=== PATIENT | male | born 1980 | race Caucasian/White ===

== ENCOUNTER 2016-11-25 16:13 | Emergency (ER) | payer MEDICAID, SELFPAY ==
[~2016-11-25] VITALS: Ht 175.3 cm; Wt 113.4 kg
[~2016-11-25 16:13] MED LIST: CELE40TA PO; Lamictal PO; Remeron PO; TRAZ50TA4 PO
[2016-11-25] MEDS ORDERED: ABIL400I IM (16:39)
[2016-11-25] MEDS ORDERED: KETOROLAC 30 MG/ML VIAL (J1885) IV ONE (17:00)
[2016-11-25] MEDS ORDERED: NS 1,000 ML IV ONE (17:00)
[2016-11-25 17:27] LABS: BASO # 0.1 K/mm3 (0.0-0.2); BASO % 0.9 % (0.0-1.0); EOS # 0.1 K/mm3 (0.0-0.50); EOS % 1.4 % (0.0-3.0); LARGE UNSTAINED CELL # 0.1 K/mm3 (0.0-0.4); LARGE UNSTAINED CELL % 1.3 % (0.0-4.0); LYMPH # 2.3 K/mm3 (1.5-4.5); LYMPH % 24.5 % (24.0-44.0); MEAN CORPUSCULAR HEMOGLOBIN 30.4 pg (27.0-33.0); MEAN CORPUSCULAR HGB CONC 34.9 g/dl (32.0-36.5); MONO # 0.6 K/mm3 (0.0-0.8); MONO % 5.9 % (0.0-5.0); NEUTROPHILS # 6.2 K/mm3 (1.8-7.7); NEUTROPHILS % 66.1 % (36.0-66.0); PLATELET COUNT, AUTOMATED 327 k/mm3 (150-450); RED CELL DISTRIBUTION WIDTH 12.6 % (11.5-14.5); WHITE BLOOD COUNT 9.4 K/mm3 (4.0-10.0)
[2016-11-25 17:47] LABS: ALBUMIN 4.6 GM/DL (3.2-5.2); ALBUMIN/GLOBULIN RATIO 1.53 (1.00-1.93); BILIRUBIN,DIRECT 0.2 MG/DL (0.0-0.2); BILIRUBIN,TOTAL 1.1 MG/DL (0.2-1.0); CALCIUM LEVEL 8.8 MG/DL (8.5-10.1); CREATININE FOR GFR 1.49 MG/DL (0.70-1.30); GLOMERULAR FILTRATION RATE 56.8 (>60); POTASSIUM SERUM 3.5 MEQ/L (3.5-5.1); TOTAL PROTEIN 7.6 GM/DL (6.4-8.2)
[2016-11-25 18:28] VITALS: BP 166/78
== END 2016-11-25 18:29 | disposition home or self-care (01) ==
LOC: M ED 17:00
DX: K42.9 Umbilical hernia without obstruction or gangrene (principal); E86.0 Dehydration; Z98.84 Bariatric surgery status
CPT/HCPCS: 74176; 80048; 80076; 82150; 83605; 83690; 85025; 86140; 96374; 99283; J1885

== ENCOUNTER 2017-01-16 09:51 | Emergency (ER) | payer OTHER, SELFPAY ==
[~2017-01-16] VITALS: Ht 175.3 cm; Wt 118.2 kg
[~2017-01-16 09:51] MED LIST changes: +ABIL400I IM; +TRAZ50TA11 PO; -TRAZ50TA4 PO
[2017-01-16] MEDS ORDERED: ARIP10TAB PO (10:37)
[2017-01-16 11:17] VITALS: BP 143/91
[2017-04-11] MEDS ORDERED: MIRT15TA3 PO (14:25)
[2017-04-11] MEDS ORDERED: CLON-412 PO (14:25)
[2017-04-21] MEDS ORDERED: DEPA250T32 PO (13:34)
[2017-04-21] MEDS ORDERED: RISP1TAB3 PO (13:37)
== END 2017-01-16 11:18 | disposition home or self-care (01) ==
LOC: M ED 10:37
DX: Z76.0 Encounter for issue of repeat prescription (principal); F33.8 Other recurrent depressive disorders; F41.9 Anxiety disorder, unspecified; G40.909 Epilepsy, unspecified, not intractable, without status epilepticus; Z91.030 Bee allergy status; Z91.018 Allergy to other foods; Z98.84 Bariatric surgery status; Z79.899 Other long term (current) drug therapy

== ENCOUNTER 2017-02-03 08:04 | Inpatient (IN) | payer OTHER ==
[~2017-02-03] VITALS: Ht 172.7 cm; Wt 119.2 kg
[~2017-02-03 08:04] MED LIST changes: +ARIP10TAB PO
[2017-02-03 09:23] LABS: MEAN CORPUSCULAR HEMOGLOBIN 30.5 pg (27.0-33.0); MEAN CORPUSCULAR HGB CONC 34.5 g/dl (32.0-36.5); MEAN CORPUSCULAR VOLUME 88.4 fl (80.0-96.0); WHITE BLOOD COUNT 6.4 K/mm3 (4.0-10.0)
[2017-02-03 09:49] LABS: ALBUMIN 3.5 GM/DL (3.2-5.2); ALBUMIN/GLOBULIN RATIO 1.21 (1.00-1.93); ALKALINE PHOSPHATASE 75 U/L (45-117); ALT/SGPT 31 U/L (12-78); ANION GAP 14 MEQ/L (8-16); AST/SGOT 26 U/L (15-37); BILIRUBIN,DIRECT 0.2 MG/DL (0.0-0.2); BILIRUBIN,TOTAL 0.5 MG/DL (0.2-1.0); BLOOD UREA NITROGEN 16 MG/DL (7-18); CALCIUM LEVEL 8.2 MG/DL (8.5-10.1); CARBON DIOXIDE LEVEL 20 MEQ/L (21-32); CHLORIDE LEVEL 115 MEQ/L (98-107); CREATININE FOR GFR 1.06 MG/DL (0.70-1.30); GLOMERULAR FILTRATION RATE > 60.0 (>60); GLUCOSE, FASTING 84 MG/DL (70-105); POTASSIUM SERUM 3.6 MEQ/L (3.5-5.1); SODIUM LEVEL 149 MEQ/L (136-145); TOTAL PROTEIN 6.4 GM/DL (6.4-8.2)
[2017-02-03 11:27] LABS: METHADONE URINE NEGATIVE (NEGATIVE)
[2017-02-03] MEDS ORDERED: MOM 30ML SUSPENSION UDC PO PRN (13:00)
[2017-02-03] MEDS ORDERED: MAALOX 30 ML SUSP *UDC PO PRN (13:00)
[2017-02-03] MEDS ORDERED: ACETAMINOPHEN TAB 650MG DOSE (2X325MG) PO PRN (13:00)
[2017-02-03] MEDS ORDERED: HALOPERIDOL 5 MG TAB PO PRN (13:00)
[2017-02-03 15:17] VITALS: BP 135/82
--- NOTE | 2017-02-03 20:57 | ECGEPIP ---
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
[2017-02-04 06:00] VITALS: BP 126/72
--- NOTE | 2017-02-04 08:56 | HPEPDOC ---
Medical History and Physical Date of Admission Feb 03, 2017 at 12:55 History and Physical PCP: None ATTENDING: Dr. Melecio Sales HPI: 36yoM admitted to [facility] for Depression, being medically examined today. Pt reports poor po intake for at least 2 days prior to admission. Denies any fevers, chills, weakness, fatigue, DON, CP, SOB, cough, palpitations, abdominal pain, N/V/D or changes in bowel or bladder habits. PMHx: Anxiety Depression Insomnia Alcohol use Substance use Obesity. BMI 38.8 History of alcohol-induced seizure 2010, patient states no seizure since. 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 ROS: As noted in HPI, otherwise 11pt ROS of systems reviewed and unremarkable. PE: GEN: 36 yo M, appears stated age. Well-nourished, well developed. No acute distress. Alert and oriented x 3. Pleasant, interactive. HEENT: Normocephalic, atraumatic. Pupils are equal, round, and reactive to light. Extraocular movements are intact. No nystagmus appreciated. Sclera are nonicteric. Conjunctiva without injection. Nose midline. Nasal turbinates without bogginess. EACs both patent BL. TMs both visualized and peralta with good cone of light, no bulging or erythema. No facial asymmetry. Moist mucous membranes. Dentition fair. Pharynx pink and moist, no cobblestoning. Neck supple , trachea midline. No lymphadenopathy or thyromegaly appreciated. CHEST: Regular rate and rhythm, +S1, +S2 LUNGS: Clear to auscultation bilaterally. No wheezes, rales, or rhonchi. Breathing appears symmetric and easy. Patient is speaking in full sentences. No accessory muscle use. ABD: Round, soft, non-tender, non-distended. +Bowel sounds throughout. No rebound or guarding. No costovertebral angle tenderness. EXT: Pulses 2+ bilaterally dorsalis pedis and radial. No lower extremity edema appreciated. SKIN: [place], dry, warm. Capillary refill <2sec. No rashes. NEURO: Alert and oriented x 3. Cranial nerves III-XII are intact. No focal deficits appreciated. EK02/03/17 SINUS RHYTHM NONSPECIFIC T-WAVE ABNORMALITY A&P: 36yoM admitted to [facility] for Depression 1. Psych. Plan per Psychiatry. EKG on file. 2. Hypernatremia. Recheck CMP. Patient reports improved oral intake currently. 3. Elevated CK. Recheck CK. 4. Follow up. No Primary Care Provider. Will attempt to establish PCP on discharge. 5. Substance use. Per psychiatry. Continue with MVI, Thiamine, and Folic Acid supplementation. 6. Mild anemia. Add iron studies, B12, folate. 7. Obesity. Complicates care. FBS WNL, TSH WNL. 8. H/O bariatric surgery. Iron studies, B12, folate as above. Check Vitamin D Level. 9. Staff member Abhishek present throughout exam. Vital Signs Vital Signs Date Time Temp Pulse Resp B/P (MAP) Pulse Ox O2 Delivery O2 Flow Rate FiO2 02/04/17 06:00 98.6 50 17 126/72 (90) Room Air 02/03/17 15:17 96 Laboratory Data Labs 24H Laboratory Tests 2 02/03/17 09:06: Anion Gap 14, Glomerular Filtration Rate > 60.0, Calcium Level 8.2L, Aspartate Amino Transf (AST/SGOT) 26, Alanine Aminotransferase (ALT/SGPT) 31, Alkaline Phosphatase 75, Total Bilirubin 0.5, Direct Bilirubin 0.2, Total Creatine Kinase 702H, Total Protein 6.4, Albumin 3.5, Albumin/Globulin Ratio 1.21, Thyroid Stimulating Hormone (TSH) 0.781, Salicylates Level < 1.7L, Acetaminophen Level < 2.0L, Ethyl Alcohol Level 0.030H 02/03/17 10:53: Urine Amphetamines Screen NEGATIVE, Urine Benzodiazepines Screen NEGATIVE, Urine Opiates Screen NEGATIVE, Urine Methadone Screen NEGATIVE, Urine Barbiturates Screen NEGATIVE, Urine Phencyclidine Screen NEGATIVE, Urine Cocaine Metabolite Screen POSITIVEH, Urine Cannabinoids Screen NEGATIVE CBC/BMP Laboratory Tests 02/03/17 09:06 Red Blood Count 4.32, Mean Corpuscular Volume 88.4, Mean Corpuscular Hemoglobin 30.5, Mean Corpuscular Hemoglobin Concent 34.5, Red Cell Distribution Width 13.0 Home Medications Scheduled Aripiprazole Monohydrate (Lai Danielletena) 400 Mg Inj, 400 MG IM QMONTH Allergies Coded Allergies: Bee Venom (Verified Allergy, Intermediate, swelling, 11/25/16) Soy Allergy (Unverified Allergy, Unknown, diarrhea, 06/08/14) Yessi Huffman Feb 04, 2017 08:56
[2017-02-04] MEDS: MULTIVITAMINS/MINERALS THERAP 1 TAB PO SCH (09:00)
[2017-02-04] MEDS ORDERED: VITAMIN D 50,000 UNITS CAPSULE (ERGOCALCIFEROL 1.25MG) PO SCH (09:00)
[2017-02-04] MEDS: THIAMINE 100 MG TAB PO SCH (09:00)
[2017-02-04] MEDS: FOLIC ACID 1 MG TAB PO SCH (09:00)
[2017-02-04 09:52] LABS: MEAN CORPUSCULAR HEMOGLOBIN 30.5 pg (27.0-33.0); MEAN CORPUSCULAR HGB CONC 34.4 g/dl (32.0-36.5); MEAN CORPUSCULAR VOLUME 88.6 fl (80.0-96.0); RED CELL DISTRIBUTION WIDTH 12.8 % (11.5-14.5); WHITE BLOOD COUNT 5.7 K/mm3 (4.0-10.0)
[2017-02-04 10:15] LABS: ALBUMIN 3.3 GM/DL (3.2-5.2); ALBUMIN/GLOBULIN RATIO 1.22 (1.00-1.93); ALKALINE PHOSPHATASE 74 U/L (45-117); ALT/SGPT 30 U/L (12-78); ANION GAP 7 MEQ/L (8-16); AST/SGOT 20 U/L (15-37); BILIRUBIN,TOTAL 0.5 MG/DL (0.2-1.0); BLOOD UREA NITROGEN 14 MG/DL (7-18); CALCIUM LEVEL 7.8 MG/DL (8.5-10.1); CARBON DIOXIDE LEVEL 29 MEQ/L (21-32); CHLORIDE LEVEL 110 MEQ/L (98-107); CREATININE FOR GFR 1.18 MG/DL (0.70-1.30); GLOMERULAR FILTRATION RATE > 60.0 (>60); GLUCOSE, FASTING 103 MG/DL (70-105); MAGNESIUM LEVEL 2.2 MG/DL (1.8-2.4); SODIUM LEVEL 146 MEQ/L (136-145)
[2017-02-04 10:19] LABS: PERCENT SATURATION 32.7 % (19.7-50.0)
[2017-02-04 11:05] LABS: FOLATE 10.4 NG/ML (>5.4)
[2017-02-04 18:00] VITALS: BP 107/60
[2017-02-04] MEDS: LORazepam 1 MG TAB PO PRN (20:47)
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
[2017-02-05 07:05] VITALS: BP 131/66
[2017-02-05 07:27] LABS: ALBUMIN 3.3 GM/DL (3.2-5.2); ALBUMIN/GLOBULIN RATIO 1.22 (1.00-1.93); ALKALINE PHOSPHATASE 67 U/L (45-117); ALT/SGPT 27 U/L (12-78); ANION GAP 6 MEQ/L (8-16); AST/SGOT 12 U/L (15-37); BILIRUBIN,TOTAL 0.4 MG/DL (0.2-1.0); BLOOD UREA NITROGEN 9 MG/DL (7-18); CALCIUM LEVEL 7.7 MG/DL (8.5-10.1); CARBON DIOXIDE LEVEL 29 MEQ/L (21-32); CHLORIDE LEVEL 112 MEQ/L (98-107); CREATININE FOR GFR 1.02 MG/DL (0.70-1.30); GLOMERULAR FILTRATION RATE > 60.0 (>60); GLUCOSE, FASTING 80 MG/DL (70-105); SODIUM LEVEL 147 MEQ/L (136-145)
[2017-02-05] MEDS: FOLIC ACID 1 MG TAB PO SCH (09:45)
[2017-02-05] MEDS: LORazepam 1 MG TAB PO PRN ×3 (09:45→20:17)
[2017-02-05] MEDS: THIAMINE 100 MG TAB PO SCH (09:45)
[2017-02-05] MEDS: MULTIVITAMINS/MINERALS THERAP 1 TAB PO SCH (09:45)
[2017-02-05 18:00] VITALS: BP 127/68
[2017-02-05] MEDS: traZODone 50 MG TAB PO PRN (20:16)
[2017-02-06 06:51] VITALS: BP 113/63
[2017-02-06] MEDS: MULTIVITAMINS/MINERALS THERAP 1 TAB PO SCH (08:35)
[2017-02-06] MEDS: THIAMINE 100 MG TAB PO SCH (08:35)
[2017-02-06] MEDS: FOLIC ACID 1 MG TAB PO SCH (08:35)
[2017-02-06] MEDS: LORazepam 1 MG TAB PO PRN (11:01)
--- NOTE | 2017-02-06 15:21 | MHIPN ---
DATE: 02/05/2017 The patient today states, "I am doing good." He has no complaints. He says that his mood is good. MENTAL STATUS EXAMINATION: The patient is alert and oriented times three. Eye contact is fair. Psychomotor activity is normal. There is no formal thought disorder. Mood is good. Affect is constricted but appropriate to his mood. He is not psychotic. He is denying suicidal or homicidal ideations. Concentration is fair. Memory is fairly good. Insight and judgment fair. DIAGNOSES: DIAGNOSES: 1. Unspecified mood disorder. 2. R/O Bipolar disorder, mixed. 3. Crack use disorder 4. Alcohol use disorder 5. cocaine use disorder TREATMENT PLAN: At this point, we will continue to monitor the patient for continued resolution of suicidal ideation and continued stabilization of his mood. We will continue to titrate his medications as indicated. KATELYNN
[2017-02-06 18:44] VITALS: BP 138/78
[2017-02-06] MEDS: traZODone 50 MG TAB PO PRN (20:15)
--- NOTE | 2017-02-07 06:43 | MHIPN ---
DATE: 02/06/2017 Patient today states that is doing good. He says "I'm ready to go home." He said he slept good. He has no complaints. MENTAL STATUS EXAMINATION: He is alert and oriented times three. Pleasant and cooperative. Verbally spontaneous. He has no formal thought disorder. He says his mood is good. Affect is flat. He is not psychotic. He is denying suicidal or homicidal ideation. Concentration is fair. Insight and judgment is fair. DIAGNOSES: 1. Unspecified mood disorder. 2. R/O Bipolar disorder, mixed. 3. Crack use disorder 4. Alcohol use disorder 5. cocaine use disorder TREATMENT PLAN: At this point, will continue to monitor the patient for continued resolution of suicidal ideations and continued stabilization. Edited 02/07/2017 @ [id number] olga PACE
[2017-02-07 06:45] VITALS: BP 111/55
[2017-02-07] MEDS: FOLIC ACID 1 MG TAB PO SCH (08:14)
[2017-02-07] MEDS: THIAMINE 100 MG TAB PO SCH (08:14)
[2017-02-07] MEDS: MULTIVITAMINS/MINERALS THERAP 1 TAB PO SCH (08:14)
[2017-02-07] MEDS ORDERED: ARIPiprazole MONOHYDRATE 400 MG INJ (ABILIFY)(J0401) IM SCH (09:00)
[2017-02-07] MEDS: LORazepam 1 MG TAB PO PRN (17:15)
[2017-02-07 18:00] VITALS: BP 112/51
[2017-02-07] MEDS: traZODone 50 MG TAB PO PRN (20:11)
--- NOTE | 2017-02-08 07:18 | MHIPN ---
DATE: 02/07/2017 SUBJECTIVE: Patient reports he is worried because as of tomorrow, he does not have a person to take care of his 11-year-old son, his father will not be able to do it anymore. For that reason, he requests to be discharged, he says his mood has improved since he has been on the Abilify and that he has no intention of using drugs again. MENTAL STATUS EXAMINATION: Patient is alert and oriented times three, cooperative with interview, dressed in hospital clothes. He looks calm and composed, his mood is euthymic, his affect is congruent to mood, full range, appropriate. He denies auditory or visual hallucinations, is not responding to internal stimuli, has no though delusions. Denies suicidal and homicidal ideation. His memory is intact. His attention and concentration are good. His judgment and insight are fair. DIAGNOSIS: 1. Unspecified mood disorder. 2. Rule out bipolar disorder with mixed emotions. 3. Rule out substance induced mood disorder. 4. Substance use disorder. TREATMENT PLAN: Patient was given this afternoon his Abilify Maintena injection, discussed with him future treatment, says he wants to go to [facility] for his substance abuse to the dual diagnosis clinic. He says that he feels fine and he needs to take care of his son and go back to work, discussed with this insurance underwriter his goals and his plans for the future. This insurance underwriter believes the patient is okay to be discharged tomorrow. Will discuss case with case work aide. Will followup.
[2017-02-08 07:29] VITALS: BP 96/52
[2017-02-08] MEDS: MULTIVITAMINS/MINERALS THERAP 1 TAB PO SCH (08:24)
[2017-02-08] MEDS: THIAMINE 100 MG TAB PO SCH (08:24)
[2017-02-08] MEDS: FOLIC ACID 1 MG TAB PO SCH (08:24)
[2017-02-08] MEDS ORDERED: ARIP5TA PO (09:03)
[2017-02-08] MEDS ORDERED: ABIL400I IM (09:03)
--- NOTE | 2017-02-08 21:29 | MHDSPDOC ---
[facility] Discharge Summary Discharge Summary DATE OF ADMISSION: Feb 03, 2017 at 12:55 DATE OF DISCHARGE: Feb 08, 2017 at 10:45 DISCHARGE DIAGNOSES: 1. Bipolar disorder,current episode mixed, moderate. REASON FOR ADMISSION: Patient is a 36-year-old male, who was brought to the ED because he had suicidal thoughts, wanted to "end it all". Patient reports that he had his last Abilify injection about a little bit over a month now. He says he missed his appointment and called to re schedule but he couldn't go the next day because he could not skip [employer] of work (two days in a row) and they wouldn't give him an appointment at a date and time that would work out for him. About five days ago he began feeling "manic", he couldn't go to sleep, had too much energy, felt agitated and anxious but at the same time he was feeling sad. He decided to start using crack because "it is hard to believe but crack calms me down". He states that he started using alcohol when he was approximately 15 years old and cocaine when he was 22, then, he started using crack. The only thing that has helped him to stay out of drugs has been Abilify. He says he uses drugs to "self medicate" CONSULTANTS INVOLVED: None TREATMENT AND PROGRESS ON THE UNIT : Patient had a good response to medications as it was expected because he already had been stabilized on Abilify before he even came to [facility]. As a matter of fact, it was because he missed one injection of Abilify Maintenna that he started using drugs again. He claims that crack cocaine has a calming effect on him, something that he struggles with, because most people don't believe this substance could calm him. He said he started using crack because he had been unable to sleep for 3/4 days and still he had lots of energy but he felt unstable, irritable and stressed. That prompted his suicidal ideation, thinking he could end his life by injecting air in his veins. Patient has a history of substance abuse and had two DUI'S, is on probation for that reason. yesterday, 02/07/17 he reported an improvement in his mood, side he was not longer suicidal, contracted for safety and said he had his family support if he was discharged. Cse manager mining contacted patient's mother who said felt comfortable with him being discharged. HOSPITAL COURSE: As above DISCHARGE ASSESSMENT: Patient was stable upon discharge. Was not psychotic, not suicidal, not homicidal, not delusional. MENTAL STATUS EXAMINATION ON DISCHARGE: Patient is a 36-year old male, who is alert, oriented, cooperative with interview, with good eye contact. Speech is Fluid and spontaneous. Language skills are Fair. Thought processes including: Intact. Thought content: Coherent. Abstract reasoning, and computation: Fair. Description of associations: Good. Description of abnormal or psychotic thoughts: Not present. Judgment: Improved. Insight: Improved. Orientation to Oriented x 3. Recent and remote memory: Intact. Attention span and concentration: Good. Language: Normal. Fund of knowledge: Fair. Mood: "I'm fine". Affect: congruent to mood, appropriate, full range. MEDICATIONS ON DISCHARGE: - Abilify 5 mgs PO BID for bipolar depression - Abilify Mantenna 400 mgs IM Q30 days, next dose on 03/10/17 for bipolar depression PLAN/FOLLOWUP ARRANGEMENTS: Mental Health Appt 1 * [facility] * Address of Clinic or Practice [address] * * Chemical Dependency Appt1 * Chemical Dependency [facility] * * Additional information WALK IN APPOINTMENT TUESDAYS AND THURSDAYS [phone] * Case Management * Care Coordination/Case Management/Supervision Transitional Living Serv * * Medical * [facility]; * Established With This Provider No NEW PT APPOINTMENT * Date Feb 23, 2017 * Time 09:30 * Address of Clinic or Practice [address] [place] [address] * * Additional information The amount of time spent in the coordination of care for this patient was approximately 60 minutes. Vital Signs/I&Os Vital Signs Date Time Temp Pulse Resp B/P (MAP) Pulse Ox O2 Delivery O2 Flow Rate FiO2 02/08/17 07:29 97.5 53 16 96/52 (67) Room Air 02/03/17 15:17 96 Medications Scheduled Aripiprazole (Aripiprazole) 5 Mg Tab, 5 MG PO BID for BIPOLAR DEPRESION, #14 Aripiprazole Monohydrate (Abilify Maintena) 400 Mg Inj, 400 MG IM Q30D for BIPOLAR DEPRESSION, #1 Next injection is due on 03/10/17 Allergies Coded Allergies: Bee Venom (Verified Allergy, Intermediate, swelling, 11/25/16) Soy Allergy (Unverified Allergy, Unknown, diarrhea, 06/08/14) ILDA LOPEZ MD Feb 08, 2017 21:29
[2017-04-11] MEDS ORDERED: MIRT15TA3 PO (14:25)
[2017-04-11] MEDS ORDERED: CLON-412 PO (14:25)
[2017-04-21] MEDS ORDERED: DEPA250T32 PO (13:34)
[2017-04-21] MEDS ORDERED: RISP1TAB3 PO (13:37)
== END 2017-02-08 10:45 | disposition home or self-care (01) | DRG 753 ==
LOC: M ED 08:04 → M ED INP 12:55 → M PSY 15:01
PROVIDERS: ADMIT Psychiatry & Neurology Psychiatry; ATTEND Psychiatry & Neurology Psychiatry
DX: F31.62 Bipolar disorder, current episode mixed, moderate (principal); E87.0 Hyperosmolality and hypernatremia; R45.851 Suicidal ideations; F19.10 Other psychoactive substance abuse, uncomplicated; Z79.899 Other long term (current) drug therapy; Z91.030 Bee allergy status; Z91.018 Allergy to other foods; E66.9 Obesity, unspecified; Z68.38 Body mass index [BMI] 38.0-38.9, adult; Z98.84 Bariatric surgery status; Z83.3 Family history of diabetes mellitus; Z82.49 Family history of ischemic heart disease and other diseases of the circulatory system; R74.8 Abnormal levels of other serum enzymes

== ENCOUNTER 2017-03-13 17:29 | Emergency (ER) | payer OTHER ==
[~2017-03-13] VITALS: Ht 175.3 cm; Wt 109.1 kg
[~2017-03-13 17:29] MED LIST changes: +ARIP5TA PO
[2017-03-13] MEDS ORDERED: NALT50TA4 PO (17:43)
[2017-03-13] MEDS ORDERED: GABA-282 PO (17:43)
[2017-03-13] MEDS ORDERED: ONDANSETRON 4MG/2ML VIAL (J2405) IV ONE (18:30)
[2017-03-13] MEDS ORDERED: NS 1,000 ML IV ONE (18:30)
[2017-03-13] MEDS ORDERED: KETOROLAC 30 MG/ML VIAL (J1885) IV ONE (18:30)
--- NOTE | 2017-03-13 19:20 | REPUSA ---
Clinical history: Right upper quadrant pain. Findings: The pancreas is limited in visualization secondary to overlying bowel gas, but appears germaine sly unremarkable. The liver demonstrates uniform echotexture and echogenicity, with no mass lesions. The gallbladder is unremarkable. The common bile duct measures 5 mm and is within normal limits. The right kidney measures 10.5 cm in length and is unremarkable. There is no ascites. Impression: Unremarkable ultrasound examination of the right upper quadrant.
[2017-03-13 19:38] LABS: CALCIUM OXALATE CRYSTALS SMALL
[2017-03-13 19:38] LABS: BASO # 0.1 K/mm3 (0.0-0.2); BASO % 1.2 % (0.0-1.0); EOS # 0.4 K/mm3 (0.0-0.50); EOS % 4.6 % (0.0-3.0); LARGE UNSTAINED CELL # 0.1 K/mm3 (0.0-0.4); LARGE UNSTAINED CELL % 1.4 % (0.0-4.0); LYMPH # 2.4 K/mm3 (1.5-4.5); LYMPH % 26.7 % (24.0-44.0); MEAN CORPUSCULAR HEMOGLOBIN 30.4 pg (27.0-33.0); MEAN CORPUSCULAR HGB CONC 34.9 g/dl (32.0-36.5); MEAN CORPUSCULAR VOLUME 87.2 fl (80.0-96.0); MONO # 0.6 K/mm3 (0.0-0.8); MONO % 6.7 % (0.0-5.0); NEUTROPHILS # 5.1 K/mm3 (1.8-7.7); NEUTROPHILS % 59.5 % (36.0-66.0); PLATELET COUNT, AUTOMATED 275 k/mm3 (150-450); RED CELL DISTRIBUTION WIDTH 13.4 % (11.5-14.5); WHITE BLOOD COUNT 8.5 K/mm3 (4.0-10.0)
[2017-03-13 19:44] LABS: ALBUMIN 3.6 GM/DL (3.2-5.2); ALBUMIN/GLOBULIN RATIO 1.24 (1.00-1.93); ALKALINE PHOSPHATASE 72 U/L (45-117); ALT/SGPT 26 U/L (12-78); AMYLASE 35 U/L (25-115); ANION GAP 10 MEQ/L (8-16); AST/SGOT 14 U/L (15-37); BILIRUBIN,DIRECT 0.1 MG/DL (0.0-0.2); BILIRUBIN,TOTAL 0.3 MG/DL (0.2-1.0); BLOOD UREA NITROGEN 16 MG/DL (7-18); CALCIUM LEVEL 8.3 MG/DL (8.5-10.1); CARBON DIOXIDE LEVEL 25 MEQ/L (21-32); CHLORIDE LEVEL 114 MEQ/L (98-107); CREATININE FOR GFR 1.23 MG/DL (0.70-1.30); GLOMERULAR FILTRATION RATE > 60.0 (>60); GLUCOSE, FASTING 67 MG/DL (70-105); SODIUM LEVEL 149 MEQ/L (136-145); TOTAL PROTEIN 6.5 GM/DL (6.4-8.2)
[2017-03-13] MEDS ORDERED: PROT1TAB2 PO (20:06)
[2017-03-13] MEDS ORDERED: SUCR1SS PO (20:06)
[2017-03-13 20:13] VITALS: BP 138/84
[2017-03-13] MEDS ORDERED: PANTOPRAZOLE 20 MG TAB PO ONE (20:15)
[2017-03-13] MEDS ORDERED: SUCRALFATE SUSP 1GM/10ML UD PO ONE (20:15)
[2017-03-13] MEDS ORDERED: PANTOPRAZOLE 40MG TAB (PROTONIX) PO ONE (20:15)
[2017-04-11] MEDS ORDERED: MIRT15TA3 PO (14:25)
[2017-04-11] MEDS ORDERED: CLON-412 PO (14:25)
[2017-04-21] MEDS ORDERED: DEPA250T32 PO (13:34)
[2017-04-21] MEDS ORDERED: RISP1TAB3 PO (13:37)
== END 2017-03-13 20:35 | disposition home or self-care (01) ==
LOC: M ED 17:29
DX: K29.20 Alcoholic gastritis without bleeding (principal); R56.9 Unspecified convulsions; Z98.84 Bariatric surgery status; Z87.442 Personal history of urinary calculi; Z91.018 Allergy to other foods; Z91.030 Bee allergy status; Z79.899 Other long term (current) drug therapy
CPT/HCPCS: 36415; 76705; 80048; 80076; 81001; 82150; 83690; 85025; 96361; 96374; 96375; 99283; J1885; J2405

== ENCOUNTER 2017-03-20 18:53 | Inpatient (IN) | payer OTHER ==
[~2017-03-20] VITALS: Ht 175.3 cm; Wt 118.0 kg
[~2017-03-20 18:53] MED LIST changes: +GABA-282 PO; +NALT50TA4 PO; +PROT1TAB2 PO; +SUCR1SS PO
[2017-03-20 20:02] LABS: MEAN CORPUSCULAR HEMOGLOBIN 31.3 pg (27.0-33.0); MEAN CORPUSCULAR HGB CONC 35.8 g/dl (32.0-36.5); MEAN CORPUSCULAR VOLUME 87.6 fl (80.0-96.0); RED CELL DISTRIBUTION WIDTH 13.5 % (11.5-14.5); WHITE BLOOD COUNT 5.7 K/mm3 (4.0-10.0)
[2017-03-20 20:22] LABS: METHADONE URINE NEGATIVE (NEGATIVE)
[2017-03-20 20:33] LABS: ALBUMIN 3.6 GM/DL (3.2-5.2); ALBUMIN/GLOBULIN RATIO 1.29 (1.00-1.93); ALKALINE PHOSPHATASE 86 U/L (45-117); ALT/SGPT 28 U/L (12-78); ANION GAP 12 MEQ/L (8-16); AST/SGOT 25 U/L (15-37); BILIRUBIN,DIRECT < 0.1 MG/DL (0.0-0.2); BILIRUBIN,TOTAL 0.4 MG/DL (0.2-1.0); BLOOD UREA NITROGEN 8 MG/DL (7-18); CALCIUM LEVEL 7.8 MG/DL (8.5-10.1); CARBON DIOXIDE LEVEL 24 MEQ/L (21-32); CHLORIDE LEVEL 113 MEQ/L (98-107); CREATININE FOR GFR 1.16 MG/DL (0.70-1.30); GLOMERULAR FILTRATION RATE > 60.0 (>60); GLUCOSE, FASTING 115 MG/DL (70-105); POTASSIUM SERUM 3.4 MEQ/L (3.5-5.1); SODIUM LEVEL 149 MEQ/L (136-145); TOTAL PROTEIN 6.4 GM/DL (6.4-8.2)
[2017-03-21] MEDS ORDERED: NALTREXONE 50 MG TAB PO ONE (08:30)
[2017-03-21] MEDS ORDERED: PANTOPRAZOLE 40MG TAB (PROTONIX) PO ONE (08:30)
[2017-03-21] MEDS ORDERED: GABAPENTIN 300 MG CAP PO ONE (08:30)
[2017-03-21] MEDS ORDERED: SUCRALFATE SUSP 1GM/10ML UD PO ONE (08:30)
[2017-03-21] MEDS ORDERED: PANT40TA2 PO (13:14)
[2017-03-21] MEDS ORDERED: SUCR1SS PO (13:14)
[2017-03-21] MEDS ORDERED: ABIL400I IM (13:14)
[2017-03-21 14:10] VITALS: BP 137/83
[2017-03-21] MEDS ORDERED: ACETAMINOPHEN TAB 650MG DOSE (2X325MG) PO PRN (16:15)
[2017-03-21] MEDS ORDERED: MOM 30ML SUSPENSION UDC PO PRN (16:15)
[2017-03-21] MEDS ORDERED: traZODone 50 MG TAB PO PRN (16:15)
[2017-03-21] MEDS ORDERED: LORazepam 2 MG TAB PO PRN (16:15)
[2017-03-21] MEDS ORDERED: MAALOX 30 ML SUSP *UDC PO PRN (16:15)
[2017-03-21] MEDS ORDERED: THIAMINE 100 MG TAB PO ONE (16:30)
[2017-03-21] MEDS: hydrOXYzine 25 MG TAB PO PRN (16:36)
[2017-03-21 16:42] VITALS: BP 137/83
[2017-03-21] MEDS: SUCRALFATE SUSP 1GM/10ML UD PO SCH ×2 (17:30→21:45)
[2017-03-21] MEDS ORDERED: ARIPiprazole MONOHYDRATE 400 MG INJ (ABILIFY)(J0401) IM SCH (18:00)
[2017-03-21] MEDS: GABAPENTIN 300 MG CAP PO SCH (21:45)
[2017-03-21 21:55] VITALS: BP 128/72
[2017-03-22] VITALS (7 sets, daily range): BP systolic 116–148; BP diastolic 58–85
[2017-03-22] MEDS: SUCRALFATE SUSP 1GM/10ML UD PO SCH ×4 (08:27→20:38)
[2017-03-22] MEDS: PANTOPRAZOLE 40MG TAB (PROTONIX) PO SCH (08:27)
[2017-03-22] MEDS: THIAMINE 100 MG TAB PO SCH ×2 (08:27→20:31)
[2017-03-22] MEDS: FOLIC ACID 1 MG TAB PO SCH (08:27)
[2017-03-22] MEDS: NALTREXONE 50 MG TAB PO SCH (08:27)
[2017-03-22] MEDS: MULTIVITAMINS/MINERALS THERAP 1 TAB PO SCH (08:27)
[2017-03-22] MEDS: GABAPENTIN 300 MG CAP PO SCH ×3 (08:27→20:31)
[2017-03-22] MEDS: hydrOXYzine 25 MG TAB PO PRN (08:29)
--- NOTE | 2017-03-22 09:55 | HPEPDOC ---
[facility] Medical History & Physical Date of Admission Mar 21, 2017 History and Physical PCP: None ATTENDING: Dr. Melecio Sales HPI: 36yoM admitted to [facility] for unspecified depressive disorder, being medically examined today. Patient was most recently seen at the emergency department 03/13/17 related to abdominal pain felt related to acute alcoholic gastritis. Patient was started on Protonix 40 mg daily and Carafate before meals at bedtime. Patient states since then his abdominal discomfort has improved. Pt reports poor po intake prior to admission. Patient states he has continued to consume between approximately 10-12 16 ounce beers per day. Denies any fevers, chills, weakness, fatigue, DON, CP, SOB, cough, palpitations, abdominal pain, N/V/D or changes in bowel or bladder habits. PMHx: Anxiety Depression Insomnia Alcohol use Substance use Obesity. BMI 35.8 History of alcohol-induced seizure 2010, patient states no seizure since. GERD/Gastritis Vitamin D deficiency PSHX: Gastric bypass 2006 SOCHX: Resides in: [facility] Marital Status: Single Kids: 2 Employment: Unemployed Tobacco use: Denies ETOH: Daily, "alot" , " can't pinpoint exact amount " (States 10-12 16 oz) Illicit Drugs: Crack cocaine patient states uses about 2 times per month. IV Drug Use: Denies Tattoos done unprofessionally: Denies FAMHX: Mother: Alive, diabetes, hypertension Father: Alive, unknown Siblings: Alive, diabetes Children: Alive, well Unexpected deaths due to medical reasons: None. ROS: As noted in HPI, otherwise 11pt ROS of systems reviewed and unremarkable. PE: GEN: 36 yo M, appears stated age. Well-nourished, well developed. No acute distress. Alert and oriented x 3. Avoids eye contact, reluctant to answer questions. HEENT: Normocephalic, atraumatic. Pupils are equal, round, and reactive to light. Extraocular movements are intact. No nystagmus appreciated. Sclera are nonicteric. Conjunctiva without injection. Nose midline. Nasal turbinates without bogginess. EACs both patent BL. TMs both visualized and peralta with good cone of light, no bulging or erythema. No facial asymmetry. Moist mucous membranes. Dentition fair. Pharynx pink and moist, no cobblestoning. Neck supple , trachea midline. No lymphadenopathy or thyromegaly appreciated. CHEST: Regular rate and rhythm, +S1, +S2 LUNGS: Clear to auscultation bilaterally. No wheezes, rales, or rhonchi. Breathing appears symmetric and easy. Patient is speaking in full sentences. No accessory muscle use. ABD: Round, soft, mild epigastric tenderness is noted, non-distended. +Bowel sounds throughout. No rebound or guarding. No costovertebral angle tenderness. EXT: Pulses 2+ bilaterally dorsalis pedis and radial. No lower extremity edema appreciated. SKIN: [place], dry, warm. Capillary refill <2sec. No rashes. NEURO: Alert and oriented x 3. Cranial nerves III-XII are intact. No focal deficits appreciated. EKG: Pending Right upper quadrant ultrasound 03/13/17 Unremarkable ultrasound examination of the right upper quadrant. A&P: 36yoM admitted to [facility] for unspecified depressive disorder 1. Psych. Plan per Psychiatry. EKG pending. 2. Hypernatremia. Recheck CMP. Patient reports improved oral intake currently. 3. Hypokalemia. Recheck CMP. Patient reports improved oral intake. 4. Follow up. No Primary Care Provider. Will attempt to establish PCP on discharge. 5. Substance use. Per psychiatry. Continue with MVI, Thiamine, and Folic Acid supplementation. 6. Vitamin D deficiency. Resume supplement. Vitamin D level noted to be 16.9 05/13. 7. Obesity. Complicates care. FBS WNL, TSH WNL. 8. H/O bariatric surgery. 9. GERD/Gastritis. Continue Protonix 40 mg daily. Continue Carafate 1 g before meals and at bedtime. Amylase and lipase are noted within normal limits on admission. 10. Staff member Abhishek present throughout exam. Vital Signs Vital Signs Date Time Temp Pulse Resp B/P (MAP) Pulse Ox O2 Delivery O2 Flow Rate FiO2 03/22/17 06:30 98.3 60 18 116/69 (85) 03/21/17 14:10 97 Room Air Laboratory Data Labs 24H Item Value Date Time Sodium Level 149 MEQ/L H 03/20/171944 Potassium Level 3.4 MEQ/L L 03/20/171944 Chloride Level 113 MEQ/L H 03/20/171944 Carbon Dioxide Level 24 MEQ/L 03/20/171944 Anion Gap 12 MEQ/L 03/20/171944 Blood Urea Nitrogen 8 MG/DL 03/20/171944 Creatinine 1.16 MG/DL 03/20/171944 Glomerular Filtration Rate > 60.0 03/20/171944 Fasting Glucose 115 MG/DL H 03/20/171944 Calcium Level 7.8 MG/DL L 03/20/171944 Total Bilirubin 0.4 MG/DL 03/20/171944 Direct Bilirubin < 0.1 MG/DL 03/20/171944 Aspartate Amino Transf (AST/SGOT) 25 U/L 03/20/171944 Alanine Aminotransferase (ALT/SGPT) 28 U/L 03/20/171944 Alkaline Phosphatase 86 U/L 03/20/171944 Total Protein 6.4 GM/DL 03/20/171944 Albumin 3.6 GM/DL 03/20/171944 Albumin/Globulin Ratio 1.29 03/20/171944 Thyroid Stimulating Hormone (TSH) 0.436 uIU/ML 03/20/171944 White Blood Count 5.7 K/mm3 03/20/171944 Red Blood Count 4.39 M/mm3 03/20/171944 Hemoglobin 13.8 g/dl L 03/20/171944 Hematocrit 38.5 % L 03/20/171944 Mean Corpuscular Volume 87.6 fl 03/20/171944 Mean Corpuscular Hemoglobin 31.3 pg 03/20/171944 Mean Corpuscular Hemoglobin Concent 35.8 g/dl 03/20/171944 Red Cell Distribution Width 13.5 % 03/20/171944 Platelet Count 259 k/mm3 03/20/171944 Salicylates Level < 1.7 MG/DL L 03/20/171944 Urine Opiates Screen NEGATIVE 03/20/171944 Urine Methadone Screen NEGATIVE 03/20/171944 Acetaminophen Level < 2.0 UG/ML L 03/20/171944 Urine Barbiturates Screen NEGATIVE 03/20/171944 Urine Phencyclidine Screen NEGATIVE 03/20/171944 Urine Amphetamines Screen NEGATIVE 03/20/171944 Urine Benzodiazepines Screen NEGATIVE 03/20/171944 Urine Cocaine Metabolite Screen POSITIVE H 9/24/17 1945 Urine Cannabinoids Screen NEGATIVE 03/20/171944 Ethyl Alcohol Level 0.061 % H 03/20/171944 Home Medications Scheduled Aripiprazole Monohydrate (Abilify Maintena) 400 Mg Inj, 400 MG IM QMONTH Naltrexone HCl (Naltrexone HCl) 50 Mg Tab, 50 MG PO DAILY Pantoprazole Sodium (Pantoprazole Sodium) 40 Mg Tab, 40 MG PO DAILY Sucralfate (Carafate) 1 Gm/10 Ml Cynthia, 10 ML PO ACHS Scheduled PRN Gabapentin (Gabapentin) 300 Mg Cap, 300 MG PO TID PRN for PAIN Allergies Coded Allergies: Bee Venom (Verified Allergy, Intermediate, swelling, 11/25/16) Soy Allergy (Unverified Allergy, Unknown, diarrhea, 06/08/14) Yessi Huffman Mar 22, 2017 09:55
[2017-03-22] MEDS: VITAMIN D 1,000 INTERNATIONAL UNITS TABLET PO SCH (10:18)
[2017-03-22 10:44] LABS: ALBUMIN 3.1 GM/DL (3.2-5.2); ALBUMIN/GLOBULIN RATIO 1.11 (1.00-1.93); ALKALINE PHOSPHATASE 71 U/L (45-117); ALT/SGPT 22 U/L (12-78); AMYLASE 37 U/L (25-115); ANION GAP 1 MEQ/L (8-16); AST/SGOT 11 U/L (15-37); BILIRUBIN,TOTAL 0.3 MG/DL (0.2-1.0); BLOOD UREA NITROGEN 11 MG/DL (7-18); CALCIUM LEVEL 8.3 MG/DL (8.5-10.1); CARBON DIOXIDE LEVEL 32 MEQ/L (21-32); CHLORIDE LEVEL 110 MEQ/L (98-107); CREATININE FOR GFR 1.11 MG/DL (0.70-1.30); GLOMERULAR FILTRATION RATE > 60.0 (>60); GLUCOSE, FASTING 86 MG/DL (70-105); SODIUM LEVEL 143 MEQ/L (136-145); TOTAL PROTEIN 5.9 GM/DL (6.4-8.2)
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
[2017-03-22] MEDS: cloNIDine 0.1 MG TAB PO SCH (20:31)
[2017-03-22] MEDS: MIRTAZAPINE 15 MG TAB PO SCH (20:31)
--- NOTE | 2017-03-22 21:16 | ECGEPIP ---
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
[2017-03-23] MEDS: SUCRALFATE SUSP 1GM/10ML UD PO SCH ×4 (06:35→20:57)
[2017-03-23 06:51] LABS: MEAN CORPUSCULAR HEMOGLOBIN 30.8 pg (27.0-33.0); MEAN CORPUSCULAR HGB CONC 34.5 g/dl (32.0-36.5); MEAN CORPUSCULAR VOLUME 89.3 fl (80.0-96.0); RED CELL DISTRIBUTION WIDTH 13.4 % (11.5-14.5); WHITE BLOOD COUNT 7.3 10^3/uL (4.0-10.0)
[2017-03-23 07:14] LABS: ALBUMIN 3.1 GM/DL (3.2-5.2); ALBUMIN/GLOBULIN RATIO 1.11 (1.00-1.93); ALKALINE PHOSPHATASE 72 U/L (45-117); ALT/SGPT 20 U/L (12-78); ANION GAP 3 MEQ/L (8-16); AST/SGOT 9 U/L (15-37); BILIRUBIN,TOTAL 0.3 MG/DL (0.2-1.0); BLOOD UREA NITROGEN 8 MG/DL (7-18); CALCIUM LEVEL 8.4 MG/DL (8.5-10.1); CARBON DIOXIDE LEVEL 31 MEQ/L (21-32); CHLORIDE LEVEL 110 MEQ/L (98-107); CREATININE FOR GFR 1.13 MG/DL (0.70-1.30); GLOMERULAR FILTRATION RATE > 60.0 (>60); GLUCOSE, FASTING 115 MG/DL (70-105); POTASSIUM SERUM 3.7 MEQ/L (3.5-5.1); SODIUM LEVEL 144 MEQ/L (136-145); TOTAL PROTEIN 5.9 GM/DL (6.4-8.2)
[2017-03-23 07:16] VITALS: BP 136/66
[2017-03-23 08:00] VITALS: BP 107/67
[2017-03-23] MEDS: hydrOXYzine 25 MG TAB PO PRN (08:38)
[2017-03-23] MEDS: GABAPENTIN 300 MG CAP PO SCH ×3 (08:38→20:58)
[2017-03-23] MEDS: MULTIVITAMINS/MINERALS THERAP 1 TAB PO SCH (08:38)
[2017-03-23] MEDS: FOLIC ACID 1 MG TAB PO SCH (08:38)
[2017-03-23] MEDS: THIAMINE 100 MG TAB PO SCH ×2 (08:39→20:57)
[2017-03-23] MEDS: PANTOPRAZOLE 40MG TAB (PROTONIX) PO SCH (08:39)
[2017-03-23] MEDS: cloNIDine 0.1 MG TAB PO SCH ×2 (08:39→20:57)
[2017-03-23] MEDS: VITAMIN D 1,000 INTERNATIONAL UNITS TABLET PO SCH (08:39)
[2017-03-23] MEDS: NALTREXONE 50 MG TAB PO SCH (08:39)
[2017-03-23 11:00] VITALS: BP 141/89
--- NOTE | 2017-03-23 15:28 | MHIPNPDOC ---
[facility] Progress Note Progress Note DATE OF SERVICE: 03/23/17 HISTORY: day 3 of admission for manic episode and alcohol intoxication/ dependence with SI VITAL SIGNS: See below. 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 MENTAL STATUS EXAMINATION: General appearance: Patient is a 36-year old male, who is tall and large framed , full godoy, medium colored hair, good eye contact, hospital attire, cooperative, tattoo on back of neck Speech: spontaneous Thought processes: goal directed. Thought content: appropriate. Abstract reasoning and computation: good. Description of associations: good Description of abnormal or psychotic thoughts: si without plan or intent, no psychotic symptoms illicited. no delusions, FOI or IOR. Pt does admit to paranoia on the job feeling others are judging him. Judgment: fair Insight: limited Orientation: well oriented x 4. Recent and remote memory:intact. Attention span and concentration: good. Fund of knowledge: Full. Mood: "irritable". but improving Affect: congruent DIAGNOSES: 1. bipolar I disorder, current episode manic, without psychotic features, severe. 2. Substance use disorder ASSESSMENT:pt continues to c/o anxiety and did not sleep well last night. will adjust hydroxyzine 75 mg to include insomnia. He cannot tolerate trazodone. Since Seroquel changes sleep architecture will not jump into using it until other options are tried. Can try risperidone at hs or low dose olanzapine at hs. Clonidine has only been started and may help over the next 12 hours with anxiety. Pt may be able to attend [facility] as an outpatient without inpatient treatment. If he is willing to learn to live sober and gets the Vivitrol injection he may do very well without rehab. [facility] is insisting on a [facility] before they will provide an answer. Pt has not been attending groups as he is not feeling well. Will approach him about this tomorrow as he did agree to attend at least one group a day. Hygiene is minimal MANAGEMENT PLAN: will continue to adjust meds for optimal symptom relief. Monitor sleep and anxiety, monitor safety. provide support. TIME SPENT: 15 minutes. Vital Signs Vital Signs Date Time Temp Pulse Resp B/P (MAP) Pulse Ox O2 Delivery O2 Flow Rate FiO2 03/23/17 08:00 77 107/67 03/23/17 07:16 97.0 18 Room Air 03/21/17 14:10 97 Laboratory Data 24H Labs Laboratory Tests 2 03/23/17 06:34: Anion Gap 3L, Glomerular Filtration Rate > 60.0, Blood Urea Nitrogen 8, Creatinine 1.13, Sodium Level 144, Potassium Level 3.7, Chloride Level 110H, Carbon Dioxide Level 31, Calcium Level 8.4L, Aspartate Amino Transf (AST/SGOT) 9L, Alanine Aminotransferase (ALT/SGPT) 20, Alkaline Phosphatase 72, Total Bilirubin 0.3, Total Protein 5.9L, Albumin 3.1L, Albumin/Globulin Ratio 1.11 CBC/BMP Laboratory Tests 03/23/17 06:34 Red Blood Count 4.58, Mean Corpuscular Volume 89.3, Mean Corpuscular Hemoglobin 30.8, Mean Corpuscular Hemoglobin Concent 34.5, Red Cell Distribution Width 13.4 , Calcium Level 8.4 L, Aspartate Amino Transf (AST/SGOT) 9 L, Alanine Aminotransferase (ALT/SGPT) 20, Alkaline Phosphatase 72, Total Bilirubin 0.3, Total Protein 5.9 L, Albumin 3.1 L Current Medications Current Medications Acetaminophen (Tylenol Tab) 650 mg Q6HP PRN PO HEADACHE or DISCOMFORT; Start at 16:15; Stop 04/20/17 at 16:14 Al Hydrox/Mg Hydrox/Simethicone (Mylanta) 30 ml Q4HP PRN PO HEARTBURN/ INDIGESTION; Start 03/21/17 at 16:15; Stop 04/20/17 at 16:14 Aripiprazole (Abilify Maintena) 400 mg Q30D@1800 IM Last administered on 18:17; Start 03/21/17 at 18:00; Stop 04/20/17 at 17:59 Clonidine HCl (Catapres) 0.1 mg BID PO Last administered on 03/23/17 08:39; Start 03/22/17 at 21:00; Stop 04/21/17 at 20:59 Folic Acid (Folic Acid) 1 mg DAILY PO Last administered on 03/23/17 08:38; Start 03/22/17 at 09:00; Stop 04/21/17 at 08:59 Gabapentin (Neurontin) 300 mg TID PO Last administered on 03/23/17 08:38; Start 03/21/17 at 21:00; Stop 04/20/17 at 20:59 Home Med (Med Rec Complete!) ASDIRECTED XX ; Start 03/21/17 at 13:15; Stop at 13:18; Status DC Hydroxyzine HCl (Atarax) 75 mg Q4HP PRN PO ITCHING Last administered on 08:38; Start 03/21/17 at 16:15; Stop 04/20/17 at 16:14 Lorazepam (Ativan) 2 mg ASDIRECTED PRN PO SEE PROTOCOL; Start 03/21/17 at 16:15 ; Stop 03/28/17 at 16:14 Magnesium Hydroxide (Milk Of Magnesia) 30 ml DAILYPRN PRN PO CONSTIPATION; Start 03/21/17 at 16:15; Stop 04/20/17 at 16:14 Mirtazapine (Remeron) 15 mg QHS PO Last administered on 03/22/17 20:31; Start 03/22/17 at 21:00; Stop 04/21/17 at 20:59 Multivitamins (Theragram-M) 1 tab DAILY PO Last administered on 03/23/17 08:38 ; Start 03/22/17 at 09:00; Stop 04/21/17 at 08:59 Naltrexone HCl (Revia) 50 mg DAILY PO Last administered on 03/23/17 08:39; Start 03/22/17 at 09:00; Stop 04/21/17 at 08:59 Pantoprazole Sodium (Protonix) 40 mg DAILY PO Last administered on 03/23/17 08 :39; Start 03/22/17 at 09:00; Stop 04/21/17 at 08:59 Sucralfate (Carafate Suspension) 1 gm ACHS PO Last administered on 03/23/17 06 :35; Start 03/21/17 at 17:30; Stop 04/20/17 at 17:29 Thiamine HCl (Thiamine HCl) 100 mg BID PO Last administered on 03/23/17 08:39 ; Start 03/22/17 at 09:00; Stop 03/24/17 at 09:01 Trazodone HCl (Desyrel) 50 mg QHSP PRN PO INSOMNIA; Start 03/21/17 at 16:15; Stop 04/20/17 at 16:14 Vitamin D (Vitamin D) 2,000 units DAILY PO Last administered on 03/23/17 08:39 ; Start 03/22/17 at 09:00; Stop 04/21/17 at 08:59 Allergies Coded Allergies: Bee Venom (Verified Allergy, Intermediate, swelling, 11/25/16) Soy Allergy (Unverified Allergy, Unknown, diarrhea, 06/08/14) Snehal Maher Mar 23, 2017 15:28
[2017-03-23 16:00] VITALS: BP 147/84
[2017-03-23 18:00] VITALS: BP 147/84
[2017-03-23] MEDS: MIRTAZAPINE 15 MG TAB PO SCH (20:57)
[2017-03-24 06:00] VITALS: BP 132/74
[2017-03-24] MEDS: SUCRALFATE SUSP 1GM/10ML UD PO SCH ×4 (07:07→21:32)
[2017-03-24 08:00] VITALS: BP 132/74
[2017-03-24] MEDS: NALTREXONE 50 MG TAB PO SCH (08:44)
[2017-03-24] MEDS: GABAPENTIN 300 MG CAP PO SCH ×3 (08:44→21:31)
[2017-03-24] MEDS: cloNIDine 0.1 MG TAB PO SCH ×2 (08:44→21:32)
[2017-03-24] MEDS: THIAMINE 100 MG TAB PO SCH (08:44)
[2017-03-24] MEDS: VITAMIN D 1,000 INTERNATIONAL UNITS TABLET PO SCH (08:44)
[2017-03-24] MEDS: FOLIC ACID 1 MG TAB PO SCH (08:44)
[2017-03-24] MEDS: PANTOPRAZOLE 40MG TAB (PROTONIX) PO SCH (08:44)
[2017-03-24] MEDS: MULTIVITAMINS/MINERALS THERAP 1 TAB PO SCH (08:44)
--- NOTE | 2017-03-24 10:48 | MHIPNPDOC ---
[facility] Progress Note Progress Note DATE OF SERVICE: 03/24/17 HISTORY: day 4 of admission for manic episode and alcohol dependence secondary to bipolar I disorder. VITAL SIGNS: See below. NEW TEST RESULTS: an CURRENT MEDICATIONS: See below. MENTAL STATUS EXAMINATION: General appearance: Patient is a 36-year old male, who is tall and large framed , full godoy, medium colored hair, good eye contact, hospital attire cooperative. Speech: spontaneous Thought processes: goal directed. Thought content: appropriate. Abstract reasoning and computation: good. Description of associations: good Description of abnormal or psychotic thoughts: si without plan or intent, no psychotic symptoms illicited. no delusions, FOI or IOR. Pt does admit to paranoia on the job feeling others are judging him. Judgment: poor Insight: limited Orientation: well oriented x 4. Recent and remote memory:intact. Attention span and concentration: good. Fund of knowledge: Full. Mood: " I don't feel well". Affect: congruent DIAGNOSES: 1. bipolar I disorder, current episode manic, without psychotic features, severe. 2. Substance use disorder ASSESSMENT: Pt is reporting some soft stool and stomach discomfort this morning as he is currently day 4 of his detox. He did attend some evening programming yesterday and will attend today if feeling better. Declined attending treatment planning today due to not feeling well. Expresses he does not think inpatient rehab will be of benefit to him. [employer]st [employer] agrees. We have contacted [facility] who will take him back for outpatient treatment and would consider him for group home house placement after he is in contact with them. pt reports feeling like his meds just are not right. he feels impulsive and ready to "pounce" on people. discussed the role of Depakote in mood stabilization. discussed benefits of risk of fatigue and weight gain. will use lowest dose to reach the desired effect. pt states he was on lamictal prior to Maintena and it was not helpful to him. MANAGEMENT PLAN: begin Depakote at 250 mg this evening, continue titration if well tolerated. Draw level next week. Monitor mood and responses to meds. Prepare for discharge toward mid to end of next week. TIME SPENT: 15 minutes. Vital Signs Vital Signs Date Time Temp Pulse Resp B/P (MAP) Pulse Ox O2 Delivery O2 Flow Rate FiO2 03/24/17 08:44 132/74 03/24/17 07:50 Room Air 03/24/17 06:00 98.3 69 16 03/21/17 14:10 97 Current Medications Current Medications Acetaminophen (Tylenol Tab) 650 mg Q6HP PRN PO HEADACHE or DISCOMFORT; Start at 16:15; Stop 04/20/17 at 16:14 Al Hydrox/Mg Hydrox/Simethicone (Mylanta) 30 ml Q4HP PRN PO HEARTBURN/ INDIGESTION; Start 03/21/17 at 16:15; Stop 04/20/17 at 16:14 Aripiprazole (Abilify Maintena) 400 mg Q30D@1800 IM Last administered on 18:17; Start 03/21/17 at 18:00; Stop 04/20/17 at 17:59 Clonidine HCl (Catapres) 0.1 mg BID PO Last administered on 03/24/17 08:44; Start 03/22/17 at 21:00; Stop 04/21/17 at 20:59 Folic Acid (Folic Acid) 1 mg DAILY PO Last administered on 03/24/17 08:44; Start 03/22/17 at 09:00; Stop 04/21/17 at 08:59 Gabapentin (Neurontin) 300 mg TID PO Last administered on 03/24/17 08:44; Start 03/21/17 at 21:00; Stop 04/20/17 at 20:59 Home Med (Med Rec Complete!) ASDIRECTED XX ; Start 03/21/17 at 13:15; Stop at 13:18; Status DC Hydroxyzine HCl (Atarax) 75 mg Q4HP PRN PO ITCHING/insomnia Last administered on 03/23/17 08:38; Start 03/21/17 at 16:15; Stop 04/20/17 at 16:14 Lorazepam (Ativan) 2 mg ASDIRECTED PRN PO SEE PROTOCOL; Start 03/21/17 at 16:15 ; Stop 03/28/17 at 16:14 Magnesium Hydroxide (Milk Of Magnesia) 30 ml DAILYPRN PRN PO CONSTIPATION; Start 03/21/17 at 16:15; Stop 04/20/17 at 16:14 Mirtazapine (Remeron) 15 mg QHS PO Last administered on 03/23/17 20:57; Start 03/22/17 at 21:00; Stop 04/21/17 at 20:59 Multivitamins (Theragram-M) 1 tab DAILY PO Last administered on 03/24/17 08:44 ; Start 03/22/17 at 09:00; Stop 04/21/17 at 08:59 Naltrexone HCl (Revia) 50 mg DAILY PO Last administered on 03/24/17 08:44; Start 03/22/17 at 09:00; Stop 04/21/17 at 08:59 Pantoprazole Sodium (Protonix) 40 mg DAILY PO Last administered on 03/24/17 08 :44; Start 03/22/17 at 09:00; Stop 04/21/17 at 08:59 Sucralfate (Carafate Suspension) 1 gm ACHS PO Last administered on 03/24/17 07 :07; Start 03/21/17 at 17:30; Stop 04/20/17 at 17:29 Thiamine HCl (Thiamine HCl) 100 mg BID PO Last administered on 03/24/17 08:44 ; Start 03/22/17 at 09:00; Stop 03/24/17 at 09:01; Status DC Trazodone HCl (Desyrel) 50 mg QHSP PRN PO INSOMNIA; Start 03/21/17 at 16:15; Stop 04/20/17 at 16:14; Status Cancel Vitamin D (Vitamin D) 2,000 units DAILY PO Last administered on 03/24/17 08:44 ; Start 03/22/17 at 09:00; Stop 04/21/17 at 08:59 Allergies Coded Allergies: Bee Venom (Verified Allergy, Intermediate, swelling, 11/25/16) Soy Allergy (Unverified Allergy, Unknown, diarrhea, 06/08/14) Snehal Maher Mar 24, 2017 10:48
[2017-03-24 18:00] VITALS: BP 133/78
[2017-03-24 19:09] VITALS: BP 133/78
[2017-03-24] MEDS ORDERED: DIVALPROEX 250 MG TAB PO SCH (21:00)
[2017-03-24] MEDS: MIRTAZAPINE 15 MG TAB PO SCH (21:32)
[2017-03-25 06:00] VITALS: BP 111/61
[2017-03-25] MEDS: SUCRALFATE SUSP 1GM/10ML UD PO SCH ×4 (06:36→21:08)
[2017-03-25 08:00] VITALS: BP 111/61
[2017-03-25] MEDS: FOLIC ACID 1 MG TAB PO SCH (08:21)
[2017-03-25] MEDS: PANTOPRAZOLE 40MG TAB (PROTONIX) PO SCH (08:21)
[2017-03-25] MEDS: MULTIVITAMINS/MINERALS THERAP 1 TAB PO SCH (08:22)
[2017-03-25] MEDS: NALTREXONE 50 MG TAB PO SCH (08:22)
[2017-03-25] MEDS: GABAPENTIN 300 MG CAP PO SCH ×3 (08:22→21:08)
[2017-03-25] MEDS: VITAMIN D 1,000 INTERNATIONAL UNITS TABLET PO SCH (08:22)
[2017-03-25] MEDS: cloNIDine 0.1 MG TAB PO SCH ×2 (08:24→21:10)
--- NOTE | 2017-03-25 14:43 | MHIPNPDOC ---
[facility] Progress Note Progress Note DATE OF SERVICE: 03/25/17 HISTORY: day 4 of admission for Bipolar disorder and substance use disorder VITAL SIGNS: See below. NEW TEST RESULTS: na CURRENT MEDICATIONS: See below. MENTAL STATUS EXAMINATION: General appearance: Patient is a 36-year old male, who is tall and large framed , full godoy, medium colored hair, good eye contact, hospital attire cooperative. Speech: spontaneous Thought processes: goal directed. Thought content: appropriate. Abstract reasoning and computation: good. Description of associations: good Description of abnormal or psychotic thoughts: si without plan or intent, no psychotic symptoms illicited. no delusions, FOI or IOR. Pt does admit to paranoia on the job feeling others are judging him. Judgment: poor Insight: limited Orientation: well oriented x 4. Recent and remote memory:intact. Attention span and concentration: good. Fund of knowledge: Full. Mood: " doing better". Affect: congruent DIAGNOSES: 1. bipolar I disorder, current episode manic, without psychotic features, severe. 2. Substance use disorder ASSESSMENT:Emre is feeling a little better today, stomach is still bothersome and affects his appetite negatively. Enc to try to eat a little protein at every meal and to keep fluid intake up. pt is sleeping better and anxiety is getting slightly better. pt is reading about the affects of Alcohol on his bipolar illness and is motivated to learn more. He has a court date on Tuesday for child support but since he let early last time from the hospital he is not inclined to request discharge and leave early again. he has asked his mother to notify the Court that he is currently being treated for his mental illness. He would like to remain to get his medications sorted out. So far Emre is tolerating Depakote which will be increased to 500 mg. Some group attendance but mostly keeps to self. Hygiene adequate. MANAGEMENT PLAN: continue Depakote titration, discuss discharge next week, will need Depakote level. complete referral to [facility]. Discussed hazards of drinking Alcohol while taking Revia. TIME SPENT: 15 minutes. Vital Signs Vital Signs Date Time Temp Pulse Resp B/P (MAP) Pulse Ox O2 Delivery O2 Flow Rate FiO2 03/25/17 08:24 124/81 03/25/17 06:00 98.5 78 16 03/24/17 07:50 Room Air 9/25/17 14:10 97 Current Medications Current Medications Acetaminophen (Tylenol Tab) 650 mg Q6HP PRN PO HEADACHE or DISCOMFORT; Start at 16:15; Stop 04/20/17 at 16:14 Al Hydrox/Mg Hydrox/Simethicone (Mylanta) 30 ml Q4HP PRN PO HEARTBURN/ INDIGESTION; Start 03/21/17 at 16:15; Stop 04/20/17 at 16:14 Aripiprazole (Abilifmedina Maintena) 400 mg Q30D@1800 IM Last administered on 18:17; Start 03/21/17 at 18:00; Stop 04/20/17 at 17:59 Clonidine HCl (Catapres) 0.1 mg BID PO Last administered on 03/25/17 08:24; Start 03/22/17 at 21:00; Stop 04/21/17 at 20:59 Divalproex Sodium (Depakote) 250 mg QHS PO Last administered on 03/24/17 21:31 ; Start 03/24/17 at 21:00; Stop 04/23/17 at 20:59 Folic Acid (Folic Acid) 1 mg DAILY PO Last administered on 03/25/17 08:21; Start 03/22/17 at 09:00; Stop 04/21/17 at 08:59 Gabapentin (Neurontin) 300 mg TID PO Last administered on 03/25/17 08:22; Start 03/21/17 at 21:00; Stop 04/20/17 at 20:59 Home Med (Med Rec Complete!) ASDIRECTED XX ; Start 03/21/17 at 13:15; Stop at 13:18; Status DC Hydroxyzine HCl (Atarax) 75 mg Q4HP PRN PO ITCHING/insomnia Last administered on 03/23/17 08:38; Start 03/21/17 at 16:15; Stop 04/20/17 at 16:14 Lorazepam (Ativan) 2 mg ASDIRECTED PRN PO SEE PROTOCOL; Start 03/21/17 at 16:15 ; Stop 03/28/17 at 16:14 Magnesium Hydroxide (Milk Of Magnesia) 30 ml DAILYPRN PRN PO CONSTIPATION; Start 03/21/17 at 16:15; Stop 04/20/17 at 16:14 Mirtazapine (Remeron) 15 mg QHS PO Last administered on 03/24/17 21:32; Start 03/22/17 at 21:00; Stop 04/21/17 at 20:59 Multivitamins (Theragram-M) 1 tab DAILY PO Last administered on 03/25/17 08:22 ; Start 03/22/17 at 09:00; Stop 04/21/17 at 08:59 Naltrexone HCl (Revia) 50 mg DAILY PO Last administered on 03/25/17 08:22; Start 03/22/17 at 09:00; Stop 04/21/17 at 08:59 Pantoprazole Sodium (Protonix) 40 mg DAILY PO Last administered on 03/25/17 08 :21; Start 03/22/17 at 09:00; Stop 04/21/17 at 08:59 Sucralfate (Carafate Suspension) 1 gm ACHS PO Last administered on 03/25/17 06 :36; Start 03/21/17 at 17:30; Stop 04/20/17 at 17:29 Thiamine HCl (Thiamine HCl) 100 mg BID PO Last administered on 03/24/17 08:44 ; Start 03/22/17 at 09:00; Stop 03/24/17 at 09:01; Status DC Trazodone HCl (Desyrel) 50 mg QHSP PRN PO INSOMNIA; Start 03/21/17 at 16:15; Stop 04/20/17 at 16:14; Status Cancel Vitamin D (Vitamin D) 2,000 units DAILY PO Last administered on 03/25/17 08:22 ; Start 03/22/17 at 09:00; Stop 04/21/17 at 08:59 Allergies Coded Allergies: Bee Venom (Verified Allergy, Intermediate, swelling, 11/25/16) Soy Allergy (Unverified Allergy, Unknown, diarrhea, 06/08/14) Snehal Maher Mar 25, 2017 14:43
[2017-03-25 18:41] VITALS: BP 105/51
[2017-03-25] MEDS: DIVALPROEX 250 MG TAB PO SCH (21:08)
[2017-03-25] MEDS: MIRTAZAPINE 15 MG TAB PO SCH (21:08)
[2017-03-25 21:30] VITALS: BP 140/84
[2017-03-26 06:39] VITALS: BP 132/68
[2017-03-26] MEDS: SUCRALFATE SUSP 1GM/10ML UD PO SCH ×4 (06:47→21:52)
[2017-03-26] MEDS: MULTIVITAMINS/MINERALS THERAP 1 TAB PO SCH (08:05)
[2017-03-26] MEDS: NALTREXONE 50 MG TAB PO SCH (08:05)
[2017-03-26] MEDS: PANTOPRAZOLE 40MG TAB (PROTONIX) PO SCH (08:05)
[2017-03-26] MEDS: FOLIC ACID 1 MG TAB PO SCH (08:05)
[2017-03-26] MEDS: GABAPENTIN 300 MG CAP PO SCH ×3 (08:05→21:52)
[2017-03-26] MEDS: cloNIDine 0.1 MG TAB PO SCH ×2 (08:06→21:54)
[2017-03-26] MEDS: VITAMIN D 1,000 INTERNATIONAL UNITS TABLET PO SCH (08:06)
[2017-03-26 11:41] VITALS: BP 106/58
[2017-03-26 18:00] VITALS: BP 108/57
[2017-03-26 21:00] VITALS: BP 116/67
[2017-03-26 21:15] VITALS: BP 107/56
[2017-03-26] MEDS: DIVALPROEX 250 MG TAB PO SCH (21:52)
[2017-03-26] MEDS: hydrOXYzine 25 MG TAB PO PRN (21:54)
[2017-03-26] MEDS: MIRTAZAPINE 15 MG TAB PO SCH (21:55)
[2017-03-27 06:00] VITALS: BP 117/55
[2017-03-27] MEDS: SUCRALFATE SUSP 1GM/10ML UD PO SCH ×4 (06:41→21:35)
[2017-03-27] MEDS: MULTIVITAMINS/MINERALS THERAP 1 TAB PO SCH (08:00)
[2017-03-27] MEDS: VITAMIN D 1,000 INTERNATIONAL UNITS TABLET PO SCH (08:00)
[2017-03-27] MEDS: GABAPENTIN 300 MG CAP PO SCH ×3 (08:00→21:35)
[2017-03-27] MEDS: NALTREXONE 50 MG TAB PO SCH (08:00)
[2017-03-27] MEDS: PANTOPRAZOLE 40MG TAB (PROTONIX) PO SCH (08:00)
[2017-03-27] MEDS: FOLIC ACID 1 MG TAB PO SCH (08:00)
[2017-03-27] MEDS: cloNIDine 0.1 MG TAB PO SCH ×2 (08:00→21:35)
[2017-03-27 09:35] VITALS: BP 117/55
[2017-03-27 18:00] VITALS: BP 120/55
[2017-03-27] MEDS ORDERED: DIVALPROEX 250 MG TAB PO SCH (21:00)
[2017-03-27] MEDS: MIRTAZAPINE 15 MG TAB PO SCH (21:34)
[2017-03-28 06:34] VITALS: BP 138/69
[2017-03-28] MEDS: SUCRALFATE SUSP 1GM/10ML UD PO SCH ×2 (07:20→11:47)
[2017-03-28] MEDS ORDERED: CLONI1TA PO (09:17)
[2017-03-28] MEDS ORDERED: MIRT15TA3 PO (09:17)
[2017-03-28] MEDS ORDERED: DEPA250T32 PO (09:17)
[2017-03-28] MEDS: GABAPENTIN 300 MG CAP PO SCH (09:24)
[2017-03-28] MEDS: FOLIC ACID 1 MG TAB PO SCH (09:24)
[2017-03-28] MEDS: MULTIVITAMINS/MINERALS THERAP 1 TAB PO SCH (09:24)
[2017-03-28] MEDS: PANTOPRAZOLE 40MG TAB (PROTONIX) PO SCH (09:24)
[2017-03-28 09:25] VITALS: BP 120/76
[2017-03-28] MEDS: NALTREXONE 50 MG TAB PO SCH (09:25)
[2017-03-28] MEDS: VITAMIN D 1,000 INTERNATIONAL UNITS TABLET PO SCH (09:25)
[2017-03-28] MEDS: cloNIDine 0.1 MG TAB PO SCH (09:25)
--- NOTE | 2017-03-28 09:26 | MHDSPDOC ---
[facility] Discharge Summary Discharge Summary DATE OF ADMISSION: Mar 21, 2017 at 12:47 DATE OF DISCHARGE: March 28, 2017 DISCHARGE DIAGNOSES: 1. bipolar I disorder, current episode manic, without psychotic features, severe. 2. Substance use disorder REASON FOR ADMISSION: drinking lots of alcohol, felt he left too early on previous admission a few months ago. now demanding to be discharged sooner than provider would like. Very angry and argumentative. Discharge plans not fully implemented but will permit him to leave to avoid more conflict. CONSULTANTS INVOLVED: na TREATMENT AND PROGRESS ON THE UNIT : routine. had some symptoms of withdrawal but not too badly. Kept to self. Interested in treatment and making future plans one day and the next he was angry and would only listen to what he wanted not what was needed. HOSPITAL COURSE: attend few groups, laid in bed most of the time. Avoided interactions with peers. Took medications as ordered and had some days that were challenging with the withdrawal process. Could have been more involved in recovery efforts than he demonstrated. Demonstrated lots of mood variations and would benefit from additional inpatient days to regulate Depakote. Will have to be done as an outpatient now. DISCHARGE ASSESSMENT: pt insisted on discharge before treatment was completed. He became nasty and hostile so rather than trying to reason with him he was processed for discharged after lab drawn for Valproic acid level. Pt will need to follow up with [facility]. His referral will be sent in today. He will need an appt at [facility] for his Abilify Maintena injections on 04/20/17. That is all we could plan on such short notice. He can work with [facility] on a change of housing if they find him suitable for their detention house which is what he is interested in. Pt may benefit more from Vivitrol Injection than po Naltrexone as he continues to drink routinely and large amounts of beer on po Naltrexone. Pt showed some interest prior to this weekend in understand the addiction process and its affect on bipolar management. No insight demonstrated at time of discharge. Pt denied need to leave for court date set for today when it was discussed on Tuesday. Now insisting he must attend. However, labs won't be close to accurate if linda this am. Prognosis is poor. MENTAL STATUS EXAMINATION ON DISCHARGE: General appearance: Patient is a 36-year old male, who is tall and large framed , full godoy, medium colored hair, good eye contact, hospital attire cooperative. Speech: spontaneous Thought processes: goal directed. Thought content: appropriate. Abstract reasoning and computation: good. Description of associations: good Description of abnormal or psychotic thoughts: si without plan or intent, no psychotic symptoms illicited. no delusions, FOI or IOR. Pt does admit to paranoia on the job feeling others are judging him. Judgment: poor Insight: limited Orientation: well oriented x 4. Recent and remote memory:intact. Attention span and concentration: good. Fund of knowledge: Full. Mood: angry Affect: congruent MEDICATIONS ON DISCHARGE: - mirtazapine for insomnia -depakote for impulse control/mood regulation - clonidine for anxiety PLAN/FOLLOWUP ARRANGEMENTS: [facility] The amount of time spent in the coordination of care for this patient was approximately 30 minutes. Vital Signs/I&Os Vital Signs Date Time Temp Pulse Resp B/P (MAP) Pulse Ox O2 Delivery O2 Flow Rate FiO2 03/28/17 06:34 97.7 53 16 138/69 (92) 03/27/17 09:26 Room Air Medications Scheduled Aripiprazole Monohydrate (Abilify Maintena) 400 Mg Inj, 400 MG IM QMONTH, ( Reported) Clonidine Hcl (Catapres) 0.1 Mg Tab, 0.1 MG PO BID for ANXIETY for 7 Days, #14 Divalproex Sodium (Depakote) 250 Mg Tab, 750 MG PO QHS for impulse control for 7 Days, #21 take 3 tabs at bedtime Mirtazapine (Mirtazapine) 15 Mg Tab, 15 MG PO QHS for INSOMNIA for 7 Days, #7 Naltrexone HCl (Naltrexone HCl) 50 Mg Tab, 50 MG PO DAILY, (Reported) Pantoprazole Sodium (Pantoprazole Sodium) 40 Mg Tab, 40 MG PO DAILY, (Reported) Sucralfate (Carafate) 1 Gm/10 Ml Cynthia, 10 ML PO ACHS, (Reported) Scheduled PRN Gabapentin (Gabapentin) 300 Mg Cap, 300 MG PO TID PRN for PAIN, (Reported) Allergies Coded Allergies: Bee Venom (Verified Allergy, Intermediate, swelling, 11/25/16) Soy Allergy (Unverified Allergy, Unknown, diarrhea, 06/08/14) Snehal Maher Mar 28, 2017 09:26
[2017-04-11] MEDS ORDERED: MIRT15TA3 PO (14:25)
[2017-04-11] MEDS ORDERED: CLON-412 PO (14:25)
[2017-04-21] MEDS ORDERED: DEPA250T32 PO (13:34)
[2017-04-21] MEDS ORDERED: RISP1TAB3 PO (13:37)
== END 2017-03-28 13:40 | disposition home or self-care (01) | DRG 753 ==
LOC: M ED 18:53 → M PSY 03-21 12:47 → M ED 03-21 13:07
PROVIDERS: ADMIT Psychiatry & Neurology Child & Adolescent Psychiatry; ATTEND Psychiatry & Neurology Psychiatry
DX: F31.13 Bipolar disorder, current episode manic without psychotic features, severe (principal); E87.0 Hyperosmolality and hypernatremia; E55.9 Vitamin D deficiency, unspecified; F19.90 Other psychoactive substance use, unspecified, uncomplicated; K21.9 Gastro-esophageal reflux disease without esophagitis; E87.6 Hypokalemia; E66.9 Obesity, unspecified; Z68.35 Body mass index [BMI] 35.0-35.9, adult; Z79.899 Other long term (current) drug therapy; Z91.030 Bee allergy status; Z91.018 Allergy to other foods

== ENCOUNTER 2019-02-11 08:37 | Emergency (ER) | payer MEDICAID, OTHER ==
[~2019-02-11] VITALS: Ht 177.8 cm; Wt 104.5 kg
[~2019-02-11 08:37] MED LIST changes: -ARIP10TAB PO; +ARIP1TAB PO; +ARIP1TAB6 PO; -ARIP5TA PO; +CLON-412 PO; +CLONI1TA PO; +DEPA250T32 PO; -GABA-282 PO; +GABA-843 PO; +MIRT15TA3 PO; +PANT40TA3 PO; +RISP1TAB3 PO; +TRAZ-252 PO; -TRAZ50TA11 PO
[2019-02-11] MEDS ORDERED: OXYC-517 PO (09:00)
[2019-02-11] MEDS ORDERED: SOMA350T PO (09:00)
[2019-02-11] MEDS ORDERED: NS 1,000 ML IV ONE (09:00)
[2019-02-11] MEDS ORDERED: GABA-845 PO (09:00)
[2019-02-11] MEDS ORDERED: ONDANSETRON 4MG/2ML VIAL (J2405) IV ONE (09:30)
[2019-02-11] MEDS ORDERED: MORPHINE 4 MG/ML 1ML VIAL/SYRINGE (J2270) IV ONE (09:30)
[2019-02-11 09:33] LABS: BASO # 0.1 10^3/uL (0.0-0.2); BASO % 0.8 % (0.0-1.0); EOS # 0.2 10^3/uL (0.0-0.50); EOS % 2.1 % (0.0-3.0); HEMATOCRIT 29.1 % (42.0-52.0); LYMPH # 1.4 10^3/uL (1.5-4.5); LYMPH % 19.2 % (24.0-44.0); MEAN CORPUSCULAR HEMOGLOBIN 30.8 pg (27.0-33.0); MEAN CORPUSCULAR HGB CONC 34.4 g/dl (32.0-36.5); MEAN CORPUSCULAR VOLUME 89.5 fl (80.0-96.0); MONO # 0.6 10^3/uL (0.0-0.8); MONO % 8.5 % (0.0-5.0); NEUTROPHILS # 4.9 10^3/uL (1.8-7.7); NEUTROPHILS % 68.8 % (36.0-66.0); PLATELET COUNT, AUTOMATED 331 10^3/uL (150-450); RED BLOOD COUNT 3.25 10^6/uL (4.30-6.10); WHITE BLOOD COUNT 7.1 10^3/uL (4.0-10.0)
[2019-02-11 09:52] LABS: ERYTHROCYTE SEDIMENTATION RATE 23 mm/hr (0-15)
[2019-02-11 09:53] LABS: ALBUMIN 3.2 GM/DL (3.2-5.2); ALT/SGPT 33 U/L (12-78); BILIRUBIN,DIRECT < 0.1 MG/DL (0.0-0.2); BILIRUBIN,TOTAL 0.2 MG/DL (0.2-1.0); C REACTIVE PROTEIN QUANTITATIV 1.27 MG/DL (0.00-0.30); TOTAL PROTEIN 6.2 GM/DL (6.4-8.2)
[2019-02-11] MEDS ORDERED: HYDROMORPHONE HCL 0.5 MG/ 0.5 ML SYRINGE (J1170 PER 1) IV ONE (10:15)
[2019-02-11 11:49] VITALS: BP 138/70
--- NOTE | 2019-02-11 14:38 | REP ---
CT THORACIC SPINE WITHOUT CONTRAST: 02/11/2019. Clinical history: Discharged from [facility] 3 days ago after posterior spinal fusion from T4-T6. New neurologic symptoms today. Technique: Noncontrast axial soft-tissue and bone windows through the thoracic spine from C7 through L one vertebral bodies and with coronal and sagittal reconstructions. Axial reconstructions with orthopedic metal artifact reduction algorithm. Findings: Sagittal reconstructions do show pedicle screws and arch bars from the T4 through the T6 vertebral bodies. There is a thoracic kyphosis induced by lower thoracic spine. Marginal osteophytes and degenerative disc disease. Alignment of the before through T6 vertebral bodies in relationship to each other and in relationship to the T3 vertebral body above and T7 vertebral body below is normal. Along the paraspinal region at the surgical site. There is a small amount of subpleural soft tissue density could be likely immediate postop change. There is no collapse of the vertebral bodies or destructive lesion. The neural canal above is ample. From C7-T1 through T3-4 the foramina appear adequate. Central canal and foramina are poorly visualized due to extensive beam hardening artifact at the surgical levels. The metal artifact reduction images show no gross bony abnormality at surgical level. From V6-7 through T 08/09. There is no central canal stenosis. Some posterior osteophytic ridging right paracentral at T 09/10. The cross-sectional area of the canal adequate at T10-11 there is no central canal stenosis. At T11-12 there is posterior phytic ridging and some facet hypertrophic change with the central canal AP diameter adequate at 13 mm. Marginal osteophytes may contribute to some mild foraminal encroachment on the right. At T12-L1 there is no spinal or foraminal stenosis. Impression: 1. Status post T4-T6 posterior thoracic fusion with pedicle screws and arch bars. Vertebral heights and alignment are maintained. There is no subluxation, hardware failure, compression fracture. 2. Thoracic kyphosis noted and felt related to lower thoracic degenerative disc disease. No acute compression deformities in the spine. 3. Some spondylosis lower thoracic levels without central canal stenosis. Foramina grossly adequate with a questionable mild narrowing on the right at T11-12. No acute finding by CT. Electronically Signed by Ward Traylor MD 02/11/2019 08:37 P
== END 2019-02-11 11:52 | disposition short-term general hospital (02) ==
LOC: M ED 08:37
DX: M54.5 Low back pain (principal); R20.2 Paresthesia of skin; R79.89 Other specified abnormal findings of blood chemistry; Z98.1 Arthrodesis status; Z79.899 Other long term (current) drug therapy
CPT/HCPCS: 72128; 80047; 80076; 85025; 85652; 86140; 87040; 96374; 96375; 99285; J1170; J2270; J2405

== ENCOUNTER 2019-03-18 02:21 | Emergency (ER) | payer MEDICAID ==
[~2019-03-18] VITALS: Ht 175.3 cm; Wt 113.6 kg
[~2019-03-18 02:21] MED LIST changes: +GABA-845 PO; +OXYC-517 PO; +SOMA350T PO
[2019-03-18 03:46] LABS: HEMATOCRIT 34.4 % (42.0-52.0); HEMOGLOBIN 11.1 g/dl (13.5-17.5); MEAN CORPUSCULAR HEMOGLOBIN 27.9 pg (27.0-33.0); MEAN CORPUSCULAR HGB CONC 32.3 g/dl (32.0-36.5); MEAN CORPUSCULAR VOLUME 86.4 fl (80.0-96.0); PLATELET COUNT, AUTOMATED 402 10^3/uL (150-450); RED BLOOD COUNT 3.98 10^6/uL (4.30-6.10); WHITE BLOOD COUNT 9.4 10^3/uL (4.0-10.0)
[2019-03-18 04:21] LABS: ACETAMINOPHEN LEVEL < 2.0 UG/ML (10.0-30.0); ALT/SGPT 27 U/L (12-78); BILIRUBIN,DIRECT 0.1 MG/DL (0.0-0.2); BILIRUBIN,TOTAL 0.4 MG/DL (0.2-1.0); BLOOD UREA NITROGEN 17 MG/DL (7-18); CALCIUM LEVEL 8.4 MG/DL (8.5-10.1); CARBON DIOXIDE LEVEL 25 MEQ/L (21-32); CHLORIDE LEVEL 111 MEQ/L (98-107); CREATININE FOR GFR 1.07 MG/DL (0.70-1.30); ETHYL ALCOHOL (ETHANOL) < 0.003 % (0.000-0.010); GLOMERULAR FILTRATION RATE > 60.0 (>60); GLUCOSE, FASTING 110 MG/DL (70-100); SALICYLATE LEVEL < 1.7 MG/DL (5.0-30.0); SODIUM LEVEL 145 MEQ/L (136-145); TOTAL PROTEIN 7.5 GM/DL (6.4-8.2)
[2019-03-18 04:47] LABS: AMPHETAMINES LEVEL URINE NEGATIVE (NEGATIVE); BARBITURATES URINE NEGATIVE (NEGATIVE); BENZODIAZEPINES URINE NEGATIVE (NEGATIVE); CANNABINOIDS URINE POSITIVE (NEGATIVE); COCAINE METABOLITE URINE POSITIVE (NEGATIVE); METHADONE URINE NEGATIVE (NEGATIVE); OPIATES URINE NEGATIVE (NEGATIVE); PHENCYCLIDINE URINE NEGATIVE (NEGATIVE)
[2019-03-18] MEDS ORDERED: REME15TA PO (10:33)
[2019-03-18] MEDS ORDERED: DEPA250T32 PO (10:33)
[2019-03-18 12:41] VITALS: BP 131/69
--- NOTE | 2019-03-18 13:32 | ECGEPIP ---
[facility] - ED Test Date: 2019-03-18 Pat Name: ZEUS PINEDA Department: Room: - Gender: Male Maitre D: : 1980 Requested By: EDWARD Howe Order Number: [id number] Reading MD: Emma Lombardi Measurements Intervals [place] Rate: 89 P: -1 SD: 160 QRS: 3 QRSD: 86 T: -5 QT: 372 QTc: 454 Interpretive Statements SINUS RHYTHM NONSPECIFIC T-WAVE ABNORMALITY INCREASED RATE 04/12/17 Electronically Signed on 03-18-2019 13:32:43 EDT by Emma Lombardi
== END 2019-03-18 12:45 ==
LOC: M ED 02:21
DX: R45.851 Suicidal ideations (principal); F33.9 Major depressive disorder, recurrent, unspecified; Z91.030 Bee allergy status; Z79.899 Other long term (current) drug therapy
CPT/HCPCS: 36415; 80048; 80076; 80307; 84443; 85027; 93005; 99284; G0480

== ENCOUNTER 2019-04-12 12:18 | Inpatient (IN) | payer MEDICAID, OTHER ==
[~2019-04-12] VITALS: Ht 175.3 cm; Wt 119.9 kg
[~2019-04-12 12:18] MED LIST changes: +REME15TA PO
[2019-04-12] MEDS ORDERED: OXCA300T14 PO (12:30)
[2019-04-12] MEDS ORDERED: ZYPR10TA PO (12:30)
[2019-04-12] MEDS ORDERED: MIRT1TAB16 PO (12:30)
[2019-04-12 13:03] LABS: HEMATOCRIT 34.8 % (42.0-52.0); HEMOGLOBIN 11.2 g/dl (13.5-17.5); MEAN CORPUSCULAR HEMOGLOBIN 26.8 pg (27.0-33.0); MEAN CORPUSCULAR HGB CONC 32.2 g/dl (32.0-36.5); MEAN CORPUSCULAR VOLUME 83.3 fl (80.0-96.0); PLATELET COUNT, AUTOMATED 322 10^3/uL (150-450); RED BLOOD COUNT 4.18 10^6/uL (4.30-6.10); WHITE BLOOD COUNT 5.9 10^3/uL (4.0-10.0)
[2019-04-12 13:50] LABS: ACETAMINOPHEN LEVEL < 2.0 UG/ML (10.0-30.0); ALBUMIN 3.4 GM/DL (3.2-5.2); ALT/SGPT 31 U/L (12-78); BILIRUBIN,DIRECT < 0.1 MG/DL (0.0-0.2); BILIRUBIN,TOTAL 0.2 MG/DL (0.2-1.0); BLOOD UREA NITROGEN 12 MG/DL (7-18); CALCIUM LEVEL 8.4 MG/DL (8.5-10.1); CARBON DIOXIDE LEVEL 26 MEQ/L (21-32); CHLORIDE LEVEL 112 MEQ/L (98-107); CREATININE FOR GFR 0.97 MG/DL (0.70-1.30); ETHYL ALCOHOL (ETHANOL) < 0.003 % (0.000-0.010); GLOMERULAR FILTRATION RATE > 60.0 (>60); GLUCOSE, FASTING 137 MG/DL (70-100); POTASSIUM SERUM 3.5 MEQ/L (3.5-5.1); SALICYLATE LEVEL < 1.7 MG/DL (5.0-30.0); SODIUM LEVEL 142 MEQ/L (136-145); TOTAL PROTEIN 6.5 GM/DL (6.4-8.2)
[2019-04-12 14:58] LABS: AMPHETAMINES LEVEL URINE NEGATIVE (NEGATIVE); BARBITURATES URINE NEGATIVE (NEGATIVE); BENZODIAZEPINES URINE NEGATIVE (NEGATIVE); CANNABINOIDS URINE NEGATIVE (NEGATIVE); COCAINE METABOLITE URINE NEGATIVE (NEGATIVE); METHADONE URINE NEGATIVE (NEGATIVE); OPIATES URINE NEGATIVE (NEGATIVE); PHENCYCLIDINE URINE NEGATIVE (NEGATIVE)
[2019-04-12] MEDS ORDERED: ALEV220T22 PO (15:37)
[2019-04-12] MEDS ORDERED: CHOL100029 PO (15:37)
[2019-04-12] MEDS ORDERED: traZODone 50 MG TAB PO PRN (17:45)
[2019-04-12] MEDS ORDERED: MAALOX 30 ML SUSP *UDC PO PRN (17:45)
[2019-04-12] MEDS ORDERED: MOM 30ML SUSPENSION UDC PO PRN (17:45)
[2019-04-12 18:45] VITALS: BP 122/86
[2019-04-12] MEDS: ACETAMINOPHEN TAB 650MG DOSE (2X325MG) PO PRN (20:59)
[2019-04-12] MEDS: OLANZapine 10 MG TAB PO SCH (21:00)
[2019-04-12] MEDS: MIRTAZAPINE 15 MG TAB PO SCH (21:00)
[2019-04-12] MEDS: OXcarbazepine 300 MG TAB PO SCH (21:00)
[2019-04-12] MEDS: VITAMIN D 1,000 INTERNATIONAL UNITS TABLET PO SCH (21:00)
[2019-04-13 06:07] VITALS: BP 125/80
[2019-04-13] MEDS: NAPROXEN 250 MG TAB PO PRN (09:38)
[2019-04-13] MEDS: OXcarbazepine 300 MG TAB PO SCH ×2 (09:38→21:17)
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
[2019-04-13] MEDS: ACETAMINOPHEN TAB 650MG DOSE (2X325MG) PO PRN (12:11)
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
[2019-04-13] MEDS ORDERED: POTASSIUM CHLORIDE 10 MEQ SR TABLET PO ONE (14:00)
[2019-04-13 16:37] VITALS: BP 107/58
[2019-04-13] MEDS: VITAMIN D 1,000 INTERNATIONAL UNITS TABLET PO SCH (21:17)
[2019-04-13] MEDS: OLANZapine 10 MG TAB PO SCH (21:17)
[2019-04-13] MEDS: MIRTAZAPINE 15 MG TAB PO SCH (21:17)
[2019-04-14 06:45] VITALS: BP 103/60
[2019-04-14] MEDS: OXcarbazepine 300 MG TAB PO SCH ×2 (08:14→20:42)
[2019-04-14] MEDS: NAPROXEN 250 MG TAB PO PRN ×2 (08:14→20:43)
[2019-04-14 16:24] VITALS: BP 120/60
--- NOTE | 2019-04-14 18:08 | MHIPN ---
DATE: 04/14/2019 CHIEF COMPLAINT: Says is feeling okay. SUBJECTIVE: Seen for followup. Valeria feels okay but has back pain. He is seen in the presence of staff. Says mood is a bit better. Valeria was frustrated, having been referred to outpatient in [place] when he lived over here. This is when he was discharged from [facility] recently. Says has been without alcohol for about a month and a half or so, possibly a little longer. Has had period, he says, when he has had an elated mood, decrease in sleep, excessive energy, when not drinking alcohol. Says the longest it has lasted is about a week or so. MENTAL STATUS EXAMINATION: Neat, cooperative. Mild discomfort when he first sat down but more relaxed later. He displays no agitation. No psychomotor retardation. He is coherent. Affect restricted but fair range. Denies any thoughts of harming himself or anyone else at present. Currently no evidence of any psychosis. Cognition grossly intact. Judgment and insight fair. ASSESSMENT: 1. Major depressive disorder, recurrent, severe. 2. Alcohol use disorder. 3. Consider bipolar disorder. PLAN: Continue current care, observations, and his current medication regimen. Encourage participation in activities in the unit. VITAL SIGNS: Blood pressure 120/60, pulse 81, temperature 97.9.
[2019-04-14] MEDS: OLANZapine 10 MG TAB PO SCH (20:42)
[2019-04-14] MEDS: MIRTAZAPINE 15 MG TAB PO SCH (20:42)
[2019-04-14] MEDS: VITAMIN D 1,000 INTERNATIONAL UNITS TABLET PO SCH (20:42)
[2019-04-15 06:30] VITALS: BP 110/53
[2019-04-15] MEDS: OXcarbazepine 300 MG TAB PO SCH ×2 (09:29→20:43)
[2019-04-15] MEDS: NAPROXEN 250 MG TAB PO PRN (09:29)
[2019-04-15] MEDS: ACETAMINOPHEN TAB 650MG DOSE (2X325MG) PO PRN (15:39)
[2019-04-15 16:32] VITALS: BP 108/58
--- NOTE | 2019-04-15 16:57 | MHIPN ---
DATE OF SERVICE: 04/15/2019 VITAL SIGNS: Blood pressure 110/53, pulse 88, temperature 97. CHIEF COMPLAINT: Says has back pain. SUBJECTIVE: Is seen for followup in the presence of staff. Says has back pain that has been bothering him and that at times it prevents him from maintaining sleep. He feels that he has been doing better emotionally, however. Says is less anxious and less depressed. MENTAL STATUS EXAMINATION: He is lying in bed. Mild discomfort. Coopetive. He is coherent. Affect is fairly broad. Denies any thoughts of harming himself or anyone else. No evidence of psychosis. Cognition is grossly intact. Judgment and insight fair. ASSESSMENT: 1. Major depressive disorder, recurrent, severe. 2. Alcohol use disorder. 3. Consider bipolar disorder. 4. Back pain. PLAN: Continue current care and observations. He is to continue with olanzapine and oxcarbazepine and mirtazapine at current doses. Says has an appointment to see his orthopedic surgeon in the near future and would want to look at ways of addressing the back pain. He will see the treatment team, as well as the psychiatrist tomorrow, and further recommendations will be made.
[2019-04-15] MEDS: MIRTAZAPINE 15 MG TAB PO SCH (20:43)
[2019-04-15] MEDS: OLANZapine 10 MG TAB PO SCH (20:43)
[2019-04-15] MEDS: VITAMIN D 1,000 INTERNATIONAL UNITS TABLET PO SCH (20:43)
[2019-04-16 06:35] VITALS: BP 107/62
[2019-04-16] MEDS: OXcarbazepine 300 MG TAB PO SCH (09:00)
[2019-04-16] MEDS: NAPROXEN 250 MG TAB PO PRN (09:01)
[2019-04-16] MEDS ORDERED: OXCA300T14 PO (09:51)
[2019-04-16] MEDS ORDERED: MIRT1TAB16 PO (09:51)
[2019-04-16] MEDS ORDERED: ZYPR10TA PO (09:51)
--- NOTE | 2019-04-16 09:52 | MHDSPDOC ---
[facility] Discharge Summary Discharge Summary DATE OF ADMISSION: Apr 12, 2019 at 5:32 pm DATE OF DISCHARGE: Apr 16, 2019 DISCHARGE DIAGNOSES: Major depressive d/o recurrent severe w/o psychosis Hx alcohol use d/o REASON FOR ADMISSION: Patient is a 38 -year-old , male, with a history of depression and alcohol abuse who has had several admissions to [facility] in the past and was recently D/c from [place] for depression where he was not given psych follow-up who came to the ED endorsing depression with thoughts of it being easier just to hang himself and be done with all. Per ED pt has a history of difficulty maintaining outpatient f/u care. Pt stated in ED that he had been dating a woman for the past year and that they recently broke up forcing him to move in with his aunt and her who pt argues with as her is ex- and "he makes me tow the line." Pt also stated that he has been in and out of halfway, on and off probation or parole for the past 17yrs and that he was last incarcerated for 18mo due to DUI in 2017. He stated he has been sober from alcohol for 1.5mo. Pt also endorsing problems with back pain as he had back surgery in September 2018 and pain control has been a problem as he was told that his pain receptors are probably damaged from his history of chronic drug abuse. He stated that spray on biofreeze helps though. Pt seen and states he was feeling suicidal for the last few days and rather than acting on it decided to come here for help. States he feels better today and is no longer suicidal. States he had a good talk with his mother over the phone with his mother. States that he had back surgery in January and has been out of work which has "just been wearing on me financially" and sits at home not doing much. 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 States "I'm just bored." States his current meds are beneficial as they are now. Asking for a PCP prior d/c as he needs to see someone regularly he states rather than just going to walk in apts. CONSULTANTS INVOLVED: none TREATMENT AND PROGRESS ON THE UNIT : Pt was admitted to [facility], seen for psychiatric assessment and restarted on his outpatient medication trileptal 300mg bid, zyprexa 10mg qhs, and remeron 15mg qhs. He received his abilify maintena im prior his admission on 03/29/19 so did not need to receive during his treatment on [facility]. Pt found his medications beneficial and tolerated them well. He attended groups daily d uring his stay. His symptoms improved with treatment. On day of discharge he denied depression, anxiety, insomnia, SI/HI, hallucinations, delusions. He was discharged home with follow-up at [facility]. He felt safe for discharge. DISCHARGE ASSESSMENT: Pt seen and states that his mood is "good" and he's looking forward to going home today. He states his mother is very supportive of him. Continues to endorse some physical pain but has appts outpatient to follow-up with pain clinic and work on treatment for better back pain control which he's looking forward to. He is future oriented toward returning to school to be a drug and alcohol counselor so he can help others like he's been helped with his addition.. States he slept well last night. Feels he is tolerating his medications and they're beneficial. He is attending groups and finding them helpful. He denies depression, anxiety, insomnia, SI/HI, hallucinations, delusions. Pt feels safe to go home today. MENTAL STATUS EXAMINATION ON DISCHARGE: General Appearance: unkempt, appears stated age, hospital scubs/clothing Build: overweight Demeanor: average Eye Contact: average Activity: average Behavior: cooperative Speech: clear, spontaneous, normal volume, reg/rate,rhythm,volume Mood: euthymic, full range Mood "good" Affect: euthymic, congruent, appropriate Thought Process: logical/linear, intact Thought Content (Delusions): none reported, denies SI, HI, AVH Thought Content (Other): none reported, appropriate Thought Content (Aggressive): none reported Perception (Hallucinations): none reported Perception (Other): none reported Cognition (Impairment of): none reported Cognition(Intelligence Est.): average Oriented: Awake, Alert, Oriented times three Insight: good Judgment: good Psychosis: Denies MEDICATIONS ON DISCHARGE: abilify maintena 400mg im qmonthly trileptal 300mg bid zyprexa 10mg qhs remeron 15mg qhs. PLAN/FOLLOWUP ARRANGEMENTS: D/c home with follow-up at [facility]. The amount of time spent in the coordination of care for this patient was approximately 30 minutes. Vital Signs/I&Os Vital Signs Date Time Temp Pulse Resp B/P (MAP) Pulse Ox O2 Delivery O2 Flow Rate FiO2 04/16/19 06:35 96.9 52 14 107/62 (77) 04/15/19 06:30 Room Air 04/12/19 18:45 98 Medications Scheduled Aripiprazole Monohydrate (Abilify Maintena) 400 Mg Inj, 400 MG IM QMONTH, (Reported) Mirtazapine (Mirtazapine) 30 Mg Tab.rapdis, 15 MG PO QHS, (Reported) Olanzapine (Zyprexa) 10 Mg Tablet, 10 MG PO QHS, (Reported) Oxcarbazepine (Oxcarbazepine) 300 Mg Tablet, 300 MG PO BID, (Reported) Vitamin D (Vitamin D3) 1,000 Unit Tablet, 1,000 UNITS PO QHS, (Reported) Scheduled PRN Naproxen Sodium (Aleve) 220 Mg Tablet, 660 MG PO BID PRN for PAIN, (Reported) Allergies Coded Allergies: bee venom protein (honey bee) (Verified Allergy, Intermediate, SWELLING, 02/11/19) trazodone (Verified Adverse Reaction, Unknown, Prioprism, 04/13/19) Per Patient SHERIE WHITEHEAD DO Apr 16, 2019 9:52 am
== END 2019-04-16 13:05 | disposition home or self-care (01) | DRG 751 ==
LOC: M ED 12:18 → M ED INP 17:32 → M PSY 18:36
PROVIDERS: ADMIT Psychiatry & Neurology Addiction Medicine; ATTEND Psychiatry & Neurology Psychiatry
DX: F33.2 Major depressive disorder, recurrent severe without psychotic features (principal); F10.20 Alcohol dependence, uncomplicated; M54.9 Dorsalgia, unspecified; Z91.19 Patient's noncompliance with other medical treatment and regimen; Z63.0 Problems in relationship with spouse or partner; Z81.1 Family history of alcohol abuse and dependence; Z87.891 Personal history of nicotine dependence; Z56.0 Unemployment, unspecified; Z62.810 Personal history of physical and sexual abuse in childhood; Z62.811 Personal history of psychological abuse in childhood; F60.3 Borderline personality disorder; Z98.1 Arthrodesis status; E87.6 Hypokalemia; Z91.030 Bee allergy status; Z88.8 Allergy status to other drugs, medicaments and biological substances; Z79.899 Other long term (current) drug therapy

== ENCOUNTER → 2019-07-05 | Outpatient (REF) | payer OTHER ==
[~2019-07-05] MED LIST changes: +ALEV220T22 PO; +CHOL100029 PO; +MIRT1TAB16 PO; +OXCA300T14 PO; +ZYPR10TA PO
[2019-07-05 13:16] LABS: HEMATOCRIT 37.8 % (42.0-52.0); HEMOGLOBIN 11.3 g/dl (13.5-17.5); MEAN CORPUSCULAR HEMOGLOBIN 23.7 pg (27.0-33.0); MEAN CORPUSCULAR HGB CONC 29.9 g/dl (32.0-36.5); MEAN CORPUSCULAR VOLUME 79.2 fl (80.0-96.0); PLATELET COUNT, AUTOMATED 324 10^3/uL (150-450); RED BLOOD COUNT 4.77 10^6/uL (4.30-6.10); WHITE BLOOD COUNT 5.1 10^3/uL (4.0-10.0)
[2019-07-05 13:49] LABS: CHOLESTEROL RISK RATIO 4.666 (<5); PERCENT SATURATION 7.6 % (19.7-50.0)
[2019-07-05 13:56] LABS: FOLATE 8.8 NG/ML (>5.4)
[2019-07-05 14:05] LABS: HEMOGLOBIN A1c 5.5 %
== END ==
LOC: M SFHCPLAZ 10:43
DX: Z00.00 Encounter for general adult medical examination without abnormal findings (principal); Z98.84 Bariatric surgery status; Z13.1 Encounter for screening for diabetes mellitus

== ENCOUNTER 2019-11-11 16:33 | Emergency (ER) | payer OTHER ==
[~2019-11-11] VITALS: Ht 172.7 cm; Wt 138.5 kg
[2019-11-11] MEDS ORDERED: NS 1,000 ML IV ONE ×2 (17:15→19:30)
[2019-11-11 17:40] LABS: BASO # 0.1 10^3/uL (0.0-0.2); BASO % 1.1 % (0.0-1.0); EOS % 0.2 % (0.0-3.0); HEMATOCRIT 36.4 % (42.0-52.0); HEMOGLOBIN 11.2 g/dl (13.5-17.5); LYMPH # 2.1 10^3/uL (1.5-5.0); LYMPH % 38.3 % (24.0-44.0); MEAN CORPUSCULAR HEMOGLOBIN 24.2 pg (27.0-33.0); MEAN CORPUSCULAR HGB CONC 30.8 g/dl (32.0-36.5); MEAN CORPUSCULAR VOLUME 78.6 fl (80.0-96.0); MONO # 0.5 10^3/uL (0.0-0.8); MONO % 9.2 % (0.0-5.0); NEUTROPHILS # 2.7 10^3/uL (1.5-8.5); NEUTROPHILS % 50.8 % (36.0-66.0); PLATELET COUNT, AUTOMATED 319 10^3/uL (150-450); RED BLOOD COUNT 4.63 10^6/uL (4.30-6.10); WHITE BLOOD COUNT 5.4 10^3/uL (4.0-10.0)
[2019-11-11 18:28] LABS: ALT/SGPT 52 U/L (12-78); BILIRUBIN,DIRECT < 0.1 MG/DL (0.0-0.2); BILIRUBIN,TOTAL 0.2 MG/DL (0.2-1.0); BLOOD UREA NITROGEN 8 MG/DL (7-18); CALCIUM LEVEL 7.9 MG/DL (8.5-10.1); CARBON DIOXIDE LEVEL 28 MEQ/L (21-32); CHLORIDE LEVEL 108 MEQ/L (98-107); CK-MB VALUE MASS 12.7 NG/ML (<3.6); CPK CREATINE PHOSPHOKINASE 2408 U/L (39-308); CREATININE FOR GFR 1.02 MG/DL (0.70-1.30); GLOMERULAR FILTRATION RATE > 60.0 (>60); GLUCOSE, FASTING 83 MG/DL (70-100); LIPASE 110 U/L (73-393); MB/CK RELATIVE INDEX 0.53 (< OR =4); POTASSIUM SERUM 4.3 MEQ/L (3.5-5.1); SODIUM LEVEL 141 MEQ/L (136-145); TOTAL PROTEIN 7.1 GM/DL (6.4-8.2); TROPONIN I < 0.02 NG/ML (< 0.10)
[2019-11-11] MEDS ORDERED: ISOVUE-370 76% 100ML VIAL As Ordered ONE (18:29)
--- NOTE | 2019-11-11 19:02 | REPVR ---
PROCEDURE INFORMATION: Exam: CT Abdomen And Pelvis With Contrast Exam date and time: 11/11/2019 5:11 PM Age: 39 years old Clinical indication: Abdominal pain; Periumbilical; Additional info: Periumbilical pain, h/o umbilical hernia, "pop" today TECHNIQUE: Imaging protocol: Computed tomography of the abdomen and pelvis with intravenous contrast. Radiation optimization: All CT scans at this facility use at least one of these dose optimization techniques: automated exposure control; mA and/or kV adjustment per patient size (includes targeted exams where dose is matched to clinical indication); or iterative reconstruction. Contrast material: ISOVUE 370; Contrast volume: 100 ml; Contrast route: IV; COMPARISON: CT ABD PELVIS W/O CONTRAST 11/25/2016 5:16 PM FINDINGS: Lungs: Small patchy parenchymal opacity in the left lower lobe with a linear configuration likely represents atelectasis. Liver: There is a diffuse decrease in hepatic parenchymal density, consistent with steatosis. Gallbladder and bile ducts: Normal. No calcified stones. No ductal dilation. Pancreas: Normal. No ductal dilation. Spleen: Normal. No splenomegaly. Adrenals: Normal. No mass. Kidneys and ureters: Normal. No hydronephrosis. Stomach and bowel: This patient is status post gastric bypass surgery. Appendix: No evidence of appendicitis. Intraperitoneal space: Unremarkable. No free air. No significant fluid collection. Vasculature: Retroaortic left renal vein. Lymph nodes: Unremarkable. No enlarged lymph nodes. Bladder: Unremarkable as visualized. Reproductive: Unremarkable as visualized. Bones/joints: The spine demonstrates mild degenerative changes in the lower thoracic spine with stable compression deformities at T10 through T12. Mild central spinal stenosis at L3-L4 and L4-L5. Soft tissues: There is a large umbilical hernia. There is slight increased streaky density demonstrated within the herniated fat and traction on adjacent small bowel loops at the mouth of the hernia in comparison to the prior study of 2017. Finding may indicate early incarceration and should be correlated with clinical exam. IMPRESSION: 1. There is a diffuse decrease in hepatic parenchymal density, consistent with steatosis. 2. This patient is status post gastric bypass surgery. 3. There is a large umbilical hernia. There is slight increased streaky density demonstrated within the herniated fat and traction on adjacent small bowel loops at the mouth of the hernia in comparison to the prior study of 2017. Finding may indicate early incarceration and should be correlated with clinical exam. Electronically signed by: Sree Wood On 11/11/2019 19:02:24 PM
[2019-11-11] MEDS ORDERED: MORPHINE 4 MG/ML 1ML VIAL/SYRINGE (J2270) IV ONE (19:15)
[2019-11-11] MEDS ORDERED: ONDANSETRON 4MG/2ML VIAL IV ONE (19:15)
[2019-11-11 20:24] LABS: CK-MB VALUE MASS 9.5 NG/ML (<3.6); CPK CREATINE PHOSPHOKINASE 2053 U/L (39-308); MB/CK RELATIVE INDEX 0.46 (< OR =4); TROPONIN I < 0.02 NG/ML (< 0.10)
[2019-11-11 21:06] VITALS: BP 134/81
--- NOTE | 2019-11-12 06:21 | ER ---
DATE OF CONSULTATION: 11/11/2019 REASON FOR CONSULTATION: Abdominal pain. HISTORY OF PRESENT ILLNESS: The patient is a pleasant 39-year-old man who presented to the emergency department at 4:30 this afternoon complaining of abdominal pain. The patient reports that he had bent down this morning and felt a pulling or popping sensation in his mid abdomen. He noted the immediate onset of some soreness and has noted pain throughout the day since then. He has not had any fevers or chills. He denies any nausea or vomiting. The discomfort seems to be centered around the umbilicus, but also extends up into the epigastrium an additional 10-12 cm. He felt that the pain was becoming unbearable. He was concerned about the possibility that there was a problem with his hernia. He has had an umbilical hernia noted for perhaps 4 years. He reports that this has been incarcerated for quite some time. He did note that he had initially been able to reduce this, but for at least several years it has been non reducible. His only abdominal surgery is a laparoscopic gastric bypass in 2006. In the emergency department, he was evaluated with some lab work and a CT scan of the abdomen and pelvis. I was asked to evaluate the patient regarding his abdominal pain and his hernia. ALLERGIES: The patient reports that he had developed priapism while on TRAZODONE. MEDICATIONS: - mirtazapine 15 mg daily at bedtime for sleep - oxcarbazepine 300 mg by mouth twice a day - aripiprazole monohydrate 400 mg intramuscularly every month - vitamin D tablet 1000 units daily at bedtime PAST SURGICAL HISTORY: The patient had a laparoscopic gastric bypass in 2006. He has had surgery on his left ankle and has also had a spinal fusion. MEDICAL HISTORY: Significant only for issues with anxiety and depression. He has had obesity and remains obese despite his gastric bypass. FAMILY HISTORY: Noncontributory. REVIEW OF SYSTEMS: Reveals no history of chest pain, palpitations or cardiac issues. He denies cough, wheezing or sputum production. He has had no history of deep vein thrombosis (DVT) or pulmonary embolus. He denies any dysuria or hematuria. He has had no GI symptoms today or recently. He is having no significant orthopedic issues at present. PHYSICAL EXAMINATION: On presentation, the patient's height is recorded as 5 feet 8 inches with a weight of 138 kg. His vital signs showed him to be afebrile with a pulse of 83 and blood pressure of 147/91. The patient is lying quietly on the hospital stretcher in the emergency department. He is alert, oriented and is lying quietly and appears fairly comfortable at rest. Sclerae are anicteric. Skin is warm and dry. Auscultation of the chest reveals clear breath sounds bilaterally. He has a regular cardiac rhythm of about 70 at this time. The abdomen is obese. I cannot with certainty identify the location of his trocar sites from his gastric bypass. He does have a protrusion within the umbilicus consistent with an umbilical hernia. There is no redness or inflammation of the skin identified. Auscultation reveals normal bowel sounds in all four quadrants. The abdomen is soft throughout. He has some tenderness on palpation around the umbilicus and extending up in a paramedian position, primarily on the right, but also to a lesser degree on the left for another 10- 15 cm. He seems most tender slightly above the level of the umbilicus and to the right of the midline about 2 cm. The umbilical hernia bulge is about 4-5 cm in diameter. This is soft and there is no tenderness to light palpation of his hernia. This does not reduce with light pressure and I did not attempt more firmly to reduce his hernia. There is no sign of any other abdominal hernias. He has palpable radial pulses that are strong and regular. LABORATORY STUDIES: Include a CBC that shows a white count of 5 with a differential showing 51% neutrophils, 38% lymphocytes and 9% monocytes. Hemoglobin is 11 with a hematocrit of 36 and the platelet count is 319,000. His MCV is slightly low at 79. Chemistry profile shows a sodium of 141, potassium 4.3, chloride 108, CO2 of 28, BUN of 8, creatinine 1, and a glucose of 83. Calcium is slightly low at 7.9. His total creatinine kinase is 2408, though his CK-MB is only 12.7. His troponin is less than 0.02. A lipase was 110. Urinalysis is normal. He had a CT scan of the abdomen and pelvis. I reviewed the images and report personally. The teleradiologist interpreted the study as showing signs of a prior gastric bypass procedure. He noted a large umbilical hernia. He reported that there was a slight increased streaky density within the herniated fat and suggested some possible traction on adjacent small bowel loops at the mouth of the hernia. He recommended clinical correlation. On my exam, I reviewed a prior CT scan from 2017 as well as his study from today. In 2017, he had a slightly smaller bulge of fat through his umbilical hernia. The defect was noted to be perhaps half an inch. Currently, the hernia defect itself is about 1 inch. There is some fat herniated through this defect. There is no bowel extending into the hernia, though there is some bowel just below the opening of the defect. There is no sign of any change in bowel caliber near the opening to suggest entrapment or adhesions to the bowel. There is no free fluid within the abdomen. I do not see any inflammation or bleeding within the abdominal wall. IMPRESSION: The patient has some abdominal wall pain surrounding his umbilical hernia. The hernia itself has been incarcerated for probably several years. Today, the hernia feels soft and not indurated or inflamed. I suspect that he has strained an abdominal wall muscle, although he may have transiently forced some additional tissue into his hernia or perhaps stretched or torn some small adhesions of the fat into the hernia. In any event, he does not have any bowel within the hernia. There is no sign of bowel obstruction. RECOMMENDATIONS: At this point, I think the patient would be safe for discharge. He should be provided with analgesics as necessary for addressing his discomfort. I advised him that he should follow up in the surgical clinic to arrange repair of his hernia. He reported that his primary physician was supposed to be arranging this after a recent visit anyway. Certainly, if he has worsening of his pain or develops other associated symptoms such as nausea or vomiting, he should return to the emergency department as needed. KATELYNN
== END 2019-11-11 21:53 | disposition home or self-care (01) ==
LOC: M ED 16:33
DX: R10.33 Periumbilical pain (principal); S30.92XA Unspecified superficial injury of abdominal wall, initial encounter; K42.9 Umbilical hernia without obstruction or gangrene; R74.8 Abnormal levels of other serum enzymes; Z88.8 Allergy status to other drugs, medicaments and biological substances; Z91.030 Bee allergy status; Z98.84 Bariatric surgery status; X58.XXXA Exposure to other specified factors, initial encounter; Y92.89 Other specified places as the place of occurrence of the external cause; Y93.9 Activity, unspecified; Y99.9 Unspecified external cause status
CPT/HCPCS: 74177; 80048; 80076; 81001; 82550; 82553; 83690; 85025; 96361; 96374; 96375; 99284; J2270; J2405; Q9967

== ENCOUNTER → 2019-12-27 | Outpatient (CLI) | payer OTHER ==
[~2019-12-27] MED LIST changes: +NORC1TAB7 PO; +SERO1TAB PO
== END ==
LOC: M LABSMTC 12:48
PROVIDERS: ATTEND Anesthesiology
DX: Z03.818 Encounter for observation for suspected exposure to other biological agents ruled out (principal); Z11.59 Encounter for screening for other viral diseases
CPT/HCPCS: C9803; U0003

== ENCOUNTER 2020-01-01 07:52 | Day surgery (SDC) | payer OTHER ==
[~2020-01-01] VITALS: Ht 175.3 cm; Wt 139.7 kg
[~2020-01-01 07:52] MED LIST changes: +LR 1,000 ML IV ONE; -NORC1TAB7 PO
[2020-01-01] MEDS ORDERED: MIDAZOLAM INJ 2MG/2ML VIAL (J2250 PER 1MG) As Ordered ONE (08:03)
[2020-01-01] MEDS ORDERED: LIDOCAINE 2% 100MG/5ML SDV (FOR ANES.) As Ordered ONE (08:04)
[2020-01-01] MEDS ORDERED: PHENYLephrine HCL 500 MCG/5 ML (100MCG/ML) SYRINGE (J2370) As Ordered ONE (08:04)
[2020-01-01] MEDS ORDERED: ROCURONIUM BROMIDE 50 MG/5 ML VIAL As Ordered ONE ×3 (08:04→10:43)
[2020-01-01] MEDS ORDERED: propofoL 200 MG/20 ML VIAL As Ordered ONE ×2 (08:04→10:45)
[2020-01-01] MEDS ORDERED: SUGAMMADEX SODIUM 500 MG/5 ML VIAL (BRIDION) As Ordered ONE (08:04)
[2020-01-01] MEDS ORDERED: ePHEDrine SULFATE 25 MG/5 ML(5MG/ML) SYRINGE As Ordered ONE (08:04)
[2020-01-01] MEDS ORDERED: dexameTHASONE 4 MG/ML 1ML VIAL (J1100 PER 1MG) As Ordered ONE (08:04)
[2020-01-01] MEDS ORDERED: fentaNYL 250 MCG/5 ML INJECTION (J3010) As Ordered ONE (08:04)
[2020-01-01] MEDS ORDERED: ONDANSETRON 4MG/2ML VIAL As Ordered ONE (08:04)
[2020-01-01] MEDS ORDERED: BUPIVACAINE HCL 0.25% 30ML VIAL As Ordered ONE (09:11)
[2020-01-01] MEDS ORDERED: ACETAMINOPHEN 1000MG 100ML IV BTL (OFIRMEV) (J0131 PER 10MG) As Ordered ONE (09:43)
[2020-01-01] MEDS ORDERED: HYDROmorphone HCL 2 MG/ML 1ML VIAL (J1170) As Ordered ONE (11:52)
[2020-01-01] MEDS ORDERED: NORC1TAB7 PO (12:24)
[2020-01-01] MEDS ORDERED: ONDANSETRON 4MG/2ML VIAL IV PRN (12:45)
[2020-01-01] MEDS ORDERED: ACETAMINOPHEN TAB 650MG DOSE (2X325MG) PO PRN (12:45)
[2020-01-01] MEDS ORDERED: fentaNYL 100 MCG/2 ML INJECTION (J3010) IV PRN (12:45)
[2020-01-01] MEDS ORDERED: MEPERIDINE INJ 25 MG/ML VIAL (J2175) IV PRN (12:45)
[2020-01-01] MEDS ORDERED: IBUPROFEN 600MG TAB PO PRN (12:45)
[2020-01-01] MEDS ORDERED: METOCLOPRAMIDE INJ 10MG/2ML VIAL (J2765 PER 1) IV PRN (12:45)
[2020-01-01] MEDS ORDERED: LR 1,000 ML IV SCH (12:45)
[2020-01-01] MEDS ORDERED: PERCOCET 5MG/325MG TAB PO PRN (12:45)
[2020-01-01] MEDS ORDERED: NORCO, ANEXSIA 5/325MG TABLET (HYDROcodone/ACETAMINOPHEN) PO PRN (12:45)
[2020-01-01 13:46] VITALS: BP 143/89
--- NOTE | 2020-01-07 23:00 | RO ---
DATE OF PROCEDURE: 01/01/2020 PREOPERATIVE DIAGNOSIS: Incarcerated umbilical hernia. POSTOPERATIVE DIAGNOSIS: Incarcerated umbilical hernia. PROCEDURE PERFORMED: Robotic-assisted laparoscopic repair of incarcerated umbilical hernia with mesh. The mesh utilized was a round Parietex, reference code [id number] and lot number [id number]. SURGEON: Ry Ceja MD BASEBALL HAND SEWER: KAREEN Kolb. Piedad was essential for manipulation of the robotic instruments, change of instruments, insertion of mesh and sutures and closure of the incisions. ANESTHESIA: General. INDICATIONS FOR PROCEDURE: Patient is a 39-year-old man who had been seen in the emergency department with some pain at an incarcerated umbilical hernia. The hernia did not contain any bowel at that time, and the discomfort improved spontaneously. He is now for repair of his incarcerated umbilical hernia. DESCRIPTION OF PROCEDURE: The patient was brought to the operating room and placed on the table in a supine position. He was placed under general endotracheal anesthesia. The patient's abdomen was prepped and draped in a sterile fashion. Examination of the abdomen revealed a small bulge, perhaps 4-5 cm in diameter, at the umbilicus which was not reducible. Initial entry into the abdomen was in the left midabdomen far laterally. Local anesthesia was achieved with 0.25% Marcaine and a short transverse incision was made. A Veress needle was inserted and after a positive hanging drop test, the abdomen was insufflated with carbon dioxide gas. An 8 mm port was placed over a 5 mm scope, and this was advanced through the abdominal wall without difficulty. Initial examination showed no evidence of trocar or Veress needle injury. Inspection showed that there was a moderate amount of preperitoneal fat along the midline and overlying the area of the hernia. Two additional 8 mm ports were placed, one in the left upper quadrant below the costal margin and one in the left lower quadrant. The [employer] Venkat patient cart for the XI system was brought into position and docked to the middle camera port. Targeting took place and the additional robotic arms were docked. A Force Bipolar and cauterizing scissors were then inserted. I then moved to the control console to proceed with the surgery. Initially a peritoneum and preperitoneal flap was developed on the anterior abdominal wall. The left lateral border of the fibrofatty tissue was scored and elevated away from the abdominal wall extending from the left to the right. As the hernia was encountered, the contents of the hernia, which consisted only of a large amount of preperitoneal fat were freed and reduced into the abdomen. The dissection was carried over to the right side of the midline to the edge of the preperitoneal fat. The hernia defect was inspected and was a round defect approximately 3 cm in diameter. The left upper quadrant 8 mm port was converted to a 12-mm port. A #1 Stratafix suture was inserted. The abdominal pressure was reduced to 8 mmHg, and the fascial defect was closed longitudinally with a running suture of #1 Stratafix. Measurement suggested that a 9 cm Parietex patch would be adequate to provide excellent coverage on all sides of the defect. This was therefore inserted and placed over the sutured defect. This was then sutured at the midline with a #2-0 V-Loc suture. The suture was then carried to the edge of the mesh and then continued as a circumferential suturing of the mesh to the anterior abdominal wall. A second suture was required to complete the approximation. Inspection showed an excellent approximation of the mesh over the area of the closed hernia. The peritoneal flap was then closed with a running suture of #2-0 V-Loc. This completely reperitonealized the piece of mesh. The robotic instruments were then removed. A Vineet-Parveen device was used to place a single Vicryl suture in the internal peritoneum and fascia of the 12-mm port site in the left upper quadrant. The abdomen was then deflated and the remaining trocars were removed. The skin incisions were closed with buried #4-0 Vicryl and Steri-Strips. Light dressings were applied. The patient tolerated the procedure well without apparent complication. He was awakened in the operating room, extubated and moved to the recovery room in stable condition.
== END 2020-01-01 14:00 | disposition home or self-care (01) ==
LOC: M SDC 07:52
PROVIDERS: ATTEND Surgery
DX: K42.0 Umbilical hernia with obstruction, without gangrene (principal); F41.9 Anxiety disorder, unspecified; F32.9 Major depressive disorder, single episode, unspecified; Z88.8 Allergy status to other drugs, medicaments and biological substances; Z91.030 Bee allergy status
CPT/HCPCS: 49653; C1781; J0131; J1100; J1170; J2250; J2370; J2405; J3010

== ENCOUNTER 2020-03-09 23:10 | Emergency (ER) | payer OTHER ==
[~2020-03-09] VITALS: Ht 175.3 cm; Wt 136.4 kg
[~2020-03-09 23:10] MED LIST changes: -LR 1,000 ML IV ONE; +NORC1TAB7 PO; +PANT40TA29 PO; -PANT40TA3 PO
--- NOTE | 2020-03-10 00:49 | REPVR ---
PROCEDURE INFORMATION: Exam: XR Left Tibia and Fibula Exam date and time: 03/10/2020 12:36 AM Age: 39 years old Clinical indication: Pain; Lower leg; Left; Prior surgery; Surgery date: 6+ months; Surgery type: Ankle; Additional info: Injury TECHNIQUE: Imaging protocol: XR Left tibia and fibula. Views: 2 views. COMPARISON: No relevant prior studies available. FINDINGS: Bones/joints: Changes of prior ORIF in the distal tibia and fibula. No acute fracture or malalignment. No signs of hardware failure or loosening. Knee and ankle joint spaces are unremarkable. Soft tissues: Mild soft tissue swelling. IMPRESSION: 1. Mild soft tissue swelling. 2. No fracture or malalignment. Electronically signed by: Colt Saez On 03/10/2020 00:48:42 AM
[2020-03-10] MEDS ORDERED: cefTRIAXone SOD 1 GM in D5W MINI-BAG PLUS 50 ML IV ONE (01:15)
[2020-03-10] MEDS ORDERED: KETOROLAC 30 MG/ML 1ML VIAL IV ONE (01:15)
[2020-03-10] MEDS ORDERED: NS 1,000 ML IV ONE (01:15)
[2020-03-10 01:34] LABS: BASO # 0.1 10^3/uL (0.0-0.2); BASO % 0.9 % (0.0-1.0); EOS % 0.1 % (0.0-3.0); HEMOGLOBIN 11.3 g/dl (13.5-17.5); LYMPH # 2.3 10^3/uL (1.5-5.0); LYMPH % 33.8 % (24.0-44.0); MEAN CORPUSCULAR HEMOGLOBIN 26.2 pg (27.0-33.0); MEAN CORPUSCULAR HGB CONC 32.3 g/dl (32.0-36.5); MONO # 0.5 10^3/uL (0.0-0.8); MONO % 7.6 % (0.0-5.0); NEUTROPHILS # 3.9 10^3/uL (1.5-8.5); NEUTROPHILS % 57.2 % (36.0-66.0); PLATELET COUNT, AUTOMATED 318 10^3/uL (150-450); RED BLOOD COUNT 4.32 10^6/uL (4.30-6.10); WHITE BLOOD COUNT 6.7 10^3/uL (4.0-10.0)
[2020-03-10 01:48] LABS: BLOOD UREA NITROGEN 17 MG/DL (7-18); C REACTIVE PROTEIN QUANTITATIV 0.46 MG/DL (0.00-0.30); CALCIUM LEVEL 8.5 MG/DL (8.5-10.1); CARBON DIOXIDE LEVEL 26 MEQ/L (21-32); CHLORIDE LEVEL 113 MEQ/L (98-107); CREATININE FOR GFR 1.03 MG/DL (0.70-1.30); GLOMERULAR FILTRATION RATE > 60.0 (>60); GLUCOSE, FASTING 101 MG/DL (70-100); POTASSIUM SERUM 3.9 MEQ/L (3.5-5.1); SODIUM LEVEL 142 MEQ/L (136-145)
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
[2020-03-10 01:58] LABS: ERYTHROCYTE SEDIMENTATION RATE 4 mm/hr (0-15)
[2020-03-10] MEDS ORDERED: KEFL500C17 PO (02:11)
[2020-03-10 02:23] VITALS: BP 128/70
== END 2020-03-10 02:25 | disposition home or self-care (01) ==
LOC: M ED 23:10
DX: L03.116 Cellulitis of left lower limb (principal); K21.9 Gastro-esophageal reflux disease without esophagitis; Z91.030 Bee allergy status; Z88.8 Allergy status to other drugs, medicaments and biological substances
CPT/HCPCS: 73590; 80048; 83605; 85025; 85652; 86140; 87040; 93971; 96365; 96375; 99284; J0696; J1885

== ENCOUNTER → 2020-08-19 | Outpatient (REF) | payer OTHER ==
[~2020-08-19] MED LIST changes: +GABA-282 PO; -GABA-843 PO; +KEFL500C17 PO; +MIRT-62 PO; -REME15TA PO; +RISP-8 PO; -RISP1TAB3 PO
[2020-08-19 17:43] LABS: HEMATOCRIT 39.1 % (42.0-52.0); HEMOGLOBIN 11.8 g/dl (13.5-17.5); MEAN CORPUSCULAR HEMOGLOBIN 25.8 pg (27.0-33.0); MEAN CORPUSCULAR HGB CONC 30.2 g/dl (32.0-36.5); MEAN CORPUSCULAR VOLUME 85.4 fl (80.0-96.0); PLATELET COUNT, AUTOMATED 313 10^3/uL (150-450); RED BLOOD COUNT 4.58 10^6/uL (4.30-6.10); WHITE BLOOD COUNT 5.9 10^3/uL (4.0-10.0)
[2020-08-19 17:55] LABS: ALBUMIN 3.9 GM/DL (3.2-5.2); ALT/SGPT 30 U/L (12-78); BILIRUBIN,TOTAL 0.2 MG/DL (0.2-1.0); BLOOD UREA NITROGEN 13 MG/DL (7-18); CALCIUM LEVEL 8.7 MG/DL (8.5-10.1); CARBON DIOXIDE LEVEL 29 MEQ/L (21-32); CHLORIDE LEVEL 108 MEQ/L (98-107); CREATININE FOR GFR 1.17 MG/DL (0.70-1.30); FERRITIN 6 NG/ML (26-388); FREE T4 0.82 NG/DL (0.76-1.46); GLOMERULAR FILTRATION RATE > 60.0 (>60); GLUCOSE, FASTING 81 MG/DL (70-100); IRON (FE) 23 UG/DL (65-175); PERCENT SATURATION 5.3 % (19.7-50.0); POTASSIUM SERUM 4.4 MEQ/L (3.5-5.1); SODIUM LEVEL 144 MEQ/L (136-145); TOTAL IRON BINDING CAPACITY 434 UG/DL (250-450); TOTAL PROTEIN 6.9 GM/DL (6.4-8.2)
[2020-08-19 17:57] LABS: TOTAL 25(OH) VITAMIN D 13.3 NG/ML (30.0-100.0); VITAMIN B12 LEVEL 343 PG/ML (247-911)
[2020-08-19 17:59] LABS: FOLATE 6.1 NG/ML (>5.4)
[2020-08-19 18:13] LABS: HEMOGLOBIN A1c 5.6 %
== END ==
LOC: M SFHCADAM 14:04
PROVIDERS: ATTEND Family Medicine
DX: Z98.84 Bariatric surgery status (principal); F31.70 Bipolar disorder, currently in remission, most recent episode unspecified; Z68.41 Body mass index [BMI] 40.0-44.9, adult

== ENCOUNTER 2020-11-05 20:16 | Emergency (ER) | payer OTHER ==
[~2020-11-05] VITALS: Ht 175.3 cm; Wt 140.6 kg
[~2020-11-05 20:16] MED LIST changes: +GABA-283 PO; -GABA-845 PO
[2020-11-05 20:17] VITALS: BP 161/85
[2020-11-05] MEDS ORDERED: ABIL300I (20:22)
== END 2020-11-05 21:55 | disposition left against medical advice (07) ==
LOC: M ED 20:16
DX: Z53.21 Procedure and treatment not carried out due to patient leaving prior to being seen by health care provider (principal)

== ENCOUNTER → 2020-11-18 | Outpatient (REF) | payer OTHER ==
[~2020-11-18] MED LIST changes: +ABIL300I
[2020-11-18 13:02] LABS: HEMOGLOBIN 13.6 g/dl (13.5-17.5); MEAN CORPUSCULAR HGB CONC 31.6 g/dl (32.0-36.5); MEAN CORPUSCULAR VOLUME 85.3 fl (80.0-96.0); PLATELET COUNT, AUTOMATED 320 10^3/uL (150-450); RED BLOOD COUNT 5.04 10^6/uL (4.30-6.10); WHITE BLOOD COUNT 8.4 10^3/uL (4.0-10.0)
[2020-11-18 13:32] LABS: PERCENT SATURATION 27.5 % (19.7-50.0)
[2020-11-18 13:37] LABS: TOTAL 25(OH) VITAMIN D 16.5 NG/ML (30.0-100.0)
== END ==
LOC: M SFHCADAM 11:17
PROVIDERS: ATTEND Physician Assistant
DX: D50.8 Other iron deficiency anemias (principal); E55.9 Vitamin D deficiency, unspecified; Z98.84 Bariatric surgery status; R39.15 Urgency of urination

== ENCOUNTER 2020-12-01 19:44 | Emergency (ER) | payer OTHER ==
[~2020-12-01] VITALS: Ht 175.3 cm; Wt 140.2 kg
[2020-12-01] MEDS ORDERED: GABA-1171 PO (19:54)
[2020-12-01] MEDS ORDERED: CYCL-707 PO (19:54)
[2020-12-02] MEDS ORDERED: diazePAM 10 MG TAB PO ONE
[2020-12-02] MEDS ORDERED: KETOROLAC 60MG 2ML VIAL IM ONE
[2020-12-02] MEDS ORDERED: LIDOCAINE 5% (LIDODERM) PATCH TD ONE
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
[2020-12-02 03:55] VITALS: BP 134/72
--- NOTE | 2020-12-02 14:13 | ED PDOC ---
Post-Departure Follow-Up mri t spine faxed to dr germain for fu Amirah Mitchell MD Dec 02, 2020 14:13
[2020-12-02] MEDS ORDERED: **NOTE PATIENT COMMENT** MISC XX SCH (21:00)
== END 2020-12-02 03:57 | disposition home or self-care (01) ==
LOC: M ED 19:44
DX: M54.5 Low back pain (principal); M54.6 Pain in thoracic spine; Z79.899 Other long term (current) drug therapy; Z88.8 Allergy status to other drugs, medicaments and biological substances; Z91.030 Bee allergy status
CPT/HCPCS: 72146; 72148; 81001; 96372; 99283; J1885

== ENCOUNTER → 2020-12-03 | Outpatient (REF) | payer OTHER ==
[~2020-12-03] MED LIST changes: +CYCL-707 PO; +GABA-1171 PO
[2020-12-03 13:58] LABS: APPEARANCE, URINE CLEAR (CLEAR); BACTERIA, URINE AUTO NEGATIVE (NEGATIVE); BILIRUBIN, URINE AUTO NEGATIVE (NEGATIVE); BLOOD, URINE BLOOD NEGATIVE (NEGATIVE); CALCIUM OXALATE CRYSTALS SMALL; COLOR, URINE YELLOW (YELLOW); GLUCOSE, URINE (UA) AUTO NEGATIVE (NEGATIVE); KETONE, URINE AUTO NEGATIVE (NEGATIVE); LEUKOCYTE ESTERASE, URINE AUTO NEGATIVE (NEGATIVE); MUCUS, URINE SMALL (NEGATIVE); NITRITE, URINE AUTO NEGATIVE (NEGATIVE); PROTEIN, URINE AUTO NEGATIVE (NEGATIVE); RBC, URINE AUTO 0 /HPF (0-3); SPECIFIC GRAVITY URINE AUTO 1.017 (1.002-1.035); SQUAMOUS EPITHELIAL CELL UR AU 0 /HPF (0-6); UROBILINOGEN, URINE AUTO 0.2 mg/dL (0.0-2.0); WBC, URINE AUTO 1 /HPF (0-3)
== END ==
LOC: M SFHCADAM 11:28
PROVIDERS: ATTEND Family Medicine
DX: R33.9 Retention of urine, unspecified (principal)

== ENCOUNTER 2020-12-19 20:02 | Emergency (ER) | payer OTHER ==
[~2020-12-19] VITALS: Ht 172.7 cm; Wt 136.4 kg
[2020-12-19] MEDS ORDERED: CARB400T4 PO (20:24)
[2020-12-19] MEDS ORDERED: ATOM25CA7 PO (20:24)
[2020-12-19] MEDS ORDERED: ASPIRIN 81 MG CHEW TABLET PO ONE (20:30)
[2020-12-19] MEDS ORDERED: GI COCKTAIL 50ML BTL(HYOSCYAMINE/MAALOX/LIDOCAINE VISCOUS)(1:3:1) PO ONE (20:30)
[2020-12-19 20:36] LABS: BASO # 0.1 10^3/uL (0.0-0.2); EOS # 0.2 10^3/uL (0.0-0.5); HEMATOCRIT 39.2 % (42.0-52.0); HEMOGLOBIN 12.7 g/dl (13.5-17.5); LYMPH # 2.1 10^3/uL (1.5-5.0); LYMPH % 30.6 % (24.0-44.0); MEAN CORPUSCULAR HGB CONC 32.4 g/dl (32.0-36.5); MEAN CORPUSCULAR VOLUME 86.5 fl (80.0-96.0); MONO # 0.5 10^3/uL (0.0-0.8); MONO % 7.1 % (2.0-8.0); PLATELET COUNT, AUTOMATED 329 10^3/uL (150-450); RED BLOOD COUNT 4.53 10^6/uL (4.30-6.10); WHITE BLOOD COUNT 6.9 10^3/uL (4.0-10.0)
--- NOTE | 2020-12-19 21:08 | REPVR ---
PROCEDURE INFORMATION: Exam: XR Chest Exam date and time: 12/19/2020 8:48 PM Age: 40 years old Clinical indication: Chest wall pain; Additional info: Chest pain TECHNIQUE: Imaging protocol: XR of the chest. Views: 1 view. COMPARISON: MRI-Spine,Thoracic without con 12/02/2020 1:58 AM FINDINGS: Lungs: Unremarkable. No consolidation. Pleural spaces: Unremarkable. No pleural effusion. No pneumothorax. Heart/Mediastinum: Unremarkable. No cardiomegaly. Bones/joints: Status post interbody spinal fusion midthoracic spine. IMPRESSION: No acute findings. Electronically signed by: Sree Wood On 12/19/2020 21:08:07 PM
[2020-12-19 21:42] LABS: ALBUMIN 3.4 GM/DL (3.2-5.2); ALT/SGPT 37 U/L (12-78); BILIRUBIN,DIRECT < 0.1 MG/DL (0.0-0.2); BILIRUBIN,TOTAL 0.1 MG/DL (0.2-1.0); BLOOD UREA NITROGEN 8 MG/DL (7-18); CALCIUM LEVEL 8.2 MG/DL (8.5-10.1); CARBON DIOXIDE LEVEL 24 MEQ/L (21-32); CHLORIDE LEVEL 111 MEQ/L (98-107); CK-MB VALUE MASS 1.5 NG/ML (<3.6); CPK CREATINE PHOSPHOKINASE 153 U/L (39-308); CREATININE FOR GFR 0.92 MG/DL (0.70-1.30); GLOMERULAR FILTRATION RATE > 60.0 (>60); GLUCOSE, FASTING 107 MG/DL (70-100); LIPASE 118 U/L (73-393); MB/CK RELATIVE INDEX 0.98 (< OR =4); NT-PRO BNP 19 PG/ML (<125); SODIUM LEVEL 143 MEQ/L (136-145); TOTAL PROTEIN 6.6 GM/DL (6.4-8.2); TROPONIN I < 0.02 NG/ML (< 0.10)
[2020-12-19] MEDS ORDERED: KETOROLAC 30 MG/ML 1ML VIAL IV ONE (22:15)
[2020-12-19] MEDS ORDERED: ISOVUE-370 76% 100ML VIAL As Ordered ONE (22:34)
--- NOTE | 2020-12-19 23:53 | REPVR ---
PROCEDURE INFORMATION: Exam: CTA Chest With Contrast Exam date and time: 12/19/2020 10:59 PM Age: 40 years old Clinical indication: Pain; Radiating; Additional info: Chest pain radiates to left neck, R/O dissection TECHNIQUE: Imaging protocol: Computed tomographic angiography of the chest with contrast. 3D rendering (Not supervised by radiologist): MIP and/or 3D reconstructed images were created by the technologist. Radiation optimization: All CT scans at this facility use at least one of these dose optimization techniques: automated exposure control; mA and/or kV adjustment per patient size (includes targeted exams where dose is matched to clinical indication); or iterative reconstruction. Contrast material: ISOVUE 370; Contrast volume: 75 ml; Contrast route: INTRAVENOUS (IV); COMPARISON: CR PORTABLE CHEST X-RAY 12/19/2020 8:19 PM FINDINGS: Pulmonary arteries: Suboptimal examination secondary to bolus timing for evaluation of pulmonary embolism. Aorta: Unremarkable. No aortic aneurysm. No aortic dissection. Lungs: No filling defect in the main pulmonary and major pulmonary vessels. Pleural spaces: Unremarkable. No pneumothorax. No pleural effusion. Heart: Unremarkable. No cardiomegaly. No pericardial effusion. Lymph nodes: Unremarkable. No enlarged lymph nodes. Bones/joints: Posterior spinal fixation of T5, T6 and T7 vertebra. Soft tissues: Unremarkable. IMPRESSION: 1. Suboptimal examination secondary to bolus timing for evaluation of pulmonary embolism. 2. No pulmonary embolism in the main pulmonary artery and major arteries. Evaluation of smaller arteries is limited due to limitations of the study. Electronically signed by: Patricio Medina On 12/19/2020 23:52:47 PM
[2020-12-20 01:36] LABS: CPK CREATINE PHOSPHOKINASE 112 U/L (39-308); MB/CK RELATIVE INDEX 1.79 (< OR =4); TROPONIN I < 0.02 NG/ML (< 0.10)
[2020-12-20 02:00] VITALS: BP 123/73
--- NOTE | 2020-12-20 20:44 | ECGEPIP ---
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
--- NOTE | 2020-12-20 20:47 | ECGEPIP ---
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
== END 2020-12-20 02:23 | disposition home or self-care (01) ==
LOC: M ED 20:02
DX: R07.89 Other chest pain (principal); K76.0 Fatty (change of) liver, not elsewhere classified; F31.9 Bipolar disorder, unspecified; Z98.84 Bariatric surgery status; Z88.8 Allergy status to other drugs, medicaments and biological substances; Z91.030 Bee allergy status; Z79.899 Other long term (current) drug therapy
CPT/HCPCS: 71045; 71275; 80048; 80076; 82550; 82553; 83690; 83880; 84443; 85025; 93005; 93041; 94760; 96374; 99285; J1885; Q9967

== ENCOUNTER 2021-02-15 15:20 | Emergency (ER) | payer OTHER ==
[~2021-02-15] VITALS: Ht 175.3 cm; Wt 138.6 kg
[~2021-02-15 15:20] MED LIST changes: +ATOM25CA7 PO; +CARB400T4 PO
[2021-02-15] MEDS ORDERED: LIDOCAINE 4% CREAM 5GM (LMX4) TOP ONE (16:50)
[2021-02-15] MEDS ORDERED: diazePAM 10 MG TAB PO ONE (16:50)
--- NOTE | 2021-02-15 17:47 | REP ---
INDICATION: hardwear T3, tingling LUE, severe pain cervical COMPARISON: CT dated 02/11/2019 TECHNIQUE: AP, lateral, and swimmers views. FINDINGS: Posterior fixation and laminectomy at T5-T7 again noted. Alignment and kyphosis is maintained. Vertebral bodies intact. No acute fracture / compression injury or subluxation. Moderate multilevel degenerative changes include osteophytosis, endplate sclerosis and disc space narrowing primarily involving T9/10-T12/L1. Paravertebral soft tissues are normal. IMPRESSION: Findings are relatively stable as compared with CT dated 2018. <Electronically signed by Camilo Scott > 02/15/21 1742
--- NOTE | 2021-02-15 17:48 | REP ---
INDICATION: hardwear T3, tingling LUE, severe pain cervical. COMPARISON: None. TECHNIQUE: AP, lateral, flexion/extension, open mouth and bilateral oblique views of the cervical spine FINDINGS: Alignment and lordosis maintained. Vertebral bodies intact. No acute fracture/compression injury or subluxation. No significant degenerative changes. C1-C2 articulation and odontoid process are normal. IMPRESSION: Normal, age-appropriate cervical spine radiograph series. <Electronically signed by Camilo Scott > 02/15/21 1723
[2021-02-15 18:16] VITALS: BP 135/91
[2021-02-15] MEDS ORDERED: ANEC4CRE3 TOP (18:17)
[2021-02-15] MEDS ORDERED: METH-1165 PO (18:17)
== END 2021-02-15 18:18 | disposition home or self-care (01) ==
LOC: M ED 15:20
DX: M54.2 Cervicalgia (principal); R20.2 Paresthesia of skin; Z98.1 Arthrodesis status; I10 Essential (primary) hypertension; F31.9 Bipolar disorder, unspecified; G40.909 Epilepsy, unspecified, not intractable, without status epilepticus; K21.9 Gastro-esophageal reflux disease without esophagitis; Z79.899 Other long term (current) drug therapy; Z88.8 Allergy status to other drugs, medicaments and biological substances; Z91.030 Bee allergy status

== ENCOUNTER 2021-06-21 18:18 | Emergency (ER) | payer OTHER ==
[~2021-06-21] VITALS: Ht 172.7 cm; Wt 131.8 kg
[~2021-06-21 18:18] MED LIST changes: +ANEC4CRE3 TOP; +METH-1165 PO
[2021-06-21 21:14] LABS: BASO # 0.1 10^3/uL (0.0-0.2); BASO % 1.1 % (0.0-1.0); EOS # 0.2 10^3/uL (0.0-0.5); EOS % 3.2 % (0.0-3.0); HEMATOCRIT 40.2 % (42.0-52.0); HEMOGLOBIN 13.3 g/dl (13.5-17.5); LYMPH # 0.7 10^3/uL (1.5-5.0); MEAN CORPUSCULAR HEMOGLOBIN 29.2 pg (27.0-33.0); MEAN CORPUSCULAR HGB CONC 33.1 g/dl (32.0-36.5); MEAN CORPUSCULAR VOLUME 88.4 fl (80.0-96.0); MONO # 0.6 10^3/uL (0.0-0.8); NEUTROPHILS # 4.1 10^3/uL (1.5-8.5); NEUTROPHILS % 73.2 % (36.0-66.0); PLATELET COUNT, AUTOMATED 260 10^3/uL (150-450); RED BLOOD COUNT 4.55 10^6/uL (4.30-6.10); WHITE BLOOD COUNT 5.6 10^3/uL (4.0-10.0)
[2021-06-21 21:25] LABS: INR 1.03
[2021-06-21 21:26] LABS: PARTIAL THROMBOPLASTIN TIME 25.7 SECONDS (25.9-37.0)
[2021-06-21 21:36] LABS: BLOOD UREA NITROGEN 14 MG/DL (7-18); CALCIUM LEVEL 8.2 MG/DL (8.5-10.1); CARBON DIOXIDE LEVEL 28 MEQ/L (21-32); CHLORIDE LEVEL 108 MEQ/L (98-107); CREATININE FOR GFR 1.06 MG/DL (0.70-1.30); GLOMERULAR FILTRATION RATE > 60.0 (>60); GLUCOSE, FASTING 100 MG/DL (70-100); MAGNESIUM LEVEL 2.1 MG/DL (1.8-2.4); POTASSIUM SERUM 4.1 MEQ/L (3.5-5.1); SODIUM LEVEL 142 MEQ/L (136-145)
[2021-06-21 21:44] LABS: MB/CK RELATIVE INDEX 0.75 (< OR =4)
[2021-06-21] MEDS ORDERED: ISOVUE-370 76% 100ML VIAL As Ordered ONE (21:51)
[2021-06-21] MEDS ORDERED: MIDAZOLAM INJ 2MG/2ML VIAL (J2250 PER 1MG) IV ONE (23:20)
[2021-06-22] MEDS ORDERED: MIDAZOLAM INJ 2MG/2ML VIAL (J2250 PER 1MG) IV ONE (01:05)
[2021-06-22 01:31] VITALS: BP 141/65
[2021-07-02] MEDS ORDERED: ABIL1INJ2 IM (09:07)
[2021-07-02] MEDS ORDERED: ARIP1TAB PO (09:18)
[2021-07-02] MEDS ORDERED: QUET200T2 PO (09:18)
[2021-07-02] MEDS ORDERED: CHLO125TA PO (09:18)
[2021-07-03] MEDS ORDERED: PRED10TA2 PO (13:57)
== END 2021-06-22 02:35 | disposition home or self-care (01) ==
LOC: M ED 18:18
DX: R07.89 Other chest pain (principal); R53.1 Weakness; M51.27 Other intervertebral disc displacement, lumbosacral region; F33.9 Major depressive disorder, recurrent, unspecified; Z79.899 Other long term (current) drug therapy; Z91.030 Bee allergy status; Z88.8 Allergy status to other drugs, medicaments and biological substances; F17.210 Nicotine dependence, cigarettes, uncomplicated
CPT/HCPCS: 70450; 70496; 70498; 72146; 72148; 80048; 82550; 82553; 83735; 85025; 85610; 85730; 93005; 96374; 99284; J2250; Q9967

== ENCOUNTER 2021-06-24 07:48 | Outpatient (CLI) | payer OTHER ==
[~2021-06-24] VITALS: Ht 172.7 cm; Wt 132.0 kg
[~2021-06-24 07:48] MED LIST changes: +ALBUTEROL 90 MCG/ACT 8GM HFA INHALER INH PRN; +ALBUTEROL SULFATE 2.5 MG/0.5 ML INH NEB SOLN INH PRN; +EPINEPHrine INJ 1 MG/ML 1ML AMP IM PRN; +NS 1,000 ML IV SCH; +diphenhydrAMINE 50MG/ML VIAL (J1200) IV PRN; +methylPREDNISolone 125MG 2ML VIAL IV PRN
[2021-06-24] MEDS ORDERED: BAMLANIVIMAB 700 MG, ETESEVIMAB 1,400 MG in NS 250 ML IV ONE (08:30)
[2021-06-24 08:35] VITALS: BP_SYST 145; BP_SYST 163; BP_DIAS 79; BP_DIAS 90
[2021-06-24 09:08] VITALS: BP 132/79
[2021-06-24 09:38] VITALS: BP 136/91
[2021-06-24 10:38] VITALS: BP 136/82
== END 2021-06-24 10:35 | disposition home or self-care (01) ==
LOC: M OPCLI4PR 07:48
PROVIDERS: ATTEND Physician Assistant Medical
DX: U07.1 COVID-19 (principal); Z88.8 Allergy status to other drugs, medicaments and biological substances; Z91.030 Bee allergy status

== ENCOUNTER → 2021-07-06 | Outpatient (REF) ==
[~2021-07-06] MED LIST changes: +ABIL1INJ2 IM; -ALBUTEROL 90 MCG/ACT 8GM HFA INHALER INH PRN; -ALBUTEROL SULFATE 2.5 MG/0.5 ML INH NEB SOLN INH PRN; +CHLO125TA PO; -EPINEPHrine INJ 1 MG/ML 1ML AMP IM PRN; -NS 1,000 ML IV SCH; +PRED10TA2 PO; +QUET200T2 PO; -diphenhydrAMINE 50MG/ML VIAL (J1200) IV PRN; -methylPREDNISolone 125MG 2ML VIAL IV PRN
== END ==
LOC: M LABSMTC 11:32
PROVIDERS: ATTEND Pediatrics
DX: Z11.52 Encounter for screening for COVID-19 (principal); Z20.822 Contact with and (suspected) exposure to COVID-19

== ENCOUNTER → 2021-08-25 | Outpatient (REF) | payer OTHER | LOC: M SFHCADAM 09:06 | PROVIDERS: ATTEND Family Medicine | DX: Z53.9 Procedure and treatment not carried out, unspecified reason (principal); U07.1 COVID-19; D50.8 Other iron deficiency anemias; E55.9 Vitamin D deficiency, unspecified; E53.8 Deficiency of other specified B group vitamins; I10 Essential (primary) hypertension; Z68.41 Body mass index [BMI] 40.0-44.9, adult; Z13.1 Encounter for screening for diabetes mellitus ==

== ENCOUNTER → 2021-09-02 | Outpatient (CLI) | payer OTHER ==
[2021-09-02 09:23] LABS: HEMATOCRIT 44.7 % (42.0-52.0); HEMOGLOBIN 15.3 g/dl (13.5-17.5); MEAN CORPUSCULAR HEMOGLOBIN 29.6 pg (27.0-33.0); MEAN CORPUSCULAR HGB CONC 34.2 g/dl (32.0-36.5); MEAN CORPUSCULAR VOLUME 86.5 fl (80.0-96.0); PLATELET COUNT, AUTOMATED 336 10^3/uL (150-450); RED BLOOD COUNT 5.17 10^6/uL (4.30-6.10)
[2021-09-02 09:57] LABS: ALBUMIN 4.2 GM/DL (3.2-5.2); ALT/SGPT 31 U/L (12-78); BILIRUBIN,TOTAL 0.5 MG/DL (0.2-1.0); BLOOD UREA NITROGEN 13 MG/DL (7-18); CALCIUM LEVEL 9.3 MG/DL (8.5-10.1); CARBON DIOXIDE LEVEL 30 MEQ/L (21-32); CHLORIDE LEVEL 107 MEQ/L (98-107); CHOLESTEROL LEVEL 260 MG/DL (<200); CHOLESTEROL RISK RATIO 4.727 (<5); CREATININE FOR GFR 1.17 MG/DL (0.70-1.30); FERRITIN 16 NG/ML (26-388); FREE T4 0.92 NG/DL (0.76-1.46); GLOMERULAR FILTRATION RATE > 60.0 (>60); GLUCOSE, FASTING 119 MG/DL (70-100); HDL CHOLESTEROL 55 MG/DL (>40); LDL CHOLESTEROL 140 MG/DL (<100); NON-HDL-C 205 MG/DL; SODIUM LEVEL 141 MEQ/L (136-145); TOTAL PROTEIN 7.5 GM/DL (6.4-8.2); TRIGLYCERIDES LEVEL 325 MG/DL (<150)
[2021-09-02 10:00] LABS: TOTAL 25(OH) VITAMIN D 10.9 NG/ML (30.0-100.0); VITAMIN B12 LEVEL 435 PG/ML (247-911)
[2021-09-02 10:08] LABS: HEMOGLOBIN A1c 5.6 %
== END ==
LOC: M LAB 08:33
PROVIDERS: ATTEND Family Medicine
DX: U07.1 COVID-19 (principal); D50.8 Other iron deficiency anemias; E55.9 Vitamin D deficiency, unspecified; I10 Essential (primary) hypertension; Z68.41 Body mass index [BMI] 40.0-44.9, adult; Z13.1 Encounter for screening for diabetes mellitus

== ENCOUNTER → 2021-09-02 | Outpatient (CLI) | payer OTHER ==
[2021-09-02 09:24] LABS: HEMATOCRIT 44.9 % (42.0-52.0); HEMOGLOBIN 15.1 g/dl (13.5-17.5); MEAN CORPUSCULAR HGB CONC 33.6 g/dl (32.0-36.5); MEAN CORPUSCULAR VOLUME 86.3 fl (80.0-96.0); PLATELET COUNT, AUTOMATED 303 10^3/uL (150-450); WHITE BLOOD COUNT 7.9 10^3/uL (4.0-10.0)
[2021-09-02 09:48] LABS: ALBUMIN 4.2 GM/DL (3.2-5.2); ALT/SGPT 35 U/L (12-78); BILIRUBIN,TOTAL 0.5 MG/DL (0.2-1.0); BLOOD UREA NITROGEN 13 MG/DL (7-18); CALCIUM LEVEL 9.5 MG/DL (8.5-10.1); CARBON DIOXIDE LEVEL 29 MEQ/L (21-32); CHLORIDE LEVEL 107 MEQ/L (98-107); CREATININE FOR GFR 1.21 MG/DL (0.70-1.30); GLOMERULAR FILTRATION RATE > 60.0 (>60); GLUCOSE, FASTING 115 MG/DL (70-100); MAGNESIUM LEVEL 2.3 MG/DL (1.8-2.4); SODIUM LEVEL 142 MEQ/L (136-145); TOTAL PROTEIN 7.6 GM/DL (6.4-8.2)
== END ==
LOC: M LAB 08:36
PROVIDERS: ATTEND Physician Assistant
DX: I10 Essential (primary) hypertension (principal)

== ENCOUNTER → 2021-09-25 | Outpatient (CLI) | payer OTHER | LOC: M PAIN 14:00 | PROVIDERS: ATTEND Nurse Practitioner Family | DX: M51.16 Intervertebral disc disorders with radiculopathy, lumbar region (principal); R73.03 Prediabetes; Z86.59 Personal history of other mental and behavioral disorders; Z98.84 Bariatric surgery status; Z88.8 Allergy status to other drugs, medicaments and biological substances; Z91.030 Bee allergy status; E66.01 Morbid (severe) obesity due to excess calories; Z68.42 Body mass index [BMI] 45.0-49.9, adult; Z79.899 Other long term (current) drug therapy ==

== ENCOUNTER 2021-12-18 19:24 | Emergency (ER) | payer OTHER ==
[~2021-12-18] VITALS: Ht 175.3 cm; Wt 137.0 kg
[2021-12-18] MEDS ORDERED: SPIR-10 PO (19:51)
[2021-12-18] MEDS ORDERED: GABA-1171 PO (19:51)
[2021-12-18 19:52] LABS: BASO # 0.1 10^3/uL (0.0-0.2); BASO % 0.7 % (0.0-1.0); EOS # 0.1 10^3/uL (0.0-0.5); EOS % 1.2 % (0.0-3.0); HEMATOCRIT 41.4 % (42.0-52.0); HEMOGLOBIN 14.3 g/dl (13.5-17.5); LYMPH # 2.3 10^3/uL (1.5-5.0); LYMPH % 22.9 % (24.0-44.0); MEAN CORPUSCULAR HEMOGLOBIN 30.2 pg (27.0-33.0); MEAN CORPUSCULAR HGB CONC 34.5 g/dl (32.0-36.5); MEAN CORPUSCULAR VOLUME 87.3 fl (80.0-96.0); MONO # 0.7 10^3/uL (0.0-0.8); MONO % 6.8 % (2.0-8.0); NEUTROPHILS # 6.8 10^3/uL (1.5-8.5); PLATELET COUNT, AUTOMATED 330 10^3/uL (150-450); RED BLOOD COUNT 4.74 10^6/uL (4.30-6.10)
[2021-12-18 20:03] LABS: INR 1.07; PROTHROMBIN TIME 14.3 SECONDS (12.7-14.5)
[2021-12-18 20:04] LABS: PARTIAL THROMBOPLASTIN TIME 27.5 SECONDS (25.9-37.0)
[2021-12-18 20:14] LABS: CK-MB VALUE MASS 3.2 NG/ML (<3.6); MB/CK RELATIVE INDEX 1.14 (< OR =4)
[2021-12-18] MEDS ORDERED: POTASSIUM CHLORIDE 10MEQ SR TABLET PO ONE (20:20)
[2021-12-18] MEDS ORDERED: NS 1,000 ML IV ONE ×2 (20:20)
[2021-12-18 22:01] VITALS: BP 143/70
== END 2021-12-18 22:28 | disposition home or self-care (01) ==
LOC: M ED 19:24
DX: R55 Syncope and collapse (principal); E86.0 Dehydration; F15.10 Other stimulant abuse, uncomplicated; I10 Essential (primary) hypertension; F31.9 Bipolar disorder, unspecified; Z98.84 Bariatric surgery status; Z91.030 Bee allergy status; Z88.8 Allergy status to other drugs, medicaments and biological substances; Z79.899 Other long term (current) drug therapy

== ENCOUNTER → 2022-05-05 | Outpatient (CLI) | payer OTHER ==
[~2022-05-05] MED LIST changes: +ABIL30TA4 PO; +NEUR300C PO; +SPIR-10 PO
== END ==
LOC: M LABSMTC 09:41
PROVIDERS: ATTEND Anesthesiology
DX: Z01.812 Encounter for preprocedural laboratory examination (principal); Z11.52 Encounter for screening for COVID-19

== ENCOUNTER → 2022-05-10 | Outpatient (CLI) | payer MEDICARE, OTHER ==
[~2022-05-10] MED LIST changes: +ISOVUE-M 300 61% 15ML VIAL As Ordered ONE; +LIDOCAINE 1% SDV 30ML VIAL As Ordered ONE; +NORCO, ANEXSIA 5/325MG TABLET (HYDROcodone/ACETAMINOPHEN) As Ordered ONE; +diazePAM 5MG TABLET As Ordered ONE; +methylPREDNISolone SUSP 40MG/ML 1ML VIAL (DEPO MEDROL) As Ordered ONE
== END ==
LOC: M PAIN 07:45
PROVIDERS: ATTEND Anesthesiology
DX: M51.16 Intervertebral disc disorders with radiculopathy, lumbar region (principal); F31.9 Bipolar disorder, unspecified; F41.9 Anxiety disorder, unspecified; K76.0 Fatty (change of) liver, not elsewhere classified; E55.9 Vitamin D deficiency, unspecified; R73.03 Prediabetes; E78.5 Hyperlipidemia, unspecified; Z87.442 Personal history of urinary calculi; Z98.84 Bariatric surgery status; Z79.899 Other long term (current) drug therapy; Z88.8 Allergy status to other drugs, medicaments and biological substances; Z91.030 Bee allergy status; Z91.018 Allergy to other foods
CPT/HCPCS: 62323; J1030; Q9967

== ENCOUNTER → 2022-05-17 | Outpatient (CLI) | payer OTHER ==
[~2022-05-17] MED LIST changes: -ISOVUE-M 300 61% 15ML VIAL As Ordered ONE; -LIDOCAINE 1% SDV 30ML VIAL As Ordered ONE; -NORCO, ANEXSIA 5/325MG TABLET (HYDROcodone/ACETAMINOPHEN) As Ordered ONE; -diazePAM 5MG TABLET As Ordered ONE; -methylPREDNISolone SUSP 40MG/ML 1ML VIAL (DEPO MEDROL) As Ordered ONE
== END ==
LOC: M OUTALCOH 10:00
PROVIDERS: ATTEND Psychiatry & Neurology Psychiatry
DX: Z13.39 Encounter for screening examination for other mental health and behavioral disorders (principal)

== ENCOUNTER 2022-06-18 08:40 | Outpatient (RCR) | payer OTHER | END 2022-06-26 | LOC: M OUTALCOH 08:40 | PROVIDERS: ATTEND Psychiatry & Neurology Psychiatry | DX: F10.20 Alcohol dependence, uncomplicated (principal); F14.10 Cocaine abuse, uncomplicated; F16.10 Hallucinogen abuse, uncomplicated ==

== ENCOUNTER → 2022-06-23 | Outpatient (CLI) | payer OTHER | LOC: M PAIN 14:00 → M TMPAIN 14:00 | PROVIDERS: ATTEND Anesthesiology | DX: G89.28 Other chronic postprocedural pain (principal); M54.50 Low back pain, unspecified; M51.16 Intervertebral disc disorders with radiculopathy, lumbar region; Z86.59 Personal history of other mental and behavioral disorders; Z98.84 Bariatric surgery status; Z88.8 Allergy status to other drugs, medicaments and biological substances; Z91.030 Bee allergy status; Z79.899 Other long term (current) drug therapy ==

== ENCOUNTER 2022-07-02 16:10 | Inpatient (IN) | payer OTHER ==
[~2022-07-02] VITALS: Ht 175.3 cm; Wt 127.3 kg
[2022-07-02] MEDS ORDERED: LORazepam 2 MG TAB PO PRN (16:35)
[2022-07-02] MEDS ORDERED: ONDANSETRON 4MG 2ML VIAL IV ONE (17:20)
[2022-07-02 17:47] LABS: HEMATOCRIT 40.6 % (42.0-52.0); HEMOGLOBIN 13.7 g/dl (13.5-17.5); MEAN CORPUSCULAR HEMOGLOBIN 30.7 pg (27.0-33.0); MEAN CORPUSCULAR HGB CONC 33.7 g/dl (32.0-36.5); PLATELET COUNT, AUTOMATED 256 10^3/uL (150-450); RED BLOOD COUNT 4.46 10^6/uL (4.30-6.10); WHITE BLOOD COUNT 7.5 10^3/uL (4.0-10.0)
[2022-07-02 17:50] LABS: ETHYL ALCOHOL (ETHANOL) 0.052 % (0.000-0.010)
[2022-07-02 17:52] LABS: ACETAMINOPHEN LEVEL < 2.0 UG/ML (10.0-20.0); BILIRUBIN,DIRECT < 0.1 MG/DL (<0.4); SALICYLATE LEVEL < 3.0 MG/DL (<30)
[2022-07-02 17:56] LABS: ALBUMIN 3.8 G/DL (3.2-5.2); ALKALINE PHOSPHATASE 88 U/L (46-116); ALT/SGPT 29 U/L (7.0-40); AST/SGOT 45 U/L (<34); BILIRUBIN,TOTAL 0.3 MG/DL (0.3-1.2); BLOOD UREA NITROGEN 13 MG/DL (9-23); CALCIUM LEVEL 8.4 MG/DL (8.5-10.1); CARBON DIOXIDE LEVEL 24 MMOL/L (20-31); CHLORIDE LEVEL 109 MMOL/L (98-107); CPK CREATINE PHOSPHOKINASE 293 U/L (46-171); CREATININE FOR GFR 1.21 MG/DL (0.70-1.30); GLOMERULAR FILTRATION RATE > 60.0 (>60); GLUCOSE, FASTING 89 MG/DL (60-100); SODIUM LEVEL 144 MMOL/L (136-145); TOTAL PROTEIN 6.9 G/DL (5.7-8.2)
[2022-07-02 20:14] LABS: AMPHETAMINES LEVEL URINE NEGATIVE (NEGATIVE); BARBITURATES URINE NEGATIVE (NEGATIVE); BENZODIAZEPINES URINE NEGATIVE (NEGATIVE); CANNABINOIDS URINE NEGATIVE (NEGATIVE); METHADONE URINE NEGATIVE (NEGATIVE); OPIATES URINE NEGATIVE (NEGATIVE); PHENCYCLIDINE URINE NEGATIVE (NEGATIVE)
[2022-07-02 20:18] LABS: COCAINE METABOLITE URINE POSITIVE (NEGATIVE)
[2022-07-02] MEDS ORDERED: THIAMINE 100 MG TAB PO SCH (21:00)
[2022-07-02] MEDS ORDERED: ACETAMINOPHEN TAB 650MG DOSE (2X325MG) PO PRN (21:45)
[2022-07-02] MEDS ORDERED: diphenhydrAMINE 50MG CAP PO PRN (21:45)
[2022-07-02] MEDS ORDERED: MOM 30ML SUSPENSION UDC PO PRN (21:45)
[2022-07-02] MEDS ORDERED: MAALOX 30 ML SUSP *UDC PO PRN (21:45)
[2022-07-02] MEDS ORDERED: QUET100T2 PO (22:09)
[2022-07-02] MEDS ORDERED: GABA-282 PO (22:09)
[2022-07-02] MEDS ORDERED: MED REC COMMENT (22:10)
[2022-07-02] MEDS ORDERED: HOME MED LIST COMPLETE! XX SCH (22:15)
[2022-07-02 23:00] VITALS: BP 142/86
[2022-07-02 23:01] VITALS: BP 142/86
[2022-07-03 06:34] VITALS: BP 134/75
[2022-07-03 06:35] VITALS: BP 134/75
[2022-07-03] MEDS: GABAPENTIN 300 MG CAP PO SCH ×3 (07:46→21:45)
[2022-07-03] MEDS: THIAMINE 100 MG TAB PO SCH ×2 (07:47→21:45)
[2022-07-03] MEDS: MULTIVITAMINS/MINERALS THERAP 1 TAB PO SCH (07:47)
[2022-07-03] MEDS: carBAMazepine XR 200 MG TAB PO SCH ×2 (07:47→21:45)
[2022-07-03] MEDS ORDERED: SPIRONOLACTONE 12.5MG PER 1/2 TABLET PO SCH (09:00)
[2022-07-03] MEDS ORDERED: FOLIC ACID 1MG TAB PO SCH (09:00)
[2022-07-03] MEDS ORDERED: MULTIVITAMINS/MINERALS THERAP 1 TAB PO SCH (09:00)
[2022-07-03] MEDS: CHLORTHALIDONE 12.5MG PER 1/2 TABLET PO SCH (09:24)
[2022-07-03] MEDS: FOLIC ACID 1MG TAB PO SCH (09:24)
[2022-07-03 14:25] VITALS: BP 138/88
[2022-07-03 14:44] VITALS: BP 138/88
[2022-07-03] MEDS: QUEtiapine FUMARATE 100 MG TAB PO SCH (21:45)
[2022-07-03 21:46] VITALS: BP 141/91
[2022-07-03] MEDS: LORazepam 2 MG TAB PO PRN (21:46)
[2022-07-04] VITALS (7 sets, daily range): BP systolic 109–153; BP diastolic 58–90
[2022-07-04 07:43] LABS: BLOOD UREA NITROGEN 13 MG/DL (9-23); CALCIUM LEVEL 8.1 MG/DL (8.5-10.1); CARBON DIOXIDE LEVEL 28 MMOL/L (20-31); CHLORIDE LEVEL 107 MMOL/L (98-107); CREATININE FOR GFR 1.08 MG/DL (0.70-1.30); GLOMERULAR FILTRATION RATE > 60.0 (>60); GLUCOSE, FASTING 88 MG/DL (60-100); POTASSIUM SERUM 3.9 MMOL/L (3.5-5.1); SODIUM LEVEL 142 MMOL/L (136-145)
[2022-07-04] MEDS: MULTIVITAMINS/MINERALS THERAP 1 TAB PO SCH (09:29)
[2022-07-04] MEDS: GABAPENTIN 300 MG CAP PO SCH ×3 (09:29→20:29)
[2022-07-04] MEDS: THIAMINE 100 MG TAB PO SCH ×2 (09:29→20:29)
[2022-07-04] MEDS: FOLIC ACID 1MG TAB PO SCH (09:29)
[2022-07-04] MEDS: CHLORTHALIDONE 12.5MG PER 1/2 TABLET PO SCH (09:29)
[2022-07-04] MEDS: carBAMazepine XR 200 MG TAB PO SCH ×2 (10:15→20:29)
[2022-07-04] MEDS: LORazepam 2 MG TAB PO PRN ×2 (12:51→15:34)
[2022-07-04] MEDS: QUEtiapine FUMARATE 100 MG TAB PO SCH (20:29)
[2022-07-04] MEDS: chlordiazePOXIDE 25 MG CAP PO SCH (20:29)
[2022-07-05 06:14] VITALS: BP 114/57
[2022-07-05 06:21] VITALS: BP 114/57
[2022-07-05] MEDS: carBAMazepine XR 200 MG TAB PO SCH ×2 (09:47→20:28)
[2022-07-05] MEDS: GABAPENTIN 300 MG CAP PO SCH ×3 (09:47→20:27)
[2022-07-05] MEDS: FOLIC ACID 1MG TAB PO SCH (09:47)
[2022-07-05] MEDS: CHLORTHALIDONE 12.5MG PER 1/2 TABLET PO SCH (09:47)
[2022-07-05] MEDS: THIAMINE 100 MG TAB PO SCH ×2 (09:47→20:27)
[2022-07-05] MEDS: MULTIVITAMINS/MINERALS THERAP 1 TAB PO SCH (09:47)
[2022-07-05] MEDS: chlordiazePOXIDE 25 MG CAP PO SCH ×3 (09:47→20:27)
[2022-07-05 14:15] VITALS: BP 138/78
[2022-07-05 18:14] VITALS: BP 117/72
[2022-07-05] MEDS: QUEtiapine FUMARATE 100 MG TAB PO SCH (20:27)
[2022-07-05 22:02] VITALS: BP 119/65
[2022-07-06 06:36] VITALS: BP 107/55
[2022-07-06 06:37] VITALS: BP 107/55
[2022-07-06] MEDS: chlordiazePOXIDE 25 MG CAP PO SCH ×2 (08:08→19:58)
[2022-07-06] MEDS: carBAMazepine XR 200 MG TAB PO SCH ×2 (08:08→19:57)
[2022-07-06] MEDS: GABAPENTIN 300 MG CAP PO SCH ×3 (08:08→19:57)
[2022-07-06] MEDS: MULTIVITAMINS/MINERALS THERAP 1 TAB PO SCH (08:08)
[2022-07-06] MEDS: CHLORTHALIDONE 12.5MG PER 1/2 TABLET PO SCH (08:08)
[2022-07-06] MEDS: FOLIC ACID 1MG TAB PO SCH (08:08)
[2022-07-06] MEDS ORDERED: LORazepam 1 MG TAB PO STA (10:57)
[2022-07-06] MEDS ORDERED: diphenhydrAMINE 50MG CAP PO STA (10:57)
[2022-07-06] MEDS ORDERED: ARIPiprazole MONOHYDRATE 400 MG INJ (ABILIFY)(FREE PSY INPT ONLY) IM ONE (12:00)
[2022-07-06 14:23] VITALS: BP 110/69
[2022-07-06 19:01] VITALS: BP 111/70
[2022-07-06] MEDS: QUEtiapine FUMARATE 100 MG TAB PO SCH (19:57)
[2022-07-06 21:17] VITALS: BP 129/71
[2022-07-07 06:04] VITALS: BP 122/64
[2022-07-07] MEDS: CHLORTHALIDONE 12.5MG PER 1/2 TABLET PO SCH (07:52)
[2022-07-07] MEDS: GABAPENTIN 300 MG CAP PO SCH (07:53)
[2022-07-07] MEDS: chlordiazePOXIDE 25 MG CAP PO SCH (07:53)
[2022-07-07] MEDS: carBAMazepine XR 200 MG TAB PO SCH (07:53)
[2022-07-07] MEDS ORDERED: CHLO25CA PO (11:33)
[2022-07-08] MEDS ORDERED: chlordiazePOXIDE 25 MG CAP PO SCH (09:00)
== END 2022-07-07 13:05 | disposition home or self-care (01) | DRG 753 ==
LOC: EDBD 16:10 → M ED 16:10 → M ED INP 21:43 → M PSY 22:45
PROVIDERS: ADMIT Student in an Organized Health Care Education/Training Program; ATTEND Student in an Organized Health Care Education/Training Program
DX: F31.81 Bipolar II disorder (principal); I10 Essential (primary) hypertension; R45.851 Suicidal ideations; F10.20 Alcohol dependence, uncomplicated; F15.10 Other stimulant abuse, uncomplicated; F11.10 Opioid abuse, uncomplicated; F60.89 Other specific personality disorders; Z56.0 Unemployment, unspecified; E78.5 Hyperlipidemia, unspecified; E66.9 Obesity, unspecified; Z79.899 Other long term (current) drug therapy; Z88.8 Allergy status to other drugs, medicaments and biological substances; Z91.030 Bee allergy status

== ENCOUNTER → 2022-07-13 | Outpatient (CLI) | payer OTHER ==
[~2022-07-13] MED LIST changes: +CHLO25CA PO; +MED REC COMMENT; +QUET100T2 PO
== END ==
LOC: M PAIN 16:15
PROVIDERS: ATTEND Anesthesiology
DX: M51.16 Intervertebral disc disorders with radiculopathy, lumbar region (principal); F31.9 Bipolar disorder, unspecified; F41.9 Anxiety disorder, unspecified; Z98.84 Bariatric surgery status; K76.0 Fatty (change of) liver, not elsewhere classified; E55.9 Vitamin D deficiency, unspecified; R73.03 Prediabetes; E78.5 Hyperlipidemia, unspecified; Z86.16 Personal history of COVID-19; Z79.899 Other long term (current) drug therapy; Z88.8 Allergy status to other drugs, medicaments and biological substances; Z91.018 Allergy to other foods; Z91.030 Bee allergy status

== ENCOUNTER 2022-09-02 04:30 | Emergency (ER) | payer OTHER ==
[2022-09-02] MEDS ORDERED: ACETAMINOPHEN 500 MG TAB PO ONE (06:50)
[2022-09-02 07:13] LABS: BASO % 0.6 % (0.0-1.0); EOS # 0.2 10^3/uL (0.0-0.5); EOS % 3.1 % (0.0-3.0); HEMATOCRIT 38.8 % (42.0-52.0); LYMPH # 1.9 10^3/uL (1.5-5.0); LYMPH % 27.4 % (24.0-44.0); MEAN CORPUSCULAR HEMOGLOBIN 29.3 pg (27.0-33.0); MEAN CORPUSCULAR HGB CONC 33.5 g/dl (32.0-36.5); MEAN CORPUSCULAR VOLUME 87.6 fl (80.0-96.0); MONO # 0.8 10^3/uL (0.0-0.8); MONO % 11.5 % (2.0-8.0); NEUTROPHILS % 57.1 % (36.0-66.0); PLATELET COUNT, AUTOMATED 220 10^3/uL (150-450); RED BLOOD COUNT 4.43 10^6/uL (4.30-6.10); WHITE BLOOD COUNT 7.1 10^3/uL (4.0-10.0)
[2022-09-02 07:23] LABS: ERYTHROCYTE SEDIMENTATION RATE < 1 mm/hr (0-15)
[2022-09-02 07:41] LABS: ALBUMIN 3.4 G/DL (3.2-5.2); ALKALINE PHOSPHATASE 91 U/L (46-116); ALT/SGPT 27 U/L (7.0-40); AST/SGOT 18 U/L (<34); BILIRUBIN,TOTAL 0.3 MG/DL (0.3-1.2); BLOOD UREA NITROGEN 18 MG/DL (9-23); CALCIUM LEVEL 8.2 MG/DL (8.5-10.1); CARBON DIOXIDE LEVEL 29 MMOL/L (20-31); CHLORIDE LEVEL 108 MMOL/L (98-107); CREATININE FOR GFR 1.05 MG/DL (0.70-1.30); GLOMERULAR FILTRATION RATE > 60.0 (>60); GLUCOSE, FASTING 84 MG/DL (60-100); POTASSIUM SERUM 3.6 MMOL/L (3.5-5.1); SODIUM LEVEL 143 MMOL/L (136-145); TOTAL PROTEIN 5.9 G/DL (5.7-8.2)
[2022-09-02 09:45] VITALS: BP 118/59
== END 2022-09-02 10:02 | disposition left against medical advice (07) ==
LOC: M ED 04:30
DX: S39.92XA Unspecified injury of lower back, initial encounter (principal); W19.XXXA Unspecified fall, initial encounter; Y92.000 Kitchen of unspecified non-institutional (private) residence as the place of occurrence of the external cause; Y93.01 Activity, walking, marching and hiking; Y99.8 Other external cause status; M51.9 Unspecified thoracic, thoracolumbar and lumbosacral intervertebral disc disorder; Z88.8 Allergy status to other drugs, medicaments and biological substances; Z91.030 Bee allergy status

== ENCOUNTER 2022-10-16 19:17 | Emergency (ER) | payer OTHER, MEDICARE ==
[~2022-10-16] VITALS: Ht 172.7 cm; Wt 141.4 kg
[2022-10-16 19:18] VITALS: BP 118/73
[2022-10-16] MEDS ORDERED: PROP80TA (19:28)
[2022-10-16] MEDS ORDERED: ALPR0.5T3 (19:28)
[2022-10-16 20:31] LABS: HEMATOCRIT 39.3 % (42.0-52.0); HEMOGLOBIN 13.6 g/dl (13.5-17.5); MEAN CORPUSCULAR HEMOGLOBIN 30.2 pg (27.0-33.0); MEAN CORPUSCULAR HGB CONC 34.6 g/dl (32.0-36.5); MEAN CORPUSCULAR VOLUME 87.3 fl (80.0-96.0); PLATELET COUNT, AUTOMATED 266 10^3/uL (150-450); WHITE BLOOD COUNT 7.8 10^3/uL (4.0-10.0)
[2022-10-16 20:44] LABS: AMPHETAMINES LEVEL URINE NEGATIVE (NEGATIVE); BARBITURATES URINE NEGATIVE (NEGATIVE); BENZODIAZEPINES URINE NEGATIVE (NEGATIVE); CANNABINOIDS URINE NEGATIVE (NEGATIVE); COCAINE METABOLITE URINE NEGATIVE (NEGATIVE); METHADONE URINE NEGATIVE (NEGATIVE); OPIATES URINE NEGATIVE (NEGATIVE); PHENCYCLIDINE URINE NEGATIVE (NEGATIVE)
[2022-10-16 20:53] LABS: ETHYL ALCOHOL (ETHANOL) < 0.003 % (0.000-0.010)
[2022-10-16 20:54] LABS: ACETAMINOPHEN LEVEL < 2.0 UG/ML (10.0-20.0)
[2022-10-16 20:55] LABS: SALICYLATE LEVEL < 3.0 MG/DL (<30)
[2022-10-16 20:57] LABS: THYROID STIMULATING HORMONE 1.964 uIU/ML (0.55-4.78)
[2022-10-16 20:58] LABS: ALBUMIN 3.5 G/DL (3.2-5.2); ALKALINE PHOSPHATASE 95 U/L (46-116); ALT/SGPT 20 U/L (7.0-40); AST/SGOT 22 U/L (<34); BILIRUBIN,DIRECT < 0.1 MG/DL (<0.4); BILIRUBIN,TOTAL 0.2 MG/DL (0.3-1.2); BLOOD UREA NITROGEN 16 MG/DL (9-23); CALCIUM LEVEL 8.3 MG/DL (8.5-10.1); CARBON DIOXIDE LEVEL 27 MMOL/L (20-31); CHLORIDE LEVEL 108 MMOL/L (98-107); CREATININE FOR GFR 1.01 MG/DL (0.70-1.30); GLOMERULAR FILTRATION RATE > 60.0 (>60); GLUCOSE, FASTING 127 MG/DL (60-100); POTASSIUM SERUM 3.3 MMOL/L (3.5-5.1); SODIUM LEVEL 140 MMOL/L (136-145); TOTAL PROTEIN 6.1 G/DL (5.7-8.2)
== END 2022-10-17 00:02 | disposition home or self-care (01) ==
LOC: M ED 19:17
DX: F41.9 Anxiety disorder, unspecified (principal); F32.A Depression, unspecified; Z98.84 Bariatric surgery status; Z91.030 Bee allergy status; Z88.8 Allergy status to other drugs, medicaments and biological substances; Z79.899 Other long term (current) drug therapy

== ENCOUNTER → 2022-11-02 | Outpatient (CLI) | payer OTHER ==
[~2022-11-02] MED LIST changes: +ALPR0.5T3; +PROP80TA
== END ==
LOC: M PAIN 14:15
PROVIDERS: ATTEND Nurse Practitioner Family
DX: M51.16 Intervertebral disc disorders with radiculopathy, lumbar region (principal); F31.9 Bipolar disorder, unspecified; F41.9 Anxiety disorder, unspecified; K76.0 Fatty (change of) liver, not elsewhere classified; E55.9 Vitamin D deficiency, unspecified; R73.03 Prediabetes; E78.5 Hyperlipidemia, unspecified; Z79.899 Other long term (current) drug therapy; Z91.030 Bee allergy status; Z88.8 Allergy status to other drugs, medicaments and biological substances; Z91.048 Other nonmedicinal substance allergy status

== ENCOUNTER 2023-01-27 21:07 | Emergency (ER) | payer MEDICARE, OTHER ==
[~2023-01-27] VITALS: Ht 172.7 cm; Wt 136.4 kg
[~2023-01-27 21:07] MED LIST changes: -GABA-283 PO; +GABA-284 PO
[2023-01-27] MEDS ORDERED: dexAMETHasone 20MG/5ML VIAL IV ONE (21:20)
[2023-01-27] MEDS ORDERED: NS 1,000 ML IV ONE (21:20)
[2023-01-27] MEDS ORDERED: NALOXONE 2MG/2ML SYRINGE IV STA (21:22)
[2023-01-27 21:48] LABS: BASO # 0.1 10^3/uL (0.0-0.2); BASO % 0.8 % (0.0-1.0); EOS # 0.2 10^3/uL (0.0-0.5); HEMATOCRIT 43.2 % (42.0-52.0); HEMOGLOBIN 15.1 g/dl (13.5-17.5); LYMPH # 2.3 10^3/uL (1.5-5.0); MEAN CORPUSCULAR HEMOGLOBIN 30.8 pg (27.0-33.0); MEAN CORPUSCULAR VOLUME 88.2 fl (80.0-96.0); MONO # 0.6 10^3/uL (0.0-0.8); MONO % 6.4 % (2.0-8.0); NEUTROPHILS # 5.5 10^3/uL (1.5-8.5); NEUTROPHILS % 63.3 % (36.0-66.0); PLATELET COUNT, AUTOMATED 287 10^3/uL (150-450); WHITE BLOOD COUNT 8.6 10^3/uL (4.0-10.0)
[2023-01-27 22:10] LABS: ETHYL ALCOHOL (ETHANOL) 0.006 % (0.000-0.010)
[2023-01-27 22:12] LABS: ACETAMINOPHEN LEVEL < 2.0 UG/ML (10.0-20.0); SALICYLATE LEVEL < 3.0 MG/DL (<30)
[2023-01-27 22:15] LABS: ALBUMIN 4.2 G/DL (3.2-5.2); ALKALINE PHOSPHATASE 111 U/L (46-116); ALT/SGPT 19 U/L (7.0-40); AST/SGOT 21 U/L (<34); BILIRUBIN,TOTAL 0.7 MG/DL (0.3-1.2); BLOOD UREA NITROGEN 9 MG/DL (9-23); CALCIUM LEVEL 9.1 MG/DL (8.5-10.1); CARBON DIOXIDE LEVEL 26 MMOL/L (20-31); CHLORIDE LEVEL 103 MMOL/L (98-107); CREATININE FOR GFR 0.94 MG/DL (0.70-1.30); GLOMERULAR FILTRATION RATE > 60.0 (>60); GLUCOSE, FASTING 84 MG/DL (60-100); POTASSIUM SERUM 3.3 MMOL/L (3.5-5.1); SODIUM LEVEL 142 MMOL/L (136-145); TOTAL PROTEIN 7.3 G/DL (5.7-8.2)
[2023-01-27 23:22] VITALS: O2SAT 96
[2023-01-27] MEDS ORDERED: POTASSIUM CHLORIDE 10MEQ SR TABLET PO ONE (23:25)
[2023-01-27] MEDS ORDERED: MAGNESIUM OXIDE 400MG TAB (MAG-OX) PO ONE (23:25)
[2023-01-27 23:30] VITALS: BP 152/84
[2023-01-27 23:34] VITALS: TEMP 98.7
[2023-01-28 09:53] LABS: MAGNESIUM LEVEL 2.3 MG/DL (1.8-2.4)
== END 2023-01-27 23:45 | disposition home or self-care (01) ==
LOC: M ED 21:07
DX: F19.10 Other psychoactive substance abuse, uncomplicated (principal); F17.210 Nicotine dependence, cigarettes, uncomplicated; Z88.8 Allergy status to other drugs, medicaments and biological substances; Z91.030 Bee allergy status; Z79.899 Other long term (current) drug therapy
CPT/HCPCS: 36415; 80053; 80143; 82077; 83735; 85025; 96374; 96375; 99285; J1100; J2310

== ENCOUNTER 2023-02-04 12:54 | Inpatient (IN) | payer MEDICARE, OTHER ==
[~2023-02-04] VITALS: Ht 172.7 cm; Wt 132.7 kg
[2023-02-04 14:09] LABS: HEMATOCRIT 42.9 % (42.0-52.0); HEMOGLOBIN 14.9 g/dl (13.5-17.5); MEAN CORPUSCULAR HEMOGLOBIN 30.8 pg (27.0-33.0); MEAN CORPUSCULAR HGB CONC 34.7 g/dl (32.0-36.5); MEAN CORPUSCULAR VOLUME 88.8 fl (80.0-96.0); PLATELET COUNT, AUTOMATED 274 10^3/uL (150-450); RED BLOOD COUNT 4.83 10^6/uL (4.30-6.10)
[2023-02-04 14:26] LABS: ETHYL ALCOHOL (ETHANOL) 0.014 % (0.000-0.010)
[2023-02-04 14:27] LABS: ACETAMINOPHEN LEVEL < 2.0 UG/ML (10.0-20.0)
[2023-02-04 14:28] LABS: SALICYLATE LEVEL < 3.0 MG/DL (<30)
[2023-02-04 14:30] LABS: THYROID STIMULATING HORMONE 2.817 uIU/ML (0.55-4.78)
[2023-02-04 14:36] LABS: ALBUMIN 3.9 G/DL (3.2-5.2); ALKALINE PHOSPHATASE 103 U/L (46-116); ALT/SGPT 27 U/L (7.0-40); AST/SGOT 16 U/L (<34); BILIRUBIN,DIRECT 0.1 MG/DL (<0.4); BILIRUBIN,TOTAL 0.3 MG/DL (0.3-1.2); BLOOD UREA NITROGEN 13 MG/DL (9-23); CARBON DIOXIDE LEVEL 23 MMOL/L (20-31); CHLORIDE LEVEL 109 MMOL/L (98-107); CREATININE FOR GFR 0.83 MG/DL (0.70-1.30); GLOMERULAR FILTRATION RATE > 60.0 (>60); GLUCOSE, FASTING 114 MG/DL (60-100); POTASSIUM SERUM 3.6 MMOL/L (3.5-5.1); SODIUM LEVEL 144 MMOL/L (136-145); TOTAL PROTEIN 6.9 G/DL (5.7-8.2)
[2023-02-04 15:12] LABS: AMPHETAMINES LEVEL URINE NEGATIVE (NEGATIVE); BENZODIAZEPINES URINE NEGATIVE (NEGATIVE)
[2023-02-04 15:13] LABS: BARBITURATES URINE NEGATIVE (NEGATIVE); CANNABINOIDS URINE NEGATIVE (NEGATIVE); METHADONE URINE NEGATIVE (NEGATIVE); OPIATES URINE NEGATIVE (NEGATIVE); PHENCYCLIDINE URINE NEGATIVE (NEGATIVE)
[2023-02-04 15:18] LABS: COCAINE METABOLITE URINE POSITIVE (NEGATIVE)
[2023-02-04] MEDS ORDERED: MED REC IN PROGRESS XX SCH (15:40)
[2023-02-04] MEDS ORDERED: HOME MED LIST COMPLETE! XX SCH ×2 (16:30→16:55)
[2023-02-04] MEDS ORDERED: diphenhydrAMINE 25MG CAP PO PRN (16:50)
[2023-02-04] MEDS ORDERED: LORazepam 2 MG TAB PO PRN (16:50)
[2023-02-04] MEDS ORDERED: MAALOX 30 ML SUSP *UDC PO PRN (16:50)
[2023-02-04] MEDS ORDERED: IBUPROFEN 400MG TAB PO PRN (16:50)
[2023-02-04] MEDS ORDERED: MOM 30ML SUSPENSION UDC PO PRN (16:50)
[2023-02-04] MEDS: THIAMINE 100 MG TAB PO SCH (17:00)
[2023-02-04 23:54] VITALS: BP 139/93; TEMP 97.1; O2SAT 97
[2023-02-05] VITALS (8 sets, daily range): BP systolic 109–194; BP diastolic 65–111; TEMP 96.9–97.1; O2SAT 89–98
[2023-02-05] MEDS: THIAMINE 100 MG TAB PO SCH ×2 (09:50→20:21)
[2023-02-05] MEDS: MULTIVITAMINS/MINERALS THERAP 1 TAB PO SCH (09:50)
[2023-02-05] MEDS: FOLIC ACID 1MG TAB PO SCH (09:50)
[2023-02-05] MEDS: CHLORTHALIDONE 25 MG TAB PO SCH (12:28)
[2023-02-05] MEDS: GABAPENTIN 300 MG CAP PO SCH ×3 (12:28→20:21)
[2023-02-05] MEDS ORDERED: cloNIDine 0.1MG TABLET PO ONE (22:00)
[2023-02-06 00:15] VITALS: BP 157/75
[2023-02-06 01:05] VITALS: BP 120/86
[2023-02-06] MEDS: ACETAMINOPHEN TAB 650MG DOSE (2X325MG) PO PRN (06:57)
[2023-02-06 06:58] VITALS: BP 109/68; TEMP 97; O2SAT 99
[2023-02-06 08:13] VITALS: BP 117/77
[2023-02-06] MEDS: THIAMINE 100 MG TAB PO SCH ×2 (08:30→21:48)
[2023-02-06] MEDS: CHLORTHALIDONE 25 MG TAB PO SCH (08:30)
[2023-02-06] MEDS: GABAPENTIN 300 MG CAP PO SCH ×3 (08:30→21:48)
[2023-02-06] MEDS: FOLIC ACID 1MG TAB PO SCH (08:30)
[2023-02-06] MEDS: MULTIVITAMINS/MINERALS THERAP 1 TAB PO SCH (08:30)
[2023-02-06] MEDS: carBAMazepine XR 200 MG TAB PO SCH ×2 (10:47→21:48)
[2023-02-06 16:00] VITALS: BP 140/84
[2023-02-06] MEDS: OLANZapine ORAL DISINTEGRATING TAB 5MG PO PRN (16:06)
[2023-02-06 18:23] VITALS: BP 140/80; TEMP 96.6; O2SAT 100
[2023-02-06] MEDS: QUEtiapine FUMARATE 100 MG TAB PO SCH (21:48)
[2023-02-07] MEDS: OLANZapine ORAL DISINTEGRATING TAB 5MG PO PRN ×2 (06:38→17:47)
[2023-02-07 06:52] VITALS: BP 138/94; TEMP 97.3; O2SAT 97
[2023-02-07] MEDS: FOLIC ACID 1MG TAB PO SCH (09:04)
[2023-02-07] MEDS: CHLORTHALIDONE 25 MG TAB PO SCH (09:04)
[2023-02-07] MEDS: MULTIVITAMINS/MINERALS THERAP 1 TAB PO SCH (09:04)
[2023-02-07] MEDS: carBAMazepine XR 200 MG TAB PO SCH ×2 (09:04→21:13)
[2023-02-07] MEDS: GABAPENTIN 300 MG CAP PO SCH ×3 (09:04→21:13)
[2023-02-07] MEDS: THIAMINE 100 MG TAB PO SCH (09:04)
[2023-02-07] MEDS ORDERED: ARIPiprazole MONOHYDRATE 400 MG INJ (ABILIFY)(FREE PSY INPT ONLY) IM ONE (11:30)
[2023-02-07] MEDS: DICLOFENAC EPOLAMINE 1.3% PATCH TOP SCH ×2 (13:39→21:00)
[2023-02-07 18:10] VITALS: BP 116/61; TEMP 97.2; O2SAT 98
[2023-02-07 19:25] VITALS: BP 116/61
[2023-02-07] MEDS: QUEtiapine FUMARATE 100 MG TAB PO SCH (21:13)
[2023-02-08] MEDS: ACETAMINOPHEN TAB 650MG DOSE (2X325MG) PO PRN (03:38)
[2023-02-08 06:36] VITALS: BP 123/64; TEMP 96.6; O2SAT 100
[2023-02-08 06:37] VITALS: BP 123/64
[2023-02-08] MEDS: DICLOFENAC EPOLAMINE 1.3% PATCH TOP SCH (09:00)
[2023-02-08] MEDS ORDERED: QUET100T2 PO (09:24)
[2023-02-08] MEDS ORDERED: CARB400T4 PO (09:24)
[2023-02-08] MEDS ORDERED: ABIL1INJ2 IM (09:24)
[2023-02-08 09:33] VITALS: BP 156/78
[2023-02-08] MEDS: MULTIVITAMINS/MINERALS THERAP 1 TAB PO SCH (09:38)
[2023-02-08] MEDS: carBAMazepine XR 200 MG TAB PO SCH (09:38)
[2023-02-08] MEDS: FOLIC ACID 1MG TAB PO SCH (09:38)
[2023-02-08] MEDS: GABAPENTIN 300 MG CAP PO SCH (09:38)
[2023-02-08] MEDS: CHLORTHALIDONE 25 MG TAB PO SCH (09:38)
== END 2023-02-08 16:14 | disposition home or self-care (01) | DRG 885 ==
LOC: M ED 12:54 → M ED INP 16:47 → M PSY 23:53
PROVIDERS: ADMIT Student in an Organized Health Care Education/Training Program; ATTEND Student in an Organized Health Care Education/Training Program
DX: F31.81 Bipolar II disorder (principal); R45.851 Suicidal ideations; F10.139 Alcohol abuse with withdrawal, unspecified; F14.10 Cocaine abuse, uncomplicated; F15.159 Other stimulant abuse with stimulant-induced psychotic disorder, unspecified; F60.9 Personality disorder, unspecified; M54.9 Dorsalgia, unspecified; G89.29 Other chronic pain; F41.9 Anxiety disorder, unspecified; K76.0 Fatty (change of) liver, not elsewhere classified; E55.9 Vitamin D deficiency, unspecified; R73.03 Prediabetes; E66.9 Obesity, unspecified; Z79.899 Other long term (current) drug therapy; Z20.822 Contact with and (suspected) exposure to COVID-19; Z88.8 Allergy status to other drugs, medicaments and biological substances; Z91.030 Bee allergy status

== ENCOUNTER 2023-03-12 19:18 | Emergency (ER) | payer MEDICARE, OTHER ==
[~2023-03-12] VITALS: Ht 172.7 cm; Wt 136.9 kg
[~2023-03-12 19:18] MED LIST changes: -MIRT-62 PO; +MIRT-88 PO
[2023-03-12 19:19] VITALS: BP 174/97; TEMP 99.5; O2SAT 96
[2023-03-12 20:09] LABS: HEMATOCRIT 39.1 % (42.0-52.0); HEMOGLOBIN 13.8 g/dl (13.5-17.5); MEAN CORPUSCULAR HEMOGLOBIN 30.9 pg (27.0-33.0); MEAN CORPUSCULAR HGB CONC 35.3 g/dl (32.0-36.5); MEAN CORPUSCULAR VOLUME 87.7 fl (80.0-96.0); PLATELET COUNT, AUTOMATED 243 10^3/uL (150-450); RED BLOOD COUNT 4.46 10^6/uL (4.30-6.10); WHITE BLOOD COUNT 8.4 10^3/uL (4.0-10.0)
[2023-03-12 20:33] LABS: BARBITURATES URINE NEGATIVE (NEGATIVE); BENZODIAZEPINES URINE NEGATIVE (NEGATIVE); CANNABINOIDS URINE NEGATIVE (NEGATIVE); METHADONE URINE NEGATIVE (NEGATIVE); OPIATES URINE NEGATIVE (NEGATIVE); PHENCYCLIDINE URINE NEGATIVE (NEGATIVE)
[2023-03-12 20:34] LABS: ETHYL ALCOHOL (ETHANOL) 0.037 % (0.000-0.010)
[2023-03-12 20:35] LABS: ACETAMINOPHEN LEVEL < 2.0 UG/ML (10.0-20.0); SALICYLATE LEVEL < 3.0 MG/DL (<30)
[2023-03-12 20:36] LABS: ALBUMIN 3.8 G/DL (3.2-5.2); ALKALINE PHOSPHATASE 103 U/L (46-116); ALT/SGPT 31 U/L (7.0-40); AST/SGOT 35 U/L (<34); BILIRUBIN,DIRECT 0.2 MG/DL (<0.4); BILIRUBIN,TOTAL 0.7 MG/DL (0.3-1.2); BLOOD UREA NITROGEN 13 MG/DL (9-23); CALCIUM LEVEL 8.8 MG/DL (8.5-10.1); CARBON DIOXIDE LEVEL 20 MMOL/L (20-31); CHLORIDE LEVEL 107 MMOL/L (98-107); CREATININE FOR GFR 0.87 MG/DL (0.70-1.30); GLOMERULAR FILTRATION RATE > 60.0 (>60); GLUCOSE, FASTING 163 MG/DL (60-100); POTASSIUM SERUM 3.1 MMOL/L (3.5-5.1); SODIUM LEVEL 142 MMOL/L (136-145); TOTAL PROTEIN 6.6 G/DL (5.7-8.2)
[2023-03-12 20:38] LABS: AMPHETAMINES LEVEL URINE POSITIVE (NEGATIVE); COCAINE METABOLITE URINE POSITIVE (NEGATIVE)
[2023-03-12 20:39] LABS: THYROID STIMULATING HORMONE 2.615 uIU/ML (0.55-4.78)
== END 2023-03-12 21:50 | disposition home or self-care (01) ==
LOC: M ED 19:18
DX: F19.10 Other psychoactive substance abuse, uncomplicated (principal); F10.10 Alcohol abuse, uncomplicated; F32.A Depression, unspecified; F31.9 Bipolar disorder, unspecified; Z91.030 Bee allergy status; Z88.8 Allergy status to other drugs, medicaments and biological substances; Z79.891 Long term (current) use of opiate analgesic; Z79.899 Other long term (current) drug therapy

== ENCOUNTER 2023-04-04 22:18 | Emergency (ER) | payer MEDICARE, OTHER ==
[~2023-04-04] VITALS: Ht 172.7 cm; Wt 138.6 kg
[2023-04-04 22:19] VITALS: BP 155/95; TEMP 98.1; O2SAT 99
[2023-04-04] MEDS ORDERED: PROP40TA62 (22:25)
== END 2023-04-05 02:33 | disposition left against medical advice (07) ==
LOC: M ED 22:18
DX: Z53.21 Procedure and treatment not carried out due to patient leaving prior to being seen by health care provider (principal)

== ENCOUNTER → 2023-04-08 | Outpatient (CLI) | payer OTHER ==
[~2023-04-08] MED LIST changes: +PROP40TA62
== END ==
LOC: M PAIN 09:15
PROVIDERS: ATTEND Anesthesiology
DX: Z53.29 Procedure and treatment not carried out because of patient's decision for other reasons (principal)

== ENCOUNTER 2023-06-14 10:01 | Emergency (ER) | payer MEDICAID, MEDICARE, OTHER ==
[~2023-06-14] VITALS: Ht 172.7 cm; Wt 138.2 kg
[2023-06-14] MEDS ORDERED: KETOROLAC 30 MG/ML 1ML VIAL IV ONE (12:10)
[2023-06-14] MEDS ORDERED: ONDANSETRON 4MG 2ML VIAL IV ONE (12:10)
[2023-06-14 12:56] LABS: BASO # 0.1 10^3/uL (0.0-0.2); BASO % 0.8 % (0.0-1.0); EOS # 0.2 10^3/uL (0.0-0.5); EOS % 3.7 % (0.0-3.0); HEMOGLOBIN 14.1 g/dl (13.5-17.5); LYMPH % 30.3 % (24.0-44.0); MEAN CORPUSCULAR HEMOGLOBIN 31.1 pg (27.0-33.0); MEAN CORPUSCULAR HGB CONC 34.4 g/dl (32.0-36.5); MEAN CORPUSCULAR VOLUME 90.5 fl (80.0-96.0); MONO # 0.5 10^3/uL (0.0-0.8); MONO % 8.2 % (2.0-8.0); NEUTROPHILS # 3.7 10^3/uL (1.5-8.5); NEUTROPHILS % 56.7 % (36.0-66.0); PLATELET COUNT, AUTOMATED 248 10^3/uL (150-450); RED BLOOD COUNT 4.53 10^6/uL (4.30-6.10); WHITE BLOOD COUNT 6.4 10^3/uL (4.0-10.0)
[2023-06-14 13:13] LABS: ALBUMIN 3.2 G/DL (3.2-5.2); BILIRUBIN,DIRECT 0.1 MG/DL (<0.4); BILIRUBIN,TOTAL 0.3 MG/DL (0.3-1.2); TOTAL PROTEIN 5.9 G/DL (5.7-8.2)
[2023-06-14 13:21] VITALS: BP 109/58; TEMP 98; O2SAT 99
== END 2023-06-14 14:25 | disposition home or self-care (01) ==
LOC: M ED 10:01
DX: R10.9 Unspecified abdominal pain (principal); K21.9 Gastro-esophageal reflux disease without esophagitis; I10 Essential (primary) hypertension; Z87.442 Personal history of urinary calculi; Z98.84 Bariatric surgery status; Z79.899 Other long term (current) drug therapy; Z88.5 Allergy status to narcotic agent; Z91.030 Bee allergy status
CPT/HCPCS: 74176; 80047; 80076; 81001; 83690; 85025; 96374; 96375; 99284; J1885; J2405

== ENCOUNTER 2023-06-24 08:30 | Inpatient (IN) | payer MEDICARE ==
[~2023-06-24] VITALS: Ht 172.7 cm; Wt 136.6 kg
[2023-06-24] MEDS ORDERED: MULTIVITAMINS/MINERALS THERAP 1 TAB PO SCH (09:00)
[2023-06-24] MEDS ORDERED: FOLIC ACID 1MG TAB PO SCH (09:00)
[2023-06-24] MEDS ORDERED: THIAMINE 100 MG TAB PO SCH (09:00)
[2023-06-24] MEDS ORDERED: LORazepam 2 MG TAB PO PRN (09:10)
[2023-06-24 09:29] LABS: BASO # 0.1 10^3/uL (0.0-0.2); BASO % 0.7 % (0.0-1.0); EOS # 0.3 10^3/uL (0.0-0.5); EOS % 2.6 % (0.0-3.0); HEMATOCRIT 43.3 % (42.0-52.0); LYMPH # 2.2 10^3/uL (1.5-5.0); LYMPH % 23.4 % (24.0-44.0); MEAN CORPUSCULAR HEMOGLOBIN 31.2 pg (27.0-33.0); MEAN CORPUSCULAR HGB CONC 34.6 g/dl (32.0-36.5); MONO # 0.9 10^3/uL (0.0-0.8); NEUTROPHILS # 6.1 10^3/uL (1.5-8.5); PLATELET COUNT, AUTOMATED 274 10^3/uL (150-450); RED BLOOD COUNT 4.81 10^6/uL (4.30-6.10); WHITE BLOOD COUNT 9.5 10^3/uL (4.0-10.0)
[2023-06-24 10:15] LABS: ETHYL ALCOHOL (ETHANOL) < 0.003 % (0.000-0.010)
[2023-06-24 10:16] LABS: AMPHETAMINES LEVEL URINE NEGATIVE (NEGATIVE); BARBITURATES URINE NEGATIVE (NEGATIVE); BENZODIAZEPINES URINE NEGATIVE (NEGATIVE); CANNABINOIDS URINE NEGATIVE (NEGATIVE); METHADONE URINE NEGATIVE (NEGATIVE); OPIATES URINE NEGATIVE (NEGATIVE); PHENCYCLIDINE URINE NEGATIVE (NEGATIVE)
[2023-06-24 10:16] LABS: ALBUMIN 4.2 G/DL (3.2-5.2); ALKALINE PHOSPHATASE 99 U/L (46-116); ALT/SGPT 28 U/L (7.0-40); AST/SGOT 29 U/L (<34); BILIRUBIN,DIRECT 0.4 MG/DL (<0.4); BILIRUBIN,TOTAL 1.3 MG/DL (0.3-1.2); BLOOD UREA NITROGEN 24 MG/DL (9-23); CARBON DIOXIDE LEVEL 26 MMOL/L (20-31); CHLORIDE LEVEL 103 MMOL/L (98-107); CPK CREATINE PHOSPHOKINASE 582 U/L (46-171); CREATININE FOR GFR 1.02 MG/DL (0.70-1.30); GLOMERULAR FILTRATION RATE > 60.0 (>60); GLUCOSE, FASTING 126 MG/DL (60-100); SALICYLATE LEVEL < 3.0 MG/DL (<30); SODIUM LEVEL 138 MMOL/L (136-145); TOTAL PROTEIN 7.1 G/DL (5.7-8.2)
[2023-06-24 10:17] LABS: COCAINE METABOLITE URINE POSITIVE (NEGATIVE)
[2023-06-24 10:19] LABS: THYROID STIMULATING HORMONE 2.143 uIU/ML (0.55-4.78)
[2023-06-24] MEDS ORDERED: NS 1,000 ML IV ONE (11:20)
[2023-06-24] MEDS ORDERED: MAALOX 30 ML SUSP *UDC PO PRN (15:50)
[2023-06-24] MEDS ORDERED: IBUPROFEN 400MG TAB PO PRN (15:50)
[2023-06-24] MEDS ORDERED: MOM 30ML SUSPENSION UDC PO PRN (15:50)
[2023-06-24] MEDS ORDERED: ACETAMINOPHEN TAB 650MG DOSE (2X325MG) PO PRN (15:50)
[2023-06-24] MEDS ORDERED: traZODone 50 MG TAB PO PRN (15:50)
[2023-06-24 16:19] VITALS: BP 122/72; TEMP 97.1; O2SAT 99
[2023-06-24] MEDS ORDERED: HOME MED LIST COMPLETE! XX SCH (16:25)
[2023-06-24 17:15] VITALS: BP 122/72
[2023-06-24] MEDS: THIAMINE 100 MG TAB PO SCH (20:34)
[2023-06-25 06:16] VITALS: BP 160/104
[2023-06-25 06:35] VITALS: BP 160/104; TEMP 97.3; O2SAT 98
[2023-06-25] MEDS: FOLIC ACID 1MG TAB PO SCH (09:14)
[2023-06-25] MEDS: MULTIVITAMINS/MINERALS THERAP 1 TAB PO SCH (09:15)
[2023-06-25] MEDS: THIAMINE 100 MG TAB PO SCH ×2 (09:15→20:40)
[2023-06-25 15:08] VITALS: BP 139/88
[2023-06-25 15:13] VITALS: BP 139/88; TEMP 97.3; O2SAT 96
[2023-06-25] MEDS: GABAPENTIN 300 MG CAP PO SCH ×2 (16:26→20:39)
[2023-06-25] MEDS: carBAMazepine XR 200 MG TAB PO SCH (20:39)
[2023-06-25] MEDS: risperiDONE 0.5 MG TAB PO SCH (20:39)
[2023-06-25] MEDS: QUEtiapine FUMARATE 100 MG TAB PO SCH (20:39)
[2023-06-25 20:42] VITALS: BP 164/84
[2023-06-26 06:34] VITALS: BP 138/80; TEMP 98.1; O2SAT 99
[2023-06-26 06:39] VITALS: BP 138/80
[2023-06-26 07:35] LABS: CHOLESTEROL RISK RATIO 4.94 (<5); HDL CHOLESTEROL 37.4 MG/DL (>40); LDL CHOLESTEROL 117.8 MG/DL (<100); NON-HDL-C 147.6 MG/DL
[2023-06-26] MEDS: carBAMazepine XR 200 MG TAB PO SCH ×2 (08:27→20:32)
[2023-06-26] MEDS: FOLIC ACID 1MG TAB PO SCH (08:28)
[2023-06-26] MEDS: PROPRANOLOL 20 MG TAB PO SCH (08:28)
[2023-06-26] MEDS: THIAMINE 100 MG TAB PO SCH ×2 (08:28→20:32)
[2023-06-26] MEDS: NALTREXONE 50 MG TAB PO SCH (08:28)
[2023-06-26] MEDS: risperiDONE 0.5 MG TAB PO SCH (08:28)
[2023-06-26] MEDS: GABAPENTIN 300 MG CAP PO SCH ×3 (08:28→20:32)
[2023-06-26] MEDS: MULTIVITAMINS/MINERALS THERAP 1 TAB PO SCH (08:28)
[2023-06-26] MEDS: CHLORTHALIDONE 12.5MG PER 1/2 TABLET PO SCH (08:28)
[2023-06-26 14:00] VITALS: BP 141/86
[2023-06-26 15:15] VITALS: BP 141/86; TEMP 97.7
[2023-06-26] MEDS ORDERED: OLANZapine 5 MG TAB PO STA (17:49)
[2023-06-26] MEDS: diphenhydrAMINE 25MG CAP PO PRN (17:56)
[2023-06-26 18:12] VITALS: BP 146/100
[2023-06-26] MEDS: LORazepam 2 MG TAB PO PRN ×2 (18:33→20:00)
[2023-06-26 19:40] VITALS: BP 141/87
[2023-06-26] MEDS: risperiDONE 1 MG TAB PO SCH (20:32)
[2023-06-26] MEDS: QUEtiapine FUMARATE 100 MG TAB PO SCH (20:32)
[2023-06-27 04:40] VITALS: BP 133/85; TEMP 97.5; O2SAT 98
[2023-06-27] MEDS: PROPRANOLOL 20 MG TAB PO SCH (08:41)
[2023-06-27] MEDS: NALTREXONE 50 MG TAB PO SCH (08:41)
[2023-06-27] MEDS: THIAMINE 100 MG TAB PO SCH (08:41)
[2023-06-27] MEDS: carBAMazepine XR 200 MG TAB PO SCH ×2 (08:41→20:55)
[2023-06-27] MEDS: CHLORTHALIDONE 12.5MG PER 1/2 TABLET PO SCH (08:41)
[2023-06-27] MEDS: MULTIVITAMINS/MINERALS THERAP 1 TAB PO SCH (08:41)
[2023-06-27] MEDS: FOLIC ACID 1MG TAB PO SCH (08:41)
[2023-06-27] MEDS: risperiDONE 1 MG TAB PO SCH ×2 (08:41→20:53)
[2023-06-27] MEDS: GABAPENTIN 300 MG CAP PO SCH ×3 (08:41→20:54)
[2023-06-27] MEDS: diphenhydrAMINE 25MG CAP PO PRN (08:42)
[2023-06-27 12:59] VITALS: BP 118/72; TEMP 97.9; O2SAT 97
[2023-06-27 13:01] VITALS: BP 118/72
[2023-06-27] MEDS: QUEtiapine FUMARATE 100 MG TAB PO SCH (20:53)
[2023-06-28 02:00] VITALS: BP 129/82
[2023-06-28 07:00] VITALS: BP 113/67; TEMP 97.8; O2SAT 98
[2023-06-28 07:13] LABS: APPEARANCE, URINE CLEAR (CLEAR); BACTERIA, URINE AUTO NEGATIVE (NEGATIVE); BILIRUBIN, URINE AUTO NEGATIVE (NEGATIVE); BLOOD, URINE BLOOD NEGATIVE (NEGATIVE); COLOR, URINE YELLOW (YELLOW); GLUCOSE, URINE (UA) AUTO NEGATIVE (NEGATIVE); KETONE, URINE AUTO NEGATIVE (NEGATIVE); LEUKOCYTE ESTERASE, URINE AUTO NEGATIVE (NEGATIVE); MUCUS, URINE SMALL (NEGATIVE); NITRITE, URINE AUTO NEGATIVE (NEGATIVE); PROTEIN, URINE AUTO NEGATIVE (NEGATIVE); RBC, URINE AUTO 0 /HPF (0-3); SPECIFIC GRAVITY URINE AUTO 1.024 (1.002-1.035); SQUAMOUS EPITHELIAL CELL UR AU 1 /HPF (0-6); WBC, URINE AUTO 2 /HPF (0-3)
[2023-06-28] MEDS ORDERED: diphenhydrAMINE 50MG CAP PO ONE (09:20)
[2023-06-28] MEDS ORDERED: LORazepam 2 MG TAB PO ONE (09:20)
[2023-06-28 09:32] VITALS: BP 146/82
[2023-06-28] MEDS: CHLORTHALIDONE 12.5MG PER 1/2 TABLET PO SCH (09:32)
[2023-06-28] MEDS: PROPRANOLOL 20 MG TAB PO SCH (09:32)
[2023-06-28] MEDS: NALTREXONE 50 MG TAB PO SCH (09:33)
[2023-06-28] MEDS: MULTIVITAMINS/MINERALS THERAP 1 TAB PO SCH (09:33)
[2023-06-28] MEDS: FOLIC ACID 1MG TAB PO SCH (09:33)
[2023-06-28] MEDS: risperiDONE 1 MG TAB PO SCH (09:33)
[2023-06-28] MEDS: carBAMazepine XR 200 MG TAB PO SCH (09:33)
[2023-06-28] MEDS: GABAPENTIN 300 MG CAP PO SCH (09:33)
[2023-06-28] MEDS ORDERED: RISP-8 PO (09:45)
[2023-06-28] MEDS ORDERED: NALT50TA4 PO (09:45)
== END 2023-06-28 12:29 | disposition home or self-care (01) | DRG 885 ==
LOC: M ED 08:30 → M ED INP 15:48 → M PSY 16:34
PROVIDERS: ADMIT Student in an Organized Health Care Education/Training Program; ATTEND Student in an Organized Health Care Education/Training Program
DX: F31.9 Bipolar disorder, unspecified (principal); R45.851 Suicidal ideations; F14.10 Cocaine abuse, uncomplicated; F60.2 Antisocial personality disorder; Z88.8 Allergy status to other drugs, medicaments and biological substances; F17.200 Nicotine dependence, unspecified, uncomplicated; F60.81 Narcissistic personality disorder; M54.50 Low back pain, unspecified; Z91.030 Bee allergy status; Z79.899 Other long term (current) drug therapy

== ENCOUNTER 2023-07-27 07:25 | Emergency (ER) | payer MEDICAID, MEDICARE ==
[~2023-07-27] VITALS: Ht 172.7 cm; Wt 143.9 kg
[~2023-07-27 07:25] MED LIST changes: -CHLO25CA PO; +CHLO25CA10 PO; +RISP-105 PO; -RISP-8 PO
[2023-07-27] MEDS ORDERED: NS 1,000 ML IV ONE (08:00)
[2023-07-27] MEDS ORDERED: MORPHINE 4 MG/ML 1ML VIAL IV ONE (08:05)
[2023-07-27] MEDS ORDERED: CLON0.5T2 (08:27)
[2023-07-27 08:31] LABS: BASO # 0.1 10^3/uL (0.0-0.2); BASO % 0.8 % (0.0-1.0); EOS # 0.3 10^3/uL (0.0-0.5); EOS % 3.7 % (0.0-3.0); HEMATOCRIT 37.8 % (42.0-52.0); HEMOGLOBIN 13.1 g/dl (13.5-17.5); LYMPH # 2.8 10^3/uL (1.5-5.0); LYMPH % 35.1 % (24.0-44.0); MEAN CORPUSCULAR HEMOGLOBIN 31.2 pg (27.0-33.0); MEAN CORPUSCULAR HGB CONC 34.7 g/dl (32.0-36.5); MONO # 0.5 10^3/uL (0.0-0.8); MONO % 6.6 % (2.0-8.0); NEUTROPHILS # 4.2 10^3/uL (1.5-8.5); NEUTROPHILS % 53.4 % (36.0-66.0); PLATELET COUNT, AUTOMATED 246 10^3/uL (150-450); WHITE BLOOD COUNT 7.8 10^3/uL (4.0-10.0)
[2023-07-27 08:43] LABS: INR 1.12; PARTIAL THROMBOPLASTIN TIME 25.5 SECONDS (24.8-34.2); PROTHROMBIN TIME 14.1 SECONDS (12.5-14.5)
[2023-07-27 08:55] LABS: CK-MB VALUE MASS < 1.0 NG/ML (<3.6); LIPASE 36 U/L (12-53)
[2023-07-27 08:57] LABS: ALBUMIN 3.1 G/DL (3.2-5.2); ALKALINE PHOSPHATASE 84 U/L (46-116); ALT/SGPT 39 U/L (7.0-40); AST/SGOT 23 U/L (<34); BILIRUBIN,DIRECT 0.1 MG/DL (<0.4); BILIRUBIN,TOTAL 0.4 MG/DL (0.3-1.2); BLOOD UREA NITROGEN 15 MG/DL (9-23); CALCIUM LEVEL 8.3 MG/DL (8.5-10.1); CARBON DIOXIDE LEVEL 25 MMOL/L (20-31); CHLORIDE LEVEL 111 MMOL/L (98-107); CPK CREATINE PHOSPHOKINASE 92 U/L (46-171); GLOMERULAR FILTRATION RATE > 60.0 (>60); GLUCOSE, FASTING 122 MG/DL (60-100); MB/CK RELATIVE INDEX 1.08 (< OR =4); POTASSIUM SERUM 3.7 MMOL/L (3.5-5.1); SODIUM LEVEL 142 MMOL/L (136-145); TOTAL PROTEIN 5.8 G/DL (5.7-8.2)
[2023-07-27] MEDS ORDERED: ISOVUE-370 76% 100ML VIAL As Ordered ONE (09:22)
[2023-07-27 09:47] VITALS: BP 138/88; TEMP 96.5; O2SAT 98
== END 2023-07-27 10:27 | disposition home or self-care (01) ==
LOC: M ED 07:25
DX: R23.3 Spontaneous ecchymoses (principal); K21.9 Gastro-esophageal reflux disease without esophagitis; I10 Essential (primary) hypertension; F10.130 Alcohol abuse with withdrawal, uncomplicated; F31.9 Bipolar disorder, unspecified; F19.10 Other psychoactive substance abuse, uncomplicated; Z79.899 Other long term (current) drug therapy; Z91.030 Bee allergy status; Z88.8 Allergy status to other drugs, medicaments and biological substances
CPT/HCPCS: 74177; 80048; 80076; 81001; 82550; 82553; 83605; 83690; 84484; 85025; 85610; 85730; 86140; 93005; 96361; 96374; 99284; Q9967

== ENCOUNTER 2024-01-13 21:17 | Inpatient (IN) | payer MEDICAID, MEDICARE, OTHER ==
[~2024-01-13] VITALS: Ht 175.3 cm; Wt 136.0 kg
[~2024-01-13 21:17] MED LIST changes: +CARB400T11 PO; -CARB400T4 PO; +CLON0.5T2 PO
[2024-01-13 22:31] LABS: HEMATOCRIT 45.3 % (42.0-52.0); HEMOGLOBIN 15.9 g/dl (13.5-17.5); MEAN CORPUSCULAR HEMOGLOBIN 31.1 pg (27.0-33.0); MEAN CORPUSCULAR HGB CONC 35.1 g/dl (32.0-36.5); MEAN CORPUSCULAR VOLUME 88.6 fl (80.0-96.0); PLATELET COUNT, AUTOMATED 311 10^3/uL (150-450); RED BLOOD COUNT 5.11 10^6/uL (4.30-6.10); WHITE BLOOD COUNT 9.5 10^3/uL (4.0-10.0)
[2024-01-13] MEDS ORDERED: PROP60TA14 PO (22:36)
[2024-01-13] MEDS ORDERED: ARIP1TAB43 PO (22:36)
[2024-01-13] MEDS ORDERED: QUET100T2 PO (22:36)
[2024-01-13] MEDS ORDERED: HOME MED LIST COMPLETE! XX SCH (22:40)
[2024-01-13 22:51] LABS: ETHYL ALCOHOL (ETHANOL) 0.011 % (0.000-0.010)
[2024-01-13 22:52] LABS: ALBUMIN 4.2 G/DL (3.2-5.2); ALKALINE PHOSPHATASE 105 U/L (46-116); ALT/SGPT 39 U/L (7.0-40); AST/SGOT 17 U/L (<34); BILIRUBIN,DIRECT 0.2 MG/DL (<0.4); BILIRUBIN,TOTAL 0.5 MG/DL (0.3-1.2); BLOOD UREA NITROGEN 7 MG/DL (9-23); CALCIUM LEVEL 9.4 MG/DL (8.5-10.1); CARBON DIOXIDE LEVEL 23 MMOL/L (20-31); CHLORIDE LEVEL 110 MMOL/L (98-107); CREATININE FOR GFR 0.98 MG/DL (0.70-1.30); GLOMERULAR FILTRATION RATE > 60.0 (>60); GLUCOSE, FASTING 139 MG/DL (60-100); POTASSIUM SERUM 3.7 MMOL/L (3.5-5.1); SALICYLATE LEVEL < 3.0 MG/DL (<30); SODIUM LEVEL 142 MMOL/L (136-145); TOTAL PROTEIN 7.4 G/DL (5.7-8.2)
[2024-01-13 22:56] LABS: THYROID STIMULATING HORMONE 2.509 uIU/ML (0.55-4.78)
[2024-01-14 00:07] LABS: BARBITURATES URINE NEGATIVE (NEGATIVE); BENZODIAZEPINES URINE NEGATIVE (NEGATIVE); CANNABINOIDS URINE NEGATIVE (NEGATIVE); METHADONE URINE NEGATIVE (NEGATIVE); OPIATES URINE NEGATIVE (NEGATIVE); PHENCYCLIDINE URINE NEGATIVE (NEGATIVE)
[2024-01-14 00:18] LABS: AMPHETAMINES LEVEL URINE POSITIVE (NEGATIVE); COCAINE METABOLITE URINE POSITIVE (NEGATIVE)
[2024-01-14] MEDS: LORazepam 2 MG TAB PO PRN ×2 (00:42→21:56)
[2024-01-14] MEDS: FOLIC ACID 1MG TAB PO SCH (08:16)
[2024-01-14] MEDS: MULTIVITAMINS/MINERALS THERAP 1 TAB PO SCH (08:16)
[2024-01-14] MEDS: THIAMINE 100 MG TAB PO SCH ×2 (08:17→21:07)
[2024-01-14] MEDS ORDERED: CHLORTHALIDONE 25 MG TAB PO ONE (11:50)
[2024-01-14] MEDS: CHLORTHALIDONE 25 MG TAB PO ONE (12:10)
[2024-01-14] MEDS: OXAZEPAM 15MG CAP PO ONE (16:33)
[2024-01-14] MEDS ORDERED: MAALOX 30 ML SUSP *UDC PO PRN (20:15)
[2024-01-14] MEDS ORDERED: diphenhydrAMINE 25MG CAP PO PRN (20:15)
[2024-01-14] MEDS ORDERED: ACETAMINOPHEN TAB 650MG DOSE (2X325MG) PO PRN (20:15)
[2024-01-14] MEDS ORDERED: MOM 30ML SUSPENSION UDC PO PRN (20:15)
[2024-01-14] MEDS ORDERED: IBUPROFEN 400MG TAB PO PRN (20:15)
[2024-01-14] MEDS ORDERED: traZODone 50 MG TAB PO PRN (20:15)
[2024-01-14 21:55] VITALS: BP 162/103
[2024-01-14] MEDS: QUEtiapine FUMARATE 25 MG TAB PO PRN (21:55)
[2024-01-15] VITALS (8 sets, daily range): BP systolic 91–162; BP diastolic 53–103; TEMP 97.1–97.5; O2SAT 98–100
[2024-01-15] MEDS: MULTIVITAMINS/MINERALS THERAP 1 TAB PO SCH (08:29)
[2024-01-15] MEDS: FOLIC ACID 1MG TAB PO SCH (08:29)
[2024-01-15] MEDS: OXAZEPAM 15MG CAP PO SCH (11:18)
[2024-01-15] MEDS: GABAPENTIN 300 MG CAP PO SCH (11:21)
[2024-01-15] MEDS: QUEtiapine FUMARATE 100 MG TAB PO SCH (11:21)
[2024-01-15] MEDS: PROPRANOLOL 20 MG TAB PO SCH (11:21)
[2024-01-15] MEDS: CHLORTHALIDONE 25 MG TAB PO SCH (11:21)
[2024-01-15] MEDS: carBAMazepine XR 200 MG TAB PO SCH (11:22)
[2024-01-15] MEDS: clonazePAM 0.5 MG TAB PO SCH (16:39)
[2024-01-16 02:00] VITALS: BP 109/70
[2024-01-16 06:08] VITALS: BP 140/76; TEMP 96.8; O2SAT 96
[2024-01-16 06:16] VITALS: BP 140/76
[2024-01-16] MEDS: OXAZEPAM 15MG CAP PO SCH (13:44)
[2024-01-16 14:00] VITALS: BP 142/63
[2024-01-16 18:02] VITALS: BP 142/63; TEMP 98.5
[2024-01-16 21:00] VITALS: BP 114/72
[2024-01-16] MEDS ORDERED: IBUPROFEN 600MG TAB PO PRN (22:20)
[2024-01-17 02:15] VITALS: BP 106/63
[2024-01-17 06:32] VITALS: BP 97/54; TEMP 97.2; O2SAT 98
[2024-01-17 06:40] VITALS: BP 97/54
[2024-01-17] MEDS: OXAZEPAM 15MG CAP PO SCH (09:12)
[2024-01-17 18:21] VITALS: BP 125/81; TEMP 97.3
[2024-01-17 21:24] VITALS: BP 133/76
[2024-01-18] MEDS: OXAZEPAM 15MG CAP PO SCH (05:25)
[2024-01-18 06:15] VITALS: BP 116/84; TEMP 97.5; O2SAT 96
[2024-01-18 17:37] VITALS: BP 136/81; TEMP 97.6; O2SAT 95
[2024-01-19 06:23] VITALS: BP 101/52; TEMP 97.4; O2SAT 97
[2024-01-19] MEDS: OXAZEPAM 15MG CAP PO SCH (09:00)
[2024-01-19 09:36] VITALS: BP 125/88
[2024-01-19] MEDS ORDERED: CHLO25TA PO (13:07)
== END 2024-01-19 14:01 | DRG 885 ==
LOC: M ED 21:17 → M ED INP 01-14 20:11 → M PSY 01-14 21:21
PROVIDERS: ADMIT Student in an Organized Health Care Education/Training Program; ATTEND Student in an Organized Health Care Education/Training Program
DX: F31.9 Bipolar disorder, unspecified (principal); R45.851 Suicidal ideations; F10.239 Alcohol dependence with withdrawal, unspecified; F15.10 Other stimulant abuse, uncomplicated; F14.10 Cocaine abuse, uncomplicated; M47.816 Spondylosis without myelopathy or radiculopathy, lumbar region; M54.12 Radiculopathy, cervical region; F60.2 Antisocial personality disorder; Z79.899 Other long term (current) drug therapy; Z88.8 Allergy status to other drugs, medicaments and biological substances; Z91.030 Bee allergy status; Z98.84 Bariatric surgery status

== ENCOUNTER → 2024-02-23 | Outpatient (CLI) | payer MEDICARE, MEDICAID ==
[~2024-02-23] MED LIST changes: +ARIP20TA51 PO; +CHLO25TA PO; +PROP60TA14 PO
== END ==
LOC: M OUTALCOH 07:59
PROVIDERS: ATTEND Psychiatry & Neurology Psychiatry
DX: F10.20 Alcohol dependence, uncomplicated (principal); F14.20 Cocaine dependence, uncomplicated

== ENCOUNTER 2024-03-23 15:00 | Outpatient (RCR) | payer MEDICARE, MEDICAID ==
[~2024-03-23 15:00] MED LIST changes: +GABA-1172 PO; -GABA-282 PO
== END 2024-03-26 ==
LOC: M OUTALCOH 15:00
PROVIDERS: ATTEND Psychiatry & Neurology Psychiatry
DX: F10.20 Alcohol dependence, uncomplicated (principal); F14.20 Cocaine dependence, uncomplicated

== ENCOUNTER 2024-04-24 10:00 | Outpatient (RCR) | payer MEDICARE, MEDICAID | END 2024-04-26 | LOC: M OUTALCOH 10:00 | PROVIDERS: ATTEND Psychiatry & Neurology Psychiatry | DX: F10.20 Alcohol dependence, uncomplicated (principal); F14.20 Cocaine dependence, uncomplicated ==

== ENCOUNTER 2024-05-18 15:00 | Outpatient (RCR) | payer MEDICARE, MEDICAID | END 2024-05-26 | LOC: M OUTALCOH 15:00 | PROVIDERS: ATTEND Psychiatry & Neurology Psychiatry | DX: F10.20 Alcohol dependence, uncomplicated (principal); F14.20 Cocaine dependence, uncomplicated | CPT/HCPCS: 90853; H0004 ==

== ENCOUNTER 2024-06-25 08:55 | Outpatient (RCR) | payer MEDICARE, MEDICAID | END 2024-06-26 | LOC: M OUTALCOH 08:55 | PROVIDERS: ATTEND Psychiatry & Neurology Psychiatry | DX: F10.20 Alcohol dependence, uncomplicated (principal); F14.20 Cocaine dependence, uncomplicated | CPT/HCPCS: 90832; 90853; G0463 ==

== ENCOUNTER 2024-07-23 14:53 | Outpatient (RCR) | payer MEDICARE, MEDICAID | END 2024-07-27 | LOC: M OUTALCOH 14:53 | PROVIDERS: ATTEND Psychiatry & Neurology Psychiatry | DX: F10.20 Alcohol dependence, uncomplicated (principal); F14.20 Cocaine dependence, uncomplicated ==

== ENCOUNTER 2024-08-20 16:00 | Outpatient (RCR) | payer MEDICARE, MEDICAID | END 2024-08-24 | LOC: M OUTALCOH 16:00 | PROVIDERS: ATTEND Psychiatry & Neurology Psychiatry | DX: F10.20 Alcohol dependence, uncomplicated (principal); F14.20 Cocaine dependence, uncomplicated ==

== ENCOUNTER → 2024-09-24 | Outpatient (RCR) | payer MEDICARE, MEDICAID | LOC: M OUTALCOH 08-27 15:00 | PROVIDERS: ATTEND Psychiatry & Neurology Psychiatry | DX: F10.20 Alcohol dependence, uncomplicated (principal); F14.20 Cocaine dependence, uncomplicated ==

== ENCOUNTER 2024-10-15 15:00 | Outpatient (RCR) | payer MEDICARE, MEDICAID | END 2024-10-24 | LOC: M OUTALCOH 15:00 | PROVIDERS: ATTEND Psychiatry & Neurology Psychiatry | DX: F10.20 Alcohol dependence, uncomplicated (principal); F14.20 Cocaine dependence, uncomplicated ==

== ENCOUNTER → 2024-10-24 | Outpatient (REF) | LOC: M PLAIMG 15:36 | PROVIDERS: ATTEND Internal Medicine | DX: M54.50 Low back pain, unspecified (principal) ==

== ENCOUNTER 2024-11-06 12:02 | Emergency (ER) | payer MEDICARE, MEDICAID ==
[~2024-11-06] VITALS: Ht 175.3 cm; Wt 144.7 kg
[2024-11-06 15:07] VITALS: BP 146/98; TEMP 97.3; O2SAT 100
== END 2024-11-06 15:13 | disposition home or self-care (01) ==
LOC: M ED 12:02
DX: M54.6 Pain in thoracic spine (principal); I25.2 Old myocardial infarction; Z91.030 Bee allergy status; Z88.8 Allergy status to other drugs, medicaments and biological substances; Z79.899 Other long term (current) drug therapy

== ENCOUNTER 2024-12-27 10:23 | Outpatient (RCR) | payer MEDICARE, MEDICAID ==
[~2024-12-27 10:23] MED LIST changes: -ABIL400I IM; +ARIP400S IM; -DEPA250T32 PO; +DIVA-65 PO
== END 2025-01-24 ==
LOC: M OUTALCOH 10:23
PROVIDERS: ATTEND Psychiatry & Neurology Psychiatry
DX: F10.20 Alcohol dependence, uncomplicated (principal); F14.20 Cocaine dependence, uncomplicated

== ENCOUNTER 2025-02-21 10:14 | Outpatient (RCR) | payer MEDICARE, MEDICAID | END 2025-02-24 | LOC: M OUTALCOH 10:14 | PROVIDERS: ATTEND Psychiatry & Neurology Psychiatry | DX: F10.20 Alcohol dependence, uncomplicated (principal); F14.20 Cocaine dependence, uncomplicated ==

== ENCOUNTER 2025-03-08 09:35 | Inpatient (IN) | payer MEDICARE, MEDICAID ==
[~2025-03-08] VITALS: Ht 172.7 cm; Wt 147.6 kg
[2025-03-08 10:18] LABS: PLATELET COUNT, AUTOMATED 304 10^3/uL (150-450)
[2025-03-08 10:58] LABS: ALT/SGPT 36 U/L (7.0-40); AST/SGOT 23 U/L (<34); CALCIUM LEVEL 8.6 MG/DL (8.5-10.1); CARBON DIOXIDE LEVEL 26 MMOL/L (20-31); CHLORIDE LEVEL 105 MMOL/L (98-107); CREATININE FOR GFR 0.95 MG/DL (0.70-1.30); GLOMERULAR FILTRATION RATE > 90.0 (>60); POTASSIUM SERUM 3.8 MMOL/L (3.5-5.1); SALICYLATE LEVEL < 3.0 MG/DL (<30); SODIUM LEVEL 141 MMOL/L (136-145)
[2025-03-08 11:00] LABS: ETHYL ALCOHOL (ETHANOL) 0.003 % (0.000-0.010)
[2025-03-08 11:55] LABS: BARBITURATES URINE NEGATIVE (NEGATIVE); BENZODIAZEPINES URINE NEGATIVE (NEGATIVE); CANNABINOIDS URINE NEGATIVE (NEGATIVE); METHADONE URINE NEGATIVE (NEGATIVE); OPIATES URINE NEGATIVE (NEGATIVE); PHENCYCLIDINE URINE NEGATIVE (NEGATIVE)
[2025-03-08] MEDS ORDERED: MOM 30 ML SUSPENSION UDC PO PRN (11:55)
[2025-03-08] MEDS ORDERED: MAALOX 30 ML SUSP *UDC PO PRN (11:55)
[2025-03-08] MEDS ORDERED: IBUPROFEN 400 MG TAB PO PRN (11:55)
[2025-03-08 11:58] LABS: AMPHETAMINES LEVEL URINE POSITIVE (NEGATIVE); COCAINE METABOLITE URINE POSITIVE (NEGATIVE)
[2025-03-08] MEDS ORDERED: AMIT25TA19 PO (12:03)
[2025-03-08] MEDS ORDERED: ARIP10TA63 PO (12:09)
[2025-03-08] MEDS ORDERED: HOME MED LIST COMPLETE! XX SCH (12:20)
[2025-03-08 12:43] VITALS: BP 160/92; TEMP 97; O2SAT 98
[2025-03-08] MEDS: THIAMINE 100 MG TAB PO SCH (12:55)
[2025-03-08] MEDS: FOLIC ACID 1 MG TAB PO SCH (12:55)
[2025-03-08] MEDS: MULTIVITAMINS/MINERALS THERAP 1 TAB PO SCH (12:55)
[2025-03-08] MEDS: OLANZapine 5 MG TAB PO ONE (12:56)
[2025-03-08] MEDS ORDERED: IBUPROFEN 600 MG TAB PO PRN (15:45)
[2025-03-08] MEDS: ARIPiprazole 15 MG TAB PO SCH (15:57)
[2025-03-08 16:03] VITALS: BP 142/93; TEMP 97.3; O2SAT 100
[2025-03-08 18:11] VITALS: BP 135/75
[2025-03-08] MEDS: ACETAMINOPHEN 325 MG TAB PO PRN (18:15)
[2025-03-09 06:00] VITALS: BP 121/64; TEMP 97.7; O2SAT 96
[2025-03-09 09:30] VITALS: BP 170/91
[2025-03-09] MEDS: buPROPion **XL** 150 MG TABLET PO SCH (09:44)
[2025-03-09 11:37] LABS: CHOLESTEROL LEVEL 158.0 MG/DL (<200); CHOLESTEROL RISK RATIO 4.93 (<5); LDL CHOLESTEROL 93.0 MG/DL (<100); NON-HDL-C 126.0 MG/DL; TRIGLYCERIDES LEVEL 165.0 MG/DL (<150)
[2025-03-09 15:57] VITALS: BP 143/90; TEMP 97.8; O2SAT 96
[2025-03-09 18:00] VITALS: BP 143/90
[2025-03-09 22:00] VITALS: BP 136/84
[2025-03-10 06:00] VITALS: BP 137/92
[2025-03-10 06:40] VITALS: BP 137/90; TEMP 97.6; O2SAT 96
[2025-03-10] MEDS ORDERED: ARIPiprazole 15 MG TAB PO SCH (09:00)
[2025-03-10 14:22] VITALS: BP 144/88
[2025-03-10 16:35] VITALS: BP 134/84; TEMP 96.9; O2SAT 97
[2025-03-11 06:37] VITALS: BP 130/58; TEMP 97.2; O2SAT 94
[2025-03-11 08:57] VITALS: BP 143/98
[2025-03-11] MEDS ORDERED: ABIL10TA9 PO (10:03)
[2025-03-11] MEDS ORDERED: BUPR150T12 PO (10:03)
[2025-03-11] MEDS ORDERED: QUET1TAB17 PO (10:03)
== END 2025-03-11 11:10 | disposition home or self-care (01) | DRG 885 ==
LOC: M ED 09:35 → M ED INP 11:51 → M PSY 12:39
PROVIDERS: ADMIT General Practice; ATTEND Psychiatry & Neurology Psychiatry
DX: F33.1 Major depressive disorder, recurrent, moderate (principal); R45.851 Suicidal ideations; Z59.00 Homelessness unspecified; F15.10 Other stimulant abuse, uncomplicated; F14.10 Cocaine abuse, uncomplicated; R03.0 Elevated blood-pressure reading, without diagnosis of hypertension; J40 Bronchitis, not specified as acute or chronic; M79.89 Other specified soft tissue disorders; F10.20 Alcohol dependence, uncomplicated; Z62.810 Personal history of physical and sexual abuse in childhood; Z63.5 Disruption of family by separation and divorce; Z88.8 Allergy status to other drugs, medicaments and biological substances; Z91.018 Allergy to other foods; Z91.030 Bee allergy status; Z79.899 Other long term (current) drug therapy

== ENCOUNTER 2025-04-02 13:49 | Inpatient (IN) | payer MEDICARE, MEDICAID ==
[~2025-04-02] VITALS: Ht 172.7 cm; Wt 143.9 kg
[~2025-04-02 13:49] MED LIST changes: +ABIL10TA9 PO; +AMIT25TA19 PO; +ARIP10TA63 PO; +BUPR150T12 PO; +QUET1TAB17 PO
[2025-04-02 14:45] LABS: PLATELET COUNT, AUTOMATED 315 10^3/uL (150-450)
[2025-04-02 15:02] LABS: ETHYL ALCOHOL (ETHANOL) < 0.003 % (0.000-0.010)
[2025-04-02 15:04] LABS: ALT/SGPT 37 U/L (7.0-40); AST/SGOT 24 U/L (<34); CALCIUM LEVEL 8.4 MG/DL (8.5-10.1); CARBON DIOXIDE LEVEL 24 MMOL/L (20-31); CHLORIDE LEVEL 108 MMOL/L (98-107); CREATININE FOR GFR 0.86 MG/DL (0.70-1.30); GLOMERULAR FILTRATION RATE > 90.0 (>60); POTASSIUM SERUM 3.6 MMOL/L (3.5-5.1); SALICYLATE LEVEL < 3.0 MG/DL (<30); SODIUM LEVEL 143 MMOL/L (136-145)
[2025-04-02 15:12] LABS: AMPHETAMINES LEVEL URINE POSITIVE (NEGATIVE); BARBITURATES URINE NEGATIVE (NEGATIVE); BENZODIAZEPINES URINE POSITIVE (NEGATIVE); CANNABINOIDS URINE NEGATIVE (NEGATIVE); COCAINE METABOLITE URINE POSITIVE (NEGATIVE); METHADONE URINE NEGATIVE (NEGATIVE); OPIATES URINE NEGATIVE (NEGATIVE); PHENCYCLIDINE URINE NEGATIVE (NEGATIVE)
[2025-04-02] MEDS: ONDANSETRON 4MG ORAL DISINTEGRATING TAB PO ONE (15:21)
[2025-04-02] MEDS: ACETAMINOPHEN 325 MG TAB PO ONE (15:21)
[2025-04-02] MEDS ORDERED: ACETAMINOPHEN 325 MG TAB PO PRN (16:50)
[2025-04-02] MEDS ORDERED: MAALOX 30 ML SUSP *UDC PO PRN (16:50)
[2025-04-02] MEDS ORDERED: MOM 30 ML SUSPENSION UDC PO PRN (16:50)
[2025-04-02] MEDS ORDERED: IBUPROFEN 400 MG TAB PO PRN (16:50)
[2025-04-02 18:18] VITALS: BP 133/64
[2025-04-02 18:20] VITALS: BP 133/64; TEMP 97; O2SAT 94
[2025-04-02] MEDS: ONDANSETRON 4MG ORAL DISINTEGRATING TAB PO PRN (18:44)
[2025-04-02] MEDS: THIAMINE 100 MG TAB PO SCH (21:00)
[2025-04-03] VITALS (8 sets, daily range): BP systolic 103–141; BP diastolic 56–85; TEMP 97.4–97.8; O2SAT 95–98
[2025-04-03] MEDS: chlordiazePOXIDE 25 MG CAP PO SCH (09:13)
[2025-04-03] MEDS: FOLIC ACID 1 MG TAB PO SCH (09:13)
[2025-04-03] MEDS: MULTIVITAMINS/MINERALS THERAP 1 TAB PO SCH (09:13)
[2025-04-03] MEDS: QUEtiapine FUMARATE 50MG TAB PO SCH (21:07)
[2025-04-04] VITALS (7 sets, daily range): BP systolic 110–138; BP diastolic 59–77; TEMP 97.4–98.5; O2SAT 93–99
[2025-04-04] MEDS: buPROPion **XL** 150 MG TABLET PO SCH (08:10)
[2025-04-04] MEDS ORDERED: BUPR150T12 PO (09:02)
[2025-04-04] MEDS ORDERED: ABIL10TA9 PO (09:02)
[2025-04-04] MEDS ORDERED: QUET1TAB17 PO (09:03)
[2025-04-04] MEDS ORDERED: HOME MED LIST COMPLETE! XX SCH (09:05)
[2025-04-04] MEDS: chlordiazePOXIDE 25 MG CAP PO SCH (10:38)
[2025-04-05 04:52] VITALS: BP 138/88; TEMP 97.3; O2SAT 93
[2025-04-05] MEDS: chlordiazePOXIDE 25 MG CAP PO SCH (09:42)
[2025-04-05 10:02] VITALS: BP 128/80; TEMP 98; O2SAT 96
[2025-04-05 10:06] VITALS: BP 128/80; TEMP 98; O2SAT 96
[2025-04-05 12:32] VITALS: BP 134/82; TEMP 97.7; O2SAT 97
[2025-04-05 17:50] VITALS: BP 131/75; TEMP 98.2; O2SAT 95
[2025-04-05 21:50] VITALS: BP 149/67; TEMP 97.2; O2SAT 99
[2025-04-06 06:27] VITALS: BP 119/70; TEMP 97.2; O2SAT 97
[2025-04-06] MEDS: chlordiazePOXIDE 25 MG CAP PO SCH (11:08)
[2025-04-06 21:00] VITALS: BP 141/87; TEMP 97.5; O2SAT 99
[2025-04-07 06:19] VITALS: BP 99/58; TEMP 96.9; O2SAT 95
[2025-04-07 15:32] VITALS: BP 144/84; TEMP 97.4; O2SAT 98
[2025-04-08 06:30] VITALS: BP 124/84; TEMP 96.9; O2SAT 98
[2025-04-08] MEDS ORDERED: QUET150T18 PO (09:56)
== END 2025-04-08 11:01 | disposition home or self-care (01) | DRG 885 ==
LOC: M ED 13:49 → M ED INP 16:50 → M PSY 18:05
PROVIDERS: ADMIT General Practice; ATTEND General Practice
DX: F33.1 Major depressive disorder, recurrent, moderate (principal); R45.851 Suicidal ideations; Z59.00 Homelessness unspecified; F10.90 Alcohol use, unspecified, uncomplicated; F14.90 Cocaine use, unspecified, uncomplicated; F15.90 Other stimulant use, unspecified, uncomplicated; F12.90 Cannabis use, unspecified, uncomplicated; F60.89 Other specific personality disorders; M47.896 Other spondylosis, lumbar region; I10 Essential (primary) hypertension; K76.0 Fatty (change of) liver, not elsewhere classified; K42.9 Umbilical hernia without obstruction or gangrene; Z81.8 Family history of other mental and behavioral disorders; Z63.5 Disruption of family by separation and divorce; Z81.1 Family history of alcohol abuse and dependence; Z62.810 Personal history of physical and sexual abuse in childhood; Z79.899 Other long term (current) drug therapy; Z91.030 Bee allergy status; Z56.0 Unemployment, unspecified; Z88.8 Allergy status to other drugs, medicaments and biological substances